=== PATIENT | male | born 1935 | race Caucasian/White ===

== ENCOUNTER → 2018-02-09 11:15 | Outpatient (CLI) | payer MEDICARE, OTHER, SELFPAY ==
[2017-10-21 10:03] VITALS: BMI 26.4
[2018-02-09 12:34] LABS: BUN Creatinine Ratio 26.2 (6-22); Blood Urea Nitrogen 34 mg/dL (9-20); Calcium 9.6 mg/dL (8.4-10.2); Carbon Dioxide 28 mmol/L (22-32); Chloride 91 mmol/L (98-107); Estimated Glomerular Filt Rate 53.1 mL/min (>60); Glucose 95 mg/dL (80-110); HEMOLYSIS < 15 (0-50); Potassium 5.3 mmol/L (3.4-5.1); Sodium 130 mmol/L (137-145)
== END ==
PROVIDERS: PCP Family Medicine; Visit Provider Family Medicine
DX: I10 Essential (primary) hypertension (principal)
CPT/HCPCS: 36415; 80048; 83735

== ENCOUNTER → 2018-03-24 09:07 | Outpatient (CLI) | payer MEDICARE, OTHER, SELFPAY ==
[2017-10-21 10:03] VITALS: BMI 26.4
[2018-03-24 10:51] LABS: BUN Creatinine Ratio 22.3 (6-22); Blood Urea Nitrogen 29 mg/dL (9-20); Calcium 9.3 mg/dL (8.4-10.2); Carbon Dioxide 27 mmol/L (22-32); Chloride 94 mmol/L (98-107); Estimated Glomerular Filt Rate 53.1 mL/min (>60); Glucose 112 mg/dL (80-110); HEMOLYSIS < 15 (0-50); Potassium 4.7 mmol/L (3.4-5.1); Sodium 134 mmol/L (137-145)
== END ==
PROVIDERS: Family Provider Family Medicine; PCP Family Medicine; Visit Provider Family Medicine
DX: N28.9 Disorder of kidney and ureter, unspecified (principal)
CPT/HCPCS: 36415; 80048

== ENCOUNTER → 2018-07-22 10:36 | Outpatient (CLI) | payer MEDICARE, OTHER, SELFPAY ==
[2017-10-21 10:03] VITALS: BMI 26.4
[2018-07-22 11:04] LABS: Add Manual Diff / Slide Review NO; Basophils Absolute Auto 100 /uL (0-100); Basophils Percent Auto 1.4 % (0-2); Eosinophils Absolute Auto 100 /uL (0-450); Eosinophils Percent Auto 1.7 % (2-4); Hematocrit 41.9 % (41-53); Hemoglobin 13.6 g/dL (13.5-17.5); Lymphocytes Absolute Auto 400 /uL (1100-4500); Lymphocytes Percent Auto 9.9 % (25-40); Mean Corpuscular HGB Conc 32.6 % (30-36); Mean Corpuscular Hemoglobin 31.8 PG (26-34); Mean Corpuscular Volume 97.6 fL (80-100); Monocytes Absolute Auto 900 /uL (0-900); Monocytes Percent Auto 21.4 % (3-14); Neutrophils Absolute Auto 2700 /uL (1500-7000); Neutrophils Percent Auto 65.6 % (50-75); Platelet Count 126 X10^3/uL (150-400); Red Blood Cell Count 4.29 X10^6/uL (4.5-5.9); Red Cell Distribution Width 15.3 % (11.6-14.8); White Blood Cell Count 4.2 X10^3/uL (4.5-11.0)
[2018-07-22 11:22] LABS: B Type Natriuretic Peptide 973 (<100)
[2018-07-22 11:43] LABS: Alanine Aminotransferase 35 IU/L (21-72); Albumin 4.8 g/dL (3.5-5.0); Albumin Globulin Ratio 1.4 (1.0-2.8); Alkaline Phosphatase 111 U/L (38-126); Aspartate Aminotransferase 54 IU/L (17-59); BUN Creatinine Ratio 22.7 (6-22); Bilirubin Total 0.6 mg/dL (0.2-1.3); Blood Urea Nitrogen 34 mg/dL (9-20); Calcium 9.6 mg/dL (8.4-10.2); Carbon Dioxide 23 mmol/L (22-32); Chloride 101 mmol/L (98-107); Globulin 3.5 g/dL (1.7-4.1); Glucose 83 mg/dL (80-110); HEMOLYSIS < 15 (0-50); Potassium 5.2 mmol/L (3.4-5.1); Sodium 136 mmol/L (137-145); Total Protein 8.3 g/dL (6.3-8.2)
== END ==
PROVIDERS: PCP Family Medicine; Visit Provider Family Medicine
DX: I50.9 Heart failure, unspecified (principal); Z51.81 Encounter for therapeutic drug level monitoring; Z79.01 Long term (current) use of anticoagulants
CPT/HCPCS: 36415; 80053; 83880; 85025

== ENCOUNTER → 2018-08-04 11:28 | Outpatient (CLI) | payer MEDICARE, OTHER, SELFPAY ==
[2017-10-21 10:03] VITALS: BMI 26.4
[2018-08-04 12:31] LABS: BUN Creatinine Ratio 22.3 (6-22); Blood Urea Nitrogen 29 mg/dL (9-20); Calcium 9.2 mg/dL (8.4-10.2); Carbon Dioxide 24 mmol/L (22-32); Chloride 96 mmol/L (98-107); Estimated Glomerular Filt Rate 53.1 mL/min (>60); Glucose 119 mg/dL (80-110); HEMOLYSIS < 15 (0-50); Potassium 4.6 mmol/L (3.4-5.1); Sodium 135 mmol/L (137-145)
[2018-08-04 12:53] LABS: B Type Natriuretic Peptide 1050 (<100)
== END ==
PROVIDERS: PCP Family Medicine; Visit Provider Family Medicine
DX: I50.32 Chronic diastolic (congestive) heart failure (principal)
CPT/HCPCS: 36415; 80048; 83880

== ENCOUNTER → 2018-12-11 09:06 | Outpatient (CLI) | payer MEDICARE, OTHER, SELFPAY ==
[2018-10-20 10:01] VITALS: BMI 27.1
[2018-12-11 09:38] LABS: Add Manual Diff / Slide Review NO; Basophils Absolute Auto 0 /uL (0-100); Eosinophils Absolute Auto 100 /uL (0-450); Eosinophils Percent Auto 2.3 % (2-4); Hematocrit 39.6 % (41-53); Hemoglobin 13.4 g/dL (13.5-17.5); Lymphocytes Absolute Auto 600 /uL (1100-4500); Mean Corpuscular HGB Conc 33.9 % (30-36); Mean Corpuscular Hemoglobin 32.9 PG (26-34); Mean Corpuscular Volume 96.9 fL (80-100); Monocytes Absolute Auto 600 /uL (0-900); Monocytes Percent Auto 11.7 % (3-14); Neutrophils Absolute Auto 3500 /uL (1500-7000); Platelet Count 111 X10^3/uL (150-400); Red Blood Cell Count 4.08 X10^6/uL (4.5-5.9); Red Cell Distribution Width 13.5 % (11.6-14.8); White Blood Cell Count 4.8 X10^3/uL (4.5-11.0)
[2018-12-11 09:42] LABS: Alanine Aminotransferase 23 IU/L (21-72); Albumin 4.5 g/dL (3.5-5.0); Albumin Globulin Ratio 1.5 (1.0-2.8); Alkaline Phosphatase 101 U/L (38-126); Aspartate Aminotransferase 34 IU/L (17-59); BUN Creatinine Ratio 22.3 (6-22); Blood Urea Nitrogen 29 mg/dL (9-20); Calcium 9.4 mg/dL (8.4-10.2); Carbon Dioxide 23 mmol/L (22-32); Chloride 96 mmol/L (98-107); Glucose 106 mg/dL (80-110); HEMOLYSIS < 15 (0-50); Magnesium 1.7 mg/dL (1.6-2.3); Potassium 5.1 mmol/L (3.4-5.1); Sodium 132 mmol/L (137-145); Total Protein 7.5 g/dL (6.3-8.2)
[2018-12-11 11:30] LABS: B Type Natriuretic Peptide 1170 (<100)
== END ==
PROVIDERS: PCP Family Medicine; Visit Provider Family Medicine
DX: I50.32 Chronic diastolic (congestive) heart failure (principal); K70.30 Alcoholic cirrhosis of liver without ascites; G62.0 Drug-induced polyneuropathy; R09.02 Hypoxemia; T45.1X5A Adverse effect of antineoplastic and immunosuppressive drugs, initial encounter
CPT/HCPCS: 36415; 80053; 83735; 83880; 85025

== ENCOUNTER → 2018-12-29 09:10 | Outpatient (CLI) | payer MEDICARE, OTHER, SELFPAY ==
[2018-10-20 10:01] VITALS: BMI 27.1
[2018-12-29 10:20] LABS: B Type Natriuretic Peptide 519 (<100)
[2018-12-29 10:30] LABS: Alanine Aminotransferase 33 IU/L (21-72); Albumin 4.5 g/dL (3.5-5.0); Albumin Globulin Ratio 1.4 (1.0-2.8); Alkaline Phosphatase 110 U/L (38-126); Aspartate Aminotransferase 47 IU/L (17-59); BUN Creatinine Ratio 28.6 (6-22); Blood Urea Nitrogen 40 mg/dL (9-20); Calcium 9.6 mg/dL (8.4-10.2); Carbon Dioxide 25 mmol/L (22-32); Chloride 93 mmol/L (98-107); Estimated Glomerular Filt Rate 48.6 mL/min (>60); Globulin 3.3 g/dL (1.7-4.1); Glucose 100 mg/dL (80-110); HEMOLYSIS < 15 (0-50); Potassium 5.2 mmol/L (3.4-5.1); Sodium 130 mmol/L (137-145); Total Protein 7.8 g/dL (6.3-8.2)
== END ==
PROVIDERS: PCP Family Medicine; Visit Provider Family Medicine
DX: K70.30 Alcoholic cirrhosis of liver without ascites (principal); I38 Endocarditis, valve unspecified; I50.9 Heart failure, unspecified
CPT/HCPCS: 36415; 80053; 83880

== ENCOUNTER → 2018-12-30 16:47 | Outpatient (CLI) | payer MEDICARE, OTHER, SELFPAY ==
[2018-10-20 10:01] VITALS: BMI 27.1
[2018-12-30 18:21] LABS: BUN Creatinine Ratio 28.8 (6-22); Blood Urea Nitrogen 46 mg/dL (9-20); Calcium 9.3 mg/dL (8.4-10.2); Carbon Dioxide 25 mmol/L (22-32); Chloride 93 mmol/L (98-107); Estimated Glomerular Filt Rate 41.7 mL/min (>60); Glucose 92 mg/dL (80-110); HEMOLYSIS < 15 (0-50); Potassium 5.3 mmol/L (3.4-5.1); Sodium 129 mmol/L (137-145)
== END ==
PROVIDERS: PCP Family Medicine; Visit Provider Family Medicine
DX: F10.10 Alcohol abuse, uncomplicated (principal); F10.21 Alcohol dependence, in remission; I50.32 Chronic diastolic (congestive) heart failure
CPT/HCPCS: 36415; 80048

== ENCOUNTER → 2019-02-19 11:18 | Outpatient (CLI) | payer MEDICARE, OTHER, SELFPAY ==
[2018-10-20 10:01] VITALS: BMI 27.1
[2019-02-19 12:21] LABS: Add Manual Diff / Slide Review NO; Basophils Absolute Auto 100 /uL (0-100); Basophils Percent Auto 1.4 % (0-2); Eosinophils Absolute Auto 100 /uL (0-450); Eosinophils Percent Auto 1.9 % (2-4); Hematocrit 37.2 % (41-53); Hemoglobin 12.3 g/dL (13.5-17.5); Lymphocytes Absolute Auto 600 /uL (1100-4500); Lymphocytes Percent Auto 11.7 % (25-40); Mean Corpuscular HGB Conc 33.1 % (30-36); Mean Corpuscular Hemoglobin 32.4 PG (26-34); Monocytes Absolute Auto 700 /uL (0-900); Monocytes Percent Auto 13.1 % (3-14); Neutrophils Absolute Auto 3700 /uL (1500-7000); Neutrophils Percent Auto 71.9 % (50-75); Platelet Count 133 X10^3/uL (150-400); Red Cell Distribution Width 15.7 % (11.6-14.8); White Blood Cell Count 5.2 X10^3/uL (4.5-11.0)
[2019-02-19 12:27] LABS: Alanine Aminotransferase 22 IU/L (21-72); Albumin 4.4 g/dL (3.5-5.0); Albumin Globulin Ratio 1.4 (1.0-2.8); Alkaline Phosphatase 100 U/L (38-126); Aspartate Aminotransferase 38 IU/L (17-59); BUN Creatinine Ratio 26.9 (6-22); Bilirubin Total 1.1 mg/dL (0.2-1.3); Blood Urea Nitrogen 35 mg/dL (9-20); Calcium 9.5 mg/dL (8.4-10.2); Carbon Dioxide 26 mmol/L (22-32); Chloride 104 mmol/L (98-107); Globulin 3.1 g/dL (1.7-4.1); Glucose 96 mg/dL (80-110); HEMOLYSIS < 15 (0-50); Magnesium 1.9 mg/dL (1.6-2.3); Potassium 4.3 mmol/L (3.4-5.1); Sodium 140 mmol/L (137-145); Total Protein 7.5 g/dL (6.3-8.2)
[2019-02-19 12:42] LABS: B Type Natriuretic Peptide 1200 (<100)
[2019-02-19 15:18] LABS: Creatinine Urine Random 43.2 mg/dL
[2019-02-19 15:23] LABS: Microalbumi Creatinin Ratio Ur 111.1 ug/mg CR (<30); Microalbumin Urine Random 4.8 mg/dL (0-1.6)
== END ==
PROVIDERS: PCP Family Medicine; Visit Provider Family Medicine
DX: G62.0 Drug-induced polyneuropathy (principal); I10 Essential (primary) hypertension; I48.91 Unspecified atrial fibrillation; K70.30 Alcoholic cirrhosis of liver without ascites; T45.1X5A Adverse effect of antineoplastic and immunosuppressive drugs, initial encounter
CPT/HCPCS: 36415; 80053; 82043; 82570; 83735; 83880; 85025

== ENCOUNTER → 2019-03-05 09:08 | Outpatient (CLI) | payer MEDICARE, OTHER, SELFPAY ==
[2018-10-20 10:01] VITALS: BMI 27.1
[2019-03-05 10:36] LABS: B Type Natriuretic Peptide 1130 (<100)
[2019-03-05 10:37] LABS: BUN Creatinine Ratio 27.1 (6-22); Blood Urea Nitrogen 38 mg/dL (9-20); Calcium 9.4 mg/dL (8.4-10.2); Carbon Dioxide 25 mmol/L (22-32); Chloride 102 mmol/L (98-107); Estimated Glomerular Filt Rate 48.6 mL/min (>60); Glucose 102 mg/dL (80-110); HEMOLYSIS < 15 (0-50); Magnesium 2.1 mg/dL (1.6-2.3); Potassium 4.5 mmol/L (3.4-5.1); Sodium 138 mmol/L (137-145)
== END ==
PROVIDERS: PCP Family Medicine; Visit Provider Family Medicine
DX: I50.9 Heart failure, unspecified (principal); G62.0 Drug-induced polyneuropathy; I10 Essential (primary) hypertension; I48.91 Unspecified atrial fibrillation; K70.30 Alcoholic cirrhosis of liver without ascites; T45.1X5A Adverse effect of antineoplastic and immunosuppressive drugs, initial encounter; F10.10 Alcohol abuse, uncomplicated; F10.21 Alcohol dependence, in remission; I50.32 Chronic diastolic (congestive) heart failure
CPT/HCPCS: 36415; 80048; 83735; 83880

== ENCOUNTER → 2019-05-20 08:03 | Outpatient (CLI) | payer MEDICARE, OTHER, SELFPAY ==
[2018-10-20 10:01] VITALS: BMI 27.1
[2019-05-20 09:43] LABS: INR 1.2 (0.9-1.3); Prothrombin Time 14.5 SECONDS (10.1-12.7)
== END ==
PROVIDERS: PCP Family Medicine; Visit Provider Internal Medicine Pulmonary Disease
DX: C34.90 Malignant neoplasm of unspecified part of unspecified bronchus or lung (principal)
CPT/HCPCS: 36415; 85610

== ENCOUNTER → 2019-05-31 09:07 | Outpatient (CLI) | payer MEDICARE, OTHER, SELFPAY ==
[2018-10-20 10:01] VITALS: BMI 27.1
== END ==
PROVIDERS: PCP Family Medicine; Visit Provider Internal Medicine Pulmonary Disease
DX: R91.1 Solitary pulmonary nodule (principal)
CPT/HCPCS: 86635

== ENCOUNTER → 2019-08-02 11:33 | Outpatient (CLI) | payer MEDICARE, OTHER, SELFPAY ==
[2018-10-20 10:01] VITALS: BMI 27.1
[2019-08-02 13:19] LABS: BUN Creatinine Ratio 24.9 (6-22); Blood Urea Nitrogen 46 mg/dL (9-20); Calcium 9.6 mg/dL (8.4-10.2); Carbon Dioxide 28 mmol/L (22-32); Chloride 103 mmol/L (98-107); Estimated Glomerular Filt Rate 35.3 mL/min (>60); Glucose 88 mg/dL (80-110); HEMOLYSIS < 15 (0-50); Magnesium 2.3 mg/dL (1.6-2.3); Potassium 4.9 mmol/L (3.4-5.1); Sodium 140 mmol/L (137-145)
== END ==
PROVIDERS: PCP Family Medicine; Referring Provider Family Medicine; Visit Provider Family Medicine
DX: I10 Essential (primary) hypertension (principal); I51.7 Cardiomegaly
CPT/HCPCS: 36415; 80048; 83735

== ENCOUNTER → 2019-08-20 09:21 | Outpatient (CLI) | payer MEDICARE, OTHER, SELFPAY ==
[2018-10-20 10:01] VITALS: BMI 27.1
[2019-08-20 10:14] LABS: Alanine Aminotransferase 14 IU/L (<50); Albumin 4.1 g/dL (3.5-5.0); Albumin Globulin Ratio 1.2 (1.0-2.8); Alkaline Phosphatase 149 U/L (38-126); Aspartate Aminotransferase 32 IU/L (17-59); BUN Creatinine Ratio 21.1 (6-22); Bilirubin Total 0.7 mg/dL (0.2-1.3); Blood Urea Nitrogen 34 mg/dL (9-20); Carbon Dioxide 24 mmol/L (22-32); Chloride 102 mmol/L (98-107); Estimated Glomerular Filt Rate 41.4 mL/min (>60); Globulin 3.4 g/dL (1.7-4.1); Glucose 94 mg/dL (80-110); HEMOLYSIS < 15 (0-50); Potassium 4.6 mmol/L (3.4-5.1); Sodium 135 mmol/L (137-145); Total Protein 7.5 g/dL (6.3-8.2)
== END ==
PROVIDERS: PCP Family Medicine
DX: K74.60 Unspecified cirrhosis of liver (principal)
CPT/HCPCS: 36415; 80053

== ENCOUNTER → 2019-09-08 08:04 | Outpatient (CLI) | payer MEDICARE, OTHER, SELFPAY ==
[2018-10-20 10:01] VITALS: BMI 27.1
[2019-09-08 12:23] LABS: Alanine Aminotransferase 15 IU/L (<50); Albumin 4.4 g/dL (3.5-5.0); Albumin Globulin Ratio 1.3 (1.0-2.8); Alkaline Phosphatase 142 U/L (38-126); Aspartate Aminotransferase 33 IU/L (17-59); BUN Creatinine Ratio 16.4 (6-22); Bilirubin Total 0.5 mg/dL (0.2-1.3); Blood Urea Nitrogen 39 mg/dL (9-20); Calcium 9.4 mg/dL (8.4-10.2); Carbon Dioxide 24 mmol/L (22-32); Chloride 100 mmol/L (98-107); Estimated Glomerular Filt Rate 26.4 mL/min (>60); Globulin 3.4 g/dL (1.7-4.1); Glucose 143 mg/dL (80-110); HEMOLYSIS < 15 (0-50); Sodium 138 mmol/L (137-145); Total Protein 7.8 g/dL (6.3-8.2)
[2019-09-08 12:29] LABS: Potassium 6.6 mmol/L (3.4-5.1)
== END ==
PROVIDERS: PCP Family Medicine; Referring Provider Family Medicine
DX: K74.60 Unspecified cirrhosis of liver (principal)
CPT/HCPCS: 36415; 80053

== ENCOUNTER → 2019-09-10 09:38 | Outpatient (CLI) | payer MEDICARE, OTHER, SELFPAY ==
[2018-10-20 10:01] VITALS: BMI 27.1
[2019-09-10 10:41] LABS: Alanine Aminotransferase 15 IU/L (<50); Albumin 4.5 g/dL (3.5-5.0); Albumin Globulin Ratio 1.2 (1.0-2.8); Alkaline Phosphatase 134 U/L (38-126); Aspartate Aminotransferase 34 IU/L (17-59); BUN Creatinine Ratio 18.1 (6-22); Bilirubin Total 0.8 mg/dL (0.2-1.3); Blood Urea Nitrogen 39 mg/dL (9-20); Calcium 9.4 mg/dL (8.4-10.2); Carbon Dioxide 25 mmol/L (22-32); Chloride 101 mmol/L (98-107); Estimated Glomerular Filt Rate 29.6 mL/min (>60); Globulin 3.7 g/dL (1.7-4.1); Glucose 102 mg/dL (80-110); HEMOLYSIS < 15 (0-50); Sodium 137 mmol/L (137-145); Total Protein 8.2 g/dL (6.3-8.2)
[2019-09-10 10:46] LABS: Potassium 5.4 mmol/L (3.4-5.1)
== END ==
PROVIDERS: PCP Family Medicine
DX: K74.60 Unspecified cirrhosis of liver (principal)
CPT/HCPCS: 36415; 80053

== ENCOUNTER → 2019-11-24 09:38 | Outpatient (CLI) | payer MEDICARE, OTHER, SELFPAY ==
[2018-10-20 10:01] VITALS: BMI 27.1
[2019-11-24 11:44] LABS: BUN Creatinine Ratio 17.5 (6-22); Blood Urea Nitrogen 28 mg/dL (9-20); Calcium 9.6 mg/dL (8.4-10.2); Carbon Dioxide 26 mmol/L (22-32); Chloride 101 mmol/L (98-107); Estimated Glomerular Filt Rate 41.6 mL/min (>60); Glucose 95 mg/dL (80-110); HEMOLYSIS < 15 (0-50); Sodium 138 mmol/L (137-145)
== END ==
PROVIDERS: PCP Family Medicine; Referring Provider Nuclear Medicine Nuclear Cardiology; Visit Provider Nuclear Medicine Nuclear Cardiology
DX: I50.9 Heart failure, unspecified (principal)
CPT/HCPCS: 36415; 80048

== ENCOUNTER → 2020-01-28 14:51 | Outpatient (CLI) | payer MEDICARE, OTHER, SELFPAY ==
[2018-10-20 10:01] VITALS: BMI 27.1
--- NOTE | 2020-01-28 14:58 | DI.RAD.S_ITS ---
PROCEDURE: XR SHOULDER LT MIN 2V INDICATIONS: Progressive neck and left shoulder pain TECHNIQUE: 2 views of the shoulder were acquired. COMPARISON: None. FINDINGS: Bones: No fractures or dislocations. No suspicious bony lesions. Visualized ribs appear intact. Moderate to severe acromioclavicular degenerative narrowing. Soft tissues: No suspicious soft tissue calcifications. Heart appears mildly enlarged. IMPRESSION: Moderate to severe acromioclavicular degenerative narrowing. Dictated by: Diana Narvaez M.D. on 01/28/2020 at 17:02 Approved by: Diana Narvaez M.D. on 01/28/2020 at 17:02
--- NOTE | 2020-01-28 14:58 | DI.RAD.S_ITS ---
PROCEDURE: XR CERVICAL SPINE 2V OR 3V INDICATIONS: Progressive neck and left shoulder pain TECHNIQUE: 3 view(s) of the cervical spine were acquired. COMPARISON: None. FINDINGS: Bones: No fractures or dislocations to the C7-T1 level. The lateral masses of C1 appear intact on the odontoid view. No suspicious bony lesions. There is reversal of cervical curvature. There is trace anterolisthesis of C5 on C6 trace retrolisthesis of C6 on C7. Moderate to severe disc space narrowing is present at C5-6, severe at C6-7. Anterior bridging osteophytes are most notable at C6-7. Multilevel uncovertebral arthropathy is present. Soft tissues: No prevertebral soft tissue swelling. IMPRESSION: Multilevel degenerative changes most prominent C6-7. Dictated by: Diana Narvaez M.D. on 01/28/2020 at 17:01 Approved by: Daina Narvaez M.D. on 01/28/2020 at 17:02
== END ==
PROVIDERS: PCP Family Medicine; Referring Provider Family Medicine; Visit Provider Family Medicine
DX: M54.2 Cervicalgia (principal); M25.512 Pain in left shoulder; M47.812 Spondylosis without myelopathy or radiculopathy, cervical region
CPT/HCPCS: 72040; 73030

== ENCOUNTER → 2020-03-06 11:20 | Outpatient (CLI) | payer MEDICARE, OTHER, SELFPAY ==
[2018-10-20 10:01] VITALS: BMI 27.1
[2020-03-07 13:29] LABS: COVID19 Sendout Not Detected (Not Detect)
== END ==
PROVIDERS: PCP Family Medicine; Visit Provider Physician Assistant
DX: Z01.812 Encounter for preprocedural laboratory examination (principal)
CPT/HCPCS: 87635

== ENCOUNTER 2020-05-15 20:43 | Emergency (ER) | payer MEDICARE, OTHER, SELFPAY ==
[2020-03-14 14:47] VITALS: BMI 27.1
[2020-05-15 20:47] VITALS: BP 136/63; PULSE 83; RESP 22; TEMP 36.3; O2SAT 90
[2020-05-15 21:12] LABS: Add Manual Diff / Slide Review NO; Basophils Absolute Auto 100 /uL (0-100); Basophils Percent Auto 0.9 % (0-2); Eosinophils Absolute Auto 300 /uL (0-450); Hematocrit 37.2 % (41-53); Lymphocytes Absolute Auto 1100 /uL (1100-4500); Lymphocytes Percent Auto 12.4 % (25-40); Mean Corpuscular HGB Conc 32.4 % (30-36); Mean Corpuscular Hemoglobin 30.5 PG (26-34); Mean Corpuscular Volume 94.3 fL (80-100); Monocytes Absolute Auto 700 /uL (0-900); Neutrophils Absolute Auto 6800 /uL (1500-7000); Neutrophils Percent Auto 75.7 % (50-75); Platelet Count 202 X10^3/uL (150-400); Red Blood Cell Count 3.95 X10^6/uL (4.5-5.9); Red Cell Distribution Width 15.1 % (11.6-14.8)
[2020-05-15 21:13] VITALS: BP 140/65; PULSE 73; RESP 15; O2SAT 100
[2020-05-15 21:24] LABS: Alanine Aminotransferase 20 IU/L (<50); Albumin 4.3 g/dL (3.5-5.0); Alkaline Phosphatase 157 U/L (38-126); Aspartate Aminotransferase 28 IU/L (17-59); Bilirubin Total 0.4 mg/dL (0.2-1.3); Blood Urea Nitrogen 53 mg/dL (9-20); Calcium 9.4 mg/dL (8.4-10.2); Carbon Dioxide 26 mmol/L (22-32); Chloride 104 mmol/L (98-107); Estimated Glomerular Filt Rate 20.5 mL/min (>60); Globulin 4.4 g/dL (1.7-4.1); Glucose 119 mg/dL (80-110); HEMOLYSIS < 15 (0-50); Potassium 5.2 mmol/L (3.4-5.1); Sodium 138 mmol/L (137-145); Total Protein 8.7 g/dL (6.3-8.2)
[2020-05-15 21:30] VITALS: BP 135/65; PULSE 76; RESP 19
[2020-05-15 22:01] VITALS: BP 130/63; PULSE 69; RESP 14; O2SAT 100
--- NOTE | 2020-05-15 22:19 | ED_ITS ---
HPI - Recheck/Abnormal Lab/Rx General Chief Complaint: Recheck/Abnormal Lab/Rx Stated Complaint: Elevated Potassium Time Seen by Provider: 05/15/20 20:57 Source: patient Mode of arrival: Ambulatory History of Present Illness HPI narrative: 84-year-old gentleman presents to the emergency room after being contacted by outpatient physician regarding abnormal lab work today. His potassium was elevated as was his creatinine. He is actually feeling quite well and would not considered coming to the emergency room last he had been directed to do so. Related Data Home Medications Medication Instructions Recorded Confirmed digoxin [Lanoxin] 0.125 mg PO QDAY #0 10/29/12 02/14/20 furosemide 20 mg tablet 40 mg PO QDAY tab 12/21/19 02/14/20 Previous Rx's Medication Instructions Recorded albuterol sulfate [Ventolin HFA] 1 puff INH Q4HP PRN #1 ea 09/03/17 metoprolol succinate 200 mg 200 mg PO QDAY #90 tab 02/09/18 tablet,extended release 24 hr spironolactone 25 mg tablet 25 mg PO DAILY #30 tab 12/16/18 losartan 100 mg tablet 50 mg PO QDAY #45 tab 08/05/19 Handicap Placard #1 ea 08/18/19 warfarin 5 mg tablet See Rx Instructions PO DAILY #90 12/22/19 tab lidocaine 5 % topical patch 1 patch TOP DAILY #30 each 02/14/20 gabapentin 300 mg capsule 300 mg PO BEDTIME #90 cap 03/08/20 Allergies Allergy/AdvReac Type Severity Reaction Status Date / Time Penicillins Allergy Mild RASH Verified 02/14/20 10:50 Review of Systems Review of Systems Narrative: Pertinent positive and negative findings as per HPI Remainder of review of systems is otherwise unremarkable for Constitutional: Fevers, chills, ENT: No sore throat, neck pain, ear pain CV: Chest pain, palpitations, Respiratory: Cough, wheeze, GI: Nausea, vomiting, diarrhea, Patient History Medical History (HFpEF) heart failure with preserved ejection fraction Atrial fibrillation Cataract Cirrhosis COPD (chronic obstructive pulmonary disease) (~2011) Foot pain (~2012) Hearing deficit Heart failure, systolic Hyperlipidemia Hyperparathyroidism Hypertension Lower extremity neuropathy Lung cancer (~2012) Neck pain Normal stress echocardiogram (~09/12/10) Shoulder pain Surgical History Status post parathyroidectomy (~1982) Surgical procedure planned (~06/08/12) Family History Sister Hypertension Social History Smoking Status: Former smoker Tobacco: How many years used: 30 Smoking Status: Former smoker Exam Narrative Exam Narrative: General: no acute distress. Able to give a complete and coher ent history. HEENT: Moist mucous membranes, normal sclera with reactive pupils, Neck: No JVD, supple Respiratory: Lungs are clear to auscultation, no wheezing no rales no rhonchi. Full and symmetrical air movement Cardiac: Irrgular rate and rhythm, no murmurs no bruits Abdomen: Soft, nontender good bowel tones, no flank pain Skin: Warm and dry, no rashes Neurologic: Grossly neurologically intact with no obvious asymmetries or abnormalities Extremities: No trauma, well perfused Psych: Cooperative, appropriate insight and affect Initial Vital Signs Initial Vital Signs: Vital Signs Temperature 97.3 F L 05/15/20 20:47 Pulse Rate 83 05/15/20 20:47 Respiratory Rate 22 05/15/20 20:47 Blood Pressure 136/63 05/15/20 20:47 Pulse Oximetry 90 L 05/15/20 20:47 Course Orders Ordered: ED Orders 05/15/20 20:57 EKG-12 Lead Stat 05/15/20 21:05 Complete Blood Count AUTO DIFF Stat Comprehensive Metabolic Panel Stat Digoxin Stat Prothrombin Time INR Stat Vital Signs Vital signs: Vital Signs - 8 hr 05/15/20 22:30 05/15/20 23:00 Pulse Rate 70 69 Respiratory Rate 12 11 L Blood Pressure 144/64 H 142/64 H Pulse Oximetry 100 100 MDM - Recheck/Abnormal Lab/Rx Medical Records Attestation: I reviewed the patient's medical records. Lab Data Attestation: I reviewed the patient's lab results. Result diagrams: 05/15/20 21:05 05/15/20 21:05 Labs: Lab Results 05/15/20 05/15/20 05/15/20 Range/Units 21:05 21:05 21:05 WBC 9.0 (4.5-11.0) X10^3/uL RBC 3.95 L (4.5-5.9) X10^6/uL Hgb 12.0 L (13.5-17.5) g/dL Hct 37.2 L (41-53) % MCV 94.3 (80-100) fL MCH 30.5 (26-34) PG MCHC 32.4 (30-36) % RDW 15.1 H (11.6-14.8) % Plt Count 202 (150-400) X10^3/uL Neut % (Auto) 75.7 H (50-75) % Lymph % (Auto) 12.4 L (25-40) % Caldwell % (Auto) 8.0 (3-14) % Eos % (Auto) 3.0 (2-4) % Baso % (Auto) 0.9 (0-2) % Neut # (Auto) 6800 (8778-3596) /uL Lymph # (Auto) 1100 (7803-8869) /uL Caldwell # (Auto) 700 (0-900) /uL Eos # (Auto) 300 (0-450) /uL Baso # (Auto) 100 (0-100) /uL PT 34.2 H (10.1-12.7) SECONDS INR 3.0 H (0.9-1.3) Sodium 138 (137-145) mmol/L Potassium 5.2 H (3.4-5.1) mmol/L Chloride 104 (98-107) mmol/L Carbon Dioxide 26 (22-32) mmol/L BUN 53 H (9-20) mg/dL Creatinine 2.95 H (0.66-1.25) mg/dL Estimated GFR 20.5 L (>60) mL/min BUN/Creatinine Ratio 18.0 (6-22) Glucose 119 H (80-110) mg/dL Calcium 9.4 (8.4-10.2) mg/dL Total Bilirubin 0.4 (0.2-1.3) mg/dL AST 28 (17-59) IU/L ALT 20 (<50) IU/L Alkaline Phosphatase 157 H (38-126) U/L Total Protein 8.7 H (6.3-8.2) g/dL Albumin 4.3 (3.5-5.0) g/dL Globulin 4.4 H (1.7-4.1) g/dL Albumin/Globulin Ratio 1.0 (1.0-2.8) Digoxin (0.8-2.0) ng/mL 05/15/20 Range/Units 21:05 WBC (4.5-11.0) X10^3/uL RBC (4.5-5.9) X10^6/uL Hgb (13.5-17.5) g/dL Hct (41-53) % MCV (80-100) fL MCH (26-34) PG MCHC (30-36) % RDW (11.6-14.8) % Plt Count (150-400) X10^3/uL Neut % (Auto) (50-75) % Lymph % (Auto) (25-40) % Caldwell % (Auto) (3-14) % Eos % (Auto) (2-4) % Baso % (Auto) (0-2) % Neut # (Auto) (9349-8472) /uL Lymph # (Auto) (8215-6833) /uL Caldwell # (Auto) (0-900) /uL Eos # (Auto) (0-450) /uL Baso # (Auto) (0-100) /uL PT (10.1-12.7) SECONDS INR (0.9-1.3) Sodium (137-145) mmol/L Potassium (3.4-5.1) mmol/L Chloride (98-107) mmol/L Carbon Dioxide (22-32) mmol/L BUN (9-20) mg/dL Creatinine (0.66-1.25) mg/dL Estimated GFR (>60) mL/min BUN/Creatinine Ratio (6-22) Glucose (80-110) mg/dL Calcium (8.4-10.2) mg/dL Total Bilirubin (0.2-1.3) mg/dL AST (17-59) IU/L ALT (<50) IU/L Alkaline Phosphatase (38-126) U/L Total Protein (6.3-8.2) g/dL Albumin (3.5-5.0) g/dL Globulin (1.7-4.1) g/dL Albumin/Globulin Ratio (1.0-2.8) Digoxin 0.9 (0.8-2.0) ng/mL ECG Data Attestation: I personally reviewed and interpreted this ECG as follows: Interpretation: Atrial fibrillation at a rate of 72 Leftward axis, incomplete right bundle branch block Nonspecific ST T wave abnormalities without evidence of acute ischemia or peaked T-waves, similar to August 2015 EKG MDM Narrative Medical decision making narrative: 84-year-old gentleman with complex medical history. Increasing neck pain with concern for infectious disease component. Scheduled to see infectious disease on 05/17 and had pre visit lab work done today that revealed new acute kidney injury and elevated potassium. Repeat labs today show potassium is back to a safe range with EKG not showing any acute changes consistent with hyperkalemia. Kidney function is somewhat improved. He does have a history of congestive heart failure and is currently on spironolactone and Lasix for this. Will ask him to discontinue the spironolactone for the time being and hold the Lasix for the next 3 days. Will ask him to follow-up with his primary care physician with lab work prior in 3-4 days. Clearly reviewed signs and symptoms of increasing heart failure and asked that he return to the emergency department with increasing orthopnea, dyspnea or lower extremity edema. He is safe for home discharge Discharge Plan Departure Patient Disposition: Home Clinical Impression: Acute hyperkalemia, Acute kidney injury Activity Restrictions/Additional Instructions: Thank you for coming in today You had blood work earlier this morning that showed your potassium level at 6.5 and your creatinine at 3.2. Your sent to the emergency room to have these values recheck it. Your potassium level on repeat testing was down to 5.2 and the creatinine is down to 2.9. When kidney function changes so significantly digoxin and warfarin levels can also change. Fortunately your digoxin was in the appropriate range (.9) and your INR was appropriate at 3 To make sure that your potassium level continues at a safe level and to protect her kidney is am going to ask you to stop the spironolactone and hold the furosemide until May 20. You will need close follow-up with all of these parameters. I would recommend a repeat blood draw the morning of May [address] Shepherd the afternoon of the If you notice palpitations, chest pain, increasing shortness of breath while laying flat or exercising, significantly increased lower extremity edema or othe r problems, please return to the emergency department immediately Prescriptions: No Action digoxin [Lanoxin] 250 MCG tablet 0.125 mg PO QDAY Qty: 0 RF: 0 albuterol sulfate [Ventolin HFA] 90 MCG/PUFF HFA aerosol inhaler 1 puff INH Q4HP PRNQty: 1 RF: 5 losartan 100 mg tablet 50 mg PO QDAY Qty: 45 RF: 3 (DME) Handicap Placard Qty: 1 RF: 0 furosemide [Lasix] 20 mg tablet 40 mg PO QDAY RF: 0 warfarin [Coumadin] 5 mg tablet See Rx Instructions PO DAILY Qty: 90 RF: 3 gabapentin 300 mg capsule 300 mg PO BEDTIME Qty: 90 RF: 1 metoprolol succinate [Toprol XL] 200 mg tablet extended release 24 hr 200 mg PO QDAY Qty: 90 RF: 3 spironolactone 25 mg tablet 25 mg PO DAILY Qty: 30 RF: 1 lidocaine 5 % adhesive patch,medicated 1 patch TOP DAILY Qty: 30 RF: 5 Referrals: Ashwin Shepherd, [Primary Care Provider] -
[2020-05-15 22:30] VITALS: BP 144/64; PULSE 70; RESP 12; O2SAT 100
[2020-05-15 22:31] LABS: Prothrombin Time 34.2 SECONDS (10.1-12.7)
[2020-05-15 22:50] LABS: Digoxin 0.9 ng/mL (0.8-2.0)
[2020-05-15 23:00] VITALS: BP 142/64; PULSE 69; RESP 11; O2SAT 100
== END 2020-05-15 23:36 | disposition home or self-care (01) ==
PROVIDERS: Emergency Provider Emergency Medicine; Family Provider Family Medicine; PCP Family Medicine
DX: E87.5 Hyperkalemia (principal); N17.9 Acute kidney failure, unspecified; I48.91 Unspecified atrial fibrillation; I11.0 Hypertensive heart disease with heart failure; I50.9 Heart failure, unspecified; E21.3 Hyperparathyroidism, unspecified; R07.9 Chest pain, unspecified
CPT/HCPCS: 36415; 80053; 80162; 85025; 85610; 93005; 99285

== ENCOUNTER → 2020-05-26 11:38 | Outpatient (CLI) | payer MEDICARE, OTHER, SELFPAY ==
[2020-05-22 10:54] VITALS: BMI 27.1
[2020-05-26 12:59] LABS: Add Manual Diff / Slide Review NO; Basophils Absolute Auto 100 /uL (0-100); Basophils Percent Auto 0.7 % (0-2); Eosinophils Absolute Auto 200 /uL (0-450); Eosinophils Percent Auto 2.9 % (2-4); Hematocrit 34.1 % (41-53); Hemoglobin 11.1 g/dL (13.5-17.5); Lymphocytes Absolute Auto 800 /uL (1100-4500); Lymphocytes Percent Auto 9.4 % (25-40); Mean Corpuscular HGB Conc 32.7 % (30-36); Mean Corpuscular Hemoglobin 30.8 PG (26-34); Mean Corpuscular Volume 94.1 fL (80-100); Monocytes Absolute Auto 700 /uL (0-900); Monocytes Percent Auto 9.4 % (3-14); Neutrophils Absolute Auto 6200 /uL (1500-7000); Neutrophils Percent Auto 77.6 % (50-75); Platelet Count 169 X10^3/uL (150-400); Red Blood Cell Count 3.62 X10^6/uL (4.5-5.9); Red Cell Distribution Width 14.9 % (11.6-14.8)
[2020-05-26 13:31] LABS: Alanine Aminotransferase 19 IU/L (<50); Albumin Globulin Ratio 1.2 (1.0-2.8); Alkaline Phosphatase 141 U/L (38-126); Aspartate Aminotransferase 30 IU/L (17-59); BUN Creatinine Ratio 18.5 (6-22); Bilirubin Total 0.3 mg/dL (0.2-1.3); Blood Urea Nitrogen 46 mg/dL (9-20); Calcium 9.5 mg/dL (8.4-10.2); Carbon Dioxide 26 mmol/L (22-32); Chloride 107 mmol/L (98-107); Globulin 3.4 g/dL (1.7-4.1); Glucose 89 mg/dL (80-110); HEMOLYSIS < 15 (0-50); Sodium 140 mmol/L (137-145); Total Protein 7.4 g/dL (6.3-8.2)
[2020-05-26 13:32] LABS: Potassium 6.1 mmol/L (3.4-5.1)
[2020-05-26 14:01] LABS: Thyroid Stimulating Hormone 7.04 uIU/mL (0.47-4.68)
== END ==
PROVIDERS: Family Provider Family Medicine; PCP Family Medicine; Referring Provider Internal Medicine Hematology & Oncology; Visit Provider Internal Medicine Hematology & Oncology
DX: C34.90 Malignant neoplasm of unspecified part of unspecified bronchus or lung (principal)
CPT/HCPCS: 36415; 80053; 84443; 85025

== ENCOUNTER → 2020-06-16 12:52 | Outpatient (CLI) | payer MEDICARE, OTHER, SELFPAY ==
[2020-05-22 10:54] VITALS: BMI 27.1
[2020-06-06 12:47] VITALS: O2SAT 87
[2020-06-16 14:05] LABS: Add Manual Diff / Slide Review NO; Basophils Absolute Auto 100 /uL (0-100); Basophils Percent Auto 0.8 % (0-2); Eosinophils Absolute Auto 200 /uL (0-450); Eosinophils Percent Auto 2.7 % (2-4); Hematocrit 35.4 % (41-53); Hemoglobin 11.2 g/dL (13.5-17.5); Lymphocytes Absolute Auto 600 /uL (1100-4500); Lymphocytes Percent Auto 8.9 % (25-40); Mean Corpuscular HGB Conc 31.6 % (30-36); Mean Corpuscular Hemoglobin 29.8 PG (26-34); Mean Corpuscular Volume 94.3 fL (80-100); Monocytes Absolute Auto 600 /uL (0-900); Monocytes Percent Auto 8.5 % (3-14); Neutrophils Absolute Auto 5600 /uL (1500-7000); Neutrophils Percent Auto 79.1 % (50-75); Platelet Count 158 X10^3/uL (150-400); Red Blood Cell Count 3.75 X10^6/uL (4.5-5.9); Red Cell Distribution Width 15.6 % (11.6-14.8); White Blood Cell Count 7.1 X10^3/uL (4.5-11.0)
[2020-06-16 14:20] LABS: Alanine Aminotransferase 16 IU/L (<50); Albumin 4.2 g/dL (3.5-5.0); Albumin Globulin Ratio 1.1 (1.0-2.8); Alkaline Phosphatase 147 U/L (38-126); Aspartate Aminotransferase 29 IU/L (17-59); BUN Creatinine Ratio 16.1 (6-22); Bilirubin Total 0.5 mg/dL (0.2-1.3); Blood Urea Nitrogen 32 mg/dL (9-20); Calcium 9.4 mg/dL (8.4-10.2); Carbon Dioxide 27 mmol/L (22-32); Chloride 108 mmol/L (98-107); Estimated Glomerular Filt Rate 32.3 mL/min (>60); Globulin 3.9 g/dL (1.7-4.1); Glucose 97 mg/dL (80-110); HEMOLYSIS < 15 (0-50); Potassium 5.1 mmol/L (3.4-5.1); Sodium 141 mmol/L (137-145); Total Protein 8.1 g/dL (6.3-8.2)
[2020-06-16 15:15] LABS: Thyroid Stimulating Hormone 5.72 uIU/mL (0.47-4.68)
== END ==
PROVIDERS: Family Provider Family Medicine; PCP Family Medicine; Referring Provider Internal Medicine Hematology & Oncology; Visit Provider Internal Medicine Hematology & Oncology
DX: C34.90 Malignant neoplasm of unspecified part of unspecified bronchus or lung (principal)
CPT/HCPCS: 36415; 80053; 84443; 85025

== ENCOUNTER → 2020-07-07 12:16 | Outpatient (CLI) | payer MEDICARE, OTHER, SELFPAY ==
[2020-05-22 10:54] VITALS: BMI 27.1
[2020-06-06 12:47] VITALS: O2SAT 87
[2020-07-07 14:31] LABS: Alanine Aminotransferase 16 IU/L (<50); Albumin 3.9 g/dL (3.5-5.0); Albumin Globulin Ratio 1.1 (1.0-2.8); Alkaline Phosphatase 146 U/L (38-126); Aspartate Aminotransferase 29 IU/L (17-59); BUN Creatinine Ratio 19.3 (6-22); Bilirubin Total 0.5 mg/dL (0.2-1.3); Blood Urea Nitrogen 34 mg/dL (9-20); Calcium 9.2 mg/dL (8.4-10.2); Carbon Dioxide 28 mmol/L (22-32); Chloride 103 mmol/L (98-107); Estimated Glomerular Filt Rate 37.3 mL/min (>60); Globulin 3.4 g/dL (1.7-4.1); Glucose 126 mg/dL (80-110); HEMOLYSIS < 15 (0-50); Potassium 5.3 mmol/L (3.4-5.1); Sodium 139 mmol/L (137-145); Total Protein 7.3 g/dL (6.3-8.2)
[2020-07-07 14:33] LABS: Add Manual Diff / Slide Review NO; Basophils Absolute Auto 100 /uL (0-100); Basophils Percent Auto 1.1 % (0-2); Eosinophils Absolute Auto 300 /uL (0-450); Eosinophils Percent Auto 4.9 % (2-4); Hematocrit 36.1 % (41-53); Hemoglobin 11.9 g/dL (13.5-17.5); Lymphocytes Absolute Auto 700 /uL (1100-4500); Lymphocytes Percent Auto 10.6 % (25-40); Mean Corpuscular HGB Conc 32.9 % (30-36); Mean Corpuscular Hemoglobin 30.1 PG (26-34); Mean Corpuscular Volume 91.4 fL (80-100); Monocytes Absolute Auto 500 /uL (0-900); Monocytes Percent Auto 7.8 % (3-14); Neutrophils Absolute Auto 5100 /uL (1500-7000); Neutrophils Percent Auto 75.6 % (50-75); Platelet Count 173 X10^3/uL (150-400); Red Blood Cell Count 3.95 X10^6/uL (4.5-5.9); Red Cell Distribution Width 14.4 % (11.6-14.8); White Blood Cell Count 6.8 X10^3/uL (4.5-11.0)
[2020-07-07 15:45] LABS: Thyroid Stimulating Hormone 5.43 uIU/mL (0.47-4.68)
== END ==
PROVIDERS: Family Provider Family Medicine; PCP Family Medicine; Referring Provider Internal Medicine Hematology & Oncology; Visit Provider Internal Medicine Hematology & Oncology
DX: C34.90 Malignant neoplasm of unspecified part of unspecified bronchus or lung; I10 Essential (primary) hypertension
CPT/HCPCS: 36415; 80053; 84443; 85025

== ENCOUNTER 2020-07-21 11:15 | Outpatient (RCR) | payer MEDICARE, OTHER, SELFPAY ==
[2020-03-14 14:47] VITALS: BMI 27.1
--- NOTE | 2020-05-16 17:30 | PT.OIE ---
Current Diagnoses Spondylolisthesis, cervical region (05/16/20) Spondylosis without myelopathy or radiculopathy, cervical region (05/16/20) Other specified dorsopathies, cervical region (05/16/20) Radiculopathy, cervical region (05/16/20) Past Medical History (Last Reviewed 05/16/20 @ 06:18 by Sherri Dee MD) (HFpEF) heart failure with preserved ejection fraction Atrial fibrillation Cataract Cirrhosis COPD (chronic obstructive pulmonary disease) (~2011) Foot pain (~2012) Hearing deficit Heart failure, systolic Hyperlipidemia Hyperparathyroidism Hypertension Lower extremity neuropathy Lung cancer (~2012) Neck pain Normal stress echocardiogram (~09/12/10) Shoulder pain Past Surgical History (Last Reviewed 05/16/20 @ 06:18 by Sherri Dee MD) Status post parathyroidectomy (~1982) Surgical procedure planned (~06/08/12) Visit Care Team Role Provider Type Ashwin Shepherd DO Family Provider Physician Primary Care Provider Specialty: Family Practice Address: [address] [place] [address], [facility] Email: [email or web address] Sathya Terry DO Attending Provider Non-Staff Referring Provider Specialty: Medical Address: [address] [place] [address], [id number] Email: Physical Therapy Initial Evaluation PT-OP-A Visit Information Start: 05/15/20 18:10 Freq: Status: Active Protocol: Document 05/16/20 11:25 LRN (Rec: 05/16/20 12:34 LRN [id number]) Out-Patient Physical Therapy Visit Information Visit Information Visit Type Initial Evaluation Visit Start Time 11:25 Visit Stop Time 12:10 Total Visit Minutes 45 Visit Number 1 Evaluation Information Evaluation Date 05/16/20 Precautions Precautions Lung CA that is malignant, COPD on 2L O2 via nasal cannula, A. Fib, HTN, history of heart failure ( systolic) with preserved ejection fraction, LE neuropathy, foot pain, bilateral shoulder pain, hearing deficit. PT-OP-B Current Condition Start: 05/15/20 18:10 Freq: Status: Active Protocol: Document 05/16/20 11:25 LRN (Rec: 05/16/20 12:34 LRN [id number]) Current Condition History of Current Condition Onset Date 3 months ago Current Complaints Can't turn head or up/down History of Current Condition Insidious onset. Not ever had before. Prior Treatments and Tests Xray & MRI @ [facility] ER last night due to high Potasium level and kidney function not good. Developmental History Developmental History None Treatment Goals Patient/Caregiver Goals Pt goal is to be able to turn the neck to see sideways to drive (last drove 9 months ago ). Sometimes wakes him up at night (2x/night). 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 Current Functional Impairments (Reported) Functional Limitations- ADL's Wakes him up 2x/night . Not able to drive because can' t turn head. 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 Personal Factors Other Personal Factors That May Effect Lung CA that is malignant, Therapy/Recovery Heart Failure, A fib, Cirrhosis, COPD on 2L O2 since 07/2019 via nasal canula, foot pain, HTN, LE neuropathy, shoulder pain, neck pain. PT-OP-C Subjective Start: 05/15/20 18:10 Freq: Status: Active Protocol: Document 05/16/20 11:25 LRN (Rec: 05/16/20 12:34 LRN [id number]) Patient Questionnaires Neck Disability Index NDI Score 22 Neck Disability Index Impairment 40 to 59% Impaired (Score 20- 29) Quick Dash- Upper Extremity Quick Dash UE Score 61.36 Quick Dash UE Impairment 60 to 79% Impaired (Score 60- 79) OP-PT Pain Assessment Pain Assessment Grid Paper Pain Assessment Grid Completed Yes Location Shoulders Pain Location Details Base of neck Intensity 2 Scale Used Numeric (0 - 10) Description- Other Shoulder pain at base of neck when looking up Frequency Intermittent Pain Duration Present with neck pain Neck Pain Location Details Posterior neck Intensity 2 Scale Used Numeric (0 - 10) Description Burning Description- Other Was sharp/stabbing initially Frequency Intermittent Pain Duration Present when lifting the head and rotating. No pain at rest Radiating Location bilateral shoulders Other Pain Aggravating Factors With neck extension (lifting head) Pain Alleviating Factors Position Other Pain Alleviating Factors Head forward alleviates pain. PT-OP-H Neuro Start: 05/15/20 18:10 Freq: Status: Active Protocol: Document 05/16/20 11:25 LRN (Rec: 05/16/20 12:34 LRN [id number]) Sensation Evaluation Gross Sensation Gross Sensation Right UE Impaired Sensation Description Tingling Comments Summary Comments R hand tingling. PT-OP-J Posture/Palpation/Skin Start: 05/15/20 18:10 Freq: Status: Active Protocol: Document 05/16/20 11:25 LRN (Rec: 05/16/20 12:34 LRN [id number]) Posture Evaluation Position Sitting Head/C-Spine Posture Forward Head T-Spine Posture Increased Kyphosis Shoulder Posture (L) Rounded,(R) Rounded,(L) Forward,(R) Forward Pelvis Posture Posterior Tilted Palpation Assessment Location Horace Upper trapezius Palpation Location Base of neck Palpation Findings Soft Tissue Tightness, Tenderness Neck Palpation Location Cervical paraspinals Palpation Findings Soft Tissue Tightness, Tenderness PT-OP-K Range of Motion Start: 05/15/20 18:10 Freq: Status: Active Protocol: Document 05/16/20 11:25 LRN (Rec: 05/16/20 12:34 LRN [id number]) Cervical Spine Range of Motion Cervical Spine Active Degrees Testing Position Sitting Flexion 53 Rotation Left 20 Rotation Right 10 ROM Limitations Pain Shoulder Goniometric Range of Motion Shoulder Right Active Testing Position Sitting Flexion 120 Abduction 175 Comments AB is within scapular plane Left Active Testing Position Sitting Flexion 120 Abduction 170 Comments AB is within scapular plane PT-OP-L Special Tests Start: 05/15/20 18:10 Freq: Status: Active Protocol: Document 05/16/20 11:25 LRN (Rec: 05/16/20 12:34 LRN [id number]) Special Tests Cervical Spine Special Tests Vertebral Artery Test Results negative in available range and positioning Traction Test Results negative in sitting Foraminal Compression Test Results negative in sitting PT-OP-M Strength Start: 05/15/20 18:10 Freq: Status: Active Protocol: Document 05/16/20 11:25 LRN (Rec: 05/16/20 12:34 LRN [id number]) Cervical Spine Strength Cervical Spine Manual Muscle Testing Testing Position Sitting Flexion (C1-2) 3 Fair Extension 3- Fair- Shoulder Strength Shoulder Manual Muscle Testing Right Flexion 5 Normal Abduction (C5) 5 Normal External Rotation 3 Fair Internal Rotation 5 Normal Left Flexion 5 Normal Abduction (C5) 5 Normal External Rotation 3 Fair Internal Rotation 5 Normal PT-OP-Q Treatments Start: 05/15/20 18:10 Freq: Status: Active Protocol: Document 05/16/20 11:25 LRN (Rec: 05/16/20 12:34 LRN [id number]) Self-Care/Home Management Treatment Education Patient Education Home Exercise Program Other Education Discussed results of evaluation and educated pt in proper posturing in sitting and at rest, with instructions for supporting head during day to prevent further forward head positioning. Activities Self-Care/Home Management Activities Issued and reviewed HEP: Sitting: Lumbar ext to improve posture & Cervical extension (chin tuck) f/b Rotation. PT-OP-T Assessment and Plan Start: 05/15/20 18:10 Freq: Status: Active Protocol: Document 05/16/20 11:25 LRN (Rec: 05/16/20 12:34 LRN [id number]) Physical Therapy Assessment Rehab Potential Rehabilitation Potential Fair Evaluation Complexity Number of Personal Factors/Comorbidities 3 or More Number of Body Systems Impaired 3 Clinical Presentation at Evaluation Evolving Impairments Impairments Activity Tolerance,Posture,ROM ,Soft Tissue Mobility,Strength Other Impairments Not able to hold head up due to neck & bilateral shoulder pain. Goals Four Impairment Poor sitting posture Short Term Goal (STG) Pt will be educated in improved head/shoulder posturing mechanics for sitting while at resting and when in bed at nighttime. STG Duration 06/02/20 Three Impairment Neck pain interrupts sleep ( wakes up 2x/night) and limits activity. Short Term Goal (STG) Decrease number of times pt wakes at night due to neck pain to no greater than 2x/ night. 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 LTG Duration 08/14/20 Two Impairment Decreased neck active ROM (rot 10 deg's right, 20 deg's left ) Short Term Goal (STG) Improve sitting posture and neck position to decrease resting forward flexion posturing of the head from 53 deg's flex to no greater than 30 deg's flexion and with pt able to hold head up to look forward without pain. STG Duration 06/30/20 Recruitment Consultant Goal (LTG) Pt will be able to improve painfree active cervical rotation not less than 45 deg' s bilaterally with pt goal to turn head enough to drive a car. LTG Duration 08/14/20 One Impairment Pt lacks an appropropriate self care HEP. Residential Goal (LTG) Pt will be educated in a self care HEP of ROM and strengthening exercises of the neck and shoulders for independent self care. LTG Duration 08/14/20 Assessment Summary Assessment Pt presents with a mechanical dysfunction of cervical spine and soft tissue dysfunction of the neck and shoulders from prolonged forward head posturing. The pt is not able to tolerate passive possitioning of his head on shoulders in neutral due to pain. He is able to rotate left > right and appears to be stuck in flexion on the left cervical facets (approximate level of C3-C5). Pt does not tolerate supine positioning; therefore assessment of his cervical spine is challenging. Further assessment of vertebral artery and assessment/treatment of facet joint motion mobility will be attempted in sidelie at the next visit. The pt will benefit from skilled physical therapy to improve soft tissue mobility, joint mechanics of the cervical spine and his sitting posture to reduce the stress at his neck from his forward head posturing. Physical Therapy Plan Frequency and Duration Frequency of Treatment 2x/Week Plan of Care Start Date 05/16/20 Plan of Care End Date 08/14/20 Therapeutic Interventions Therapeutic Interventions Home Exercise Program,Joint Mobilizations,Manual Therapy, Neuromuscular Re-education, Patient/Caregiver Education, Self-Care/Home Management,Soft Tissue Mobilization, Therapeutic Activities, Therapeutic Exercises Modalities Cold Pack/Ice Massage,Hot Packs Next Visit Focus/Plan Next Note Type Treatment Note Next Visit Plan Monitor closely for signs of cardiac distress during therapy. Review HEP issued; vertebral artery check; in sidelie: manual STM, joint mob of C/S via active ROM, manual cervical traction and assisted cervical ROM (ext, rotation). Ther ex to improve posture (including pec stretch and shoulder ER).
--- NOTE | 2020-05-16 17:30 | PT.OPPOC ---
Physical, Occupational & Speech Therapy At [facility] Current Diagnoses Spondylolisthesis, cervical region (05/16/20) Spondylosis without myelopathy or radiculopathy, cervical region (05/16/20) Other specified dorsopathies, cervical region (05/16/20) Radiculopathy, cervical region (05/16/20) Visit Care Team Role Provider Type Ashwin Shepherd DO Family Provider Physician Primary Care Provider Specialty: Family Practice Address: [address] [place] [address], [facility] Email: [email or web address] Sathya Terry DO Attending Provider Non-Staff Referring Provider Specialty: Medical Address: [address] [place] [address], [id number] Email: Plan Of Care PT-OP-T Assessment and Plan Start: 05/15/20 18:10 Freq: Status: Active Protocol: Document 05/16/20 11:25 LRN (Rec: 05/16/20 12:34 LRN [id number]) Physical Therapy Assessment Rehab Potential Rehabilitation Potential Fair Evaluation Complexity Number of Personal Factors/Comorbidities 3 or More Number of Body Systems Impaired 3 Clinical Presentation at Evaluation Evolving Impairments Impairments Activity Tolerance,Posture,ROM ,Soft Tissue Mobility,Strength Other Impairments Not able to hold head up due to neck & bilateral shoulder pain. Goals Four Impairment Poor sitting posture Short Term Goal (STG) Pt will be educated in improved head/shoulder posturing mechanics for sitting while at resting and when in bed at nighttime. STG Duration 06/02/20 Three Impairment Neck pain interrupts sleep ( wakes up 2x/night) and limits activity. Short Term Goal (STG) Decrease number of times pt wakes at night due to neck pain to no greater than 2x/ night. STG Duration 06/30/20 Half-Way Goal (LTG) Pt will be able to tolerate making of bread. LTG Duration 08/14/20 Two Impairment Decreased neck active ROM (rot 10 deg's right, 20 deg's left ) Short Term Goal (STG) Improve sitting posture and neck position to decrease resting forward flexion posturing of the head from 53 deg's flex to no greater than 30 deg's flexion and with pt able to hold head up to look forward without pain. STG Duration 06/30/20 Half-Way Goal (LTG) Pt will be able to improve painfree active cervical rotation not less than 45 deg' s bilaterally with pt goal to turn head enough to drive a car. LTG Duration 08/14/20 One Impairment Pt lacks an appropropriate self care HEP. Half-Way Goal (LTG) Pt will be educated in a self care HEP of ROM and strengthening exercises of the neck and shoulders for independent self care. LTG Duration 08/14/20 Assessment Summary Assessment Pt presents with a mechanical dysfunction of cervical spine and soft tissue dysfunction of the neck and shoulders from prolonged forward head posturing. The pt is not able to tolerate passive possitioning of his head on shoulders in neutral due to pain. He is able to rotate left > right and appears to be stuck in flexion on the left cervical facets (approximate level of C3-C5). Pt does not tolerate supine positioning; therefore assessment of his cervical spine is challenging. Further assessment of vertebral artery and assessment/treatment of facet joint motion mobility will be attempted in sidelie at the next visit. The pt will benefit from skilled physical therapy to improve soft tissue mobility, joint mechanics of the cervical spine and his sitting posture to reduce the stress at his neck from his forward head posturing. Physical Therapy Plan Frequency and Duration Frequency of Treatment 2x/Week Plan of Care Start Date 05/16/20 Plan of Care End Date 08/14/20 Therapeutic Interventions Therapeutic Interventions Home Exercise Program,Joint Mobilizations,Manual Therapy, Neuromuscular Re-education, Patient/Caregiver Education, Self-Care/Home Management,Soft Tissue Mobilization, Therapeutic Activities, Therapeutic Exercises Modalities Cold Pack/Ice Massage,Hot Packs Next Visit Focus/Plan Next Note Type Treatment Note Next Visit Plan Monitor closely for signs of cardiac distress during therapy. Review HEP issued; vertebral artery check; in sidelie: manual STM, joint mob of C/S via active ROM, manual cervical traction and assisted cervical ROM (ext, rotation). Ther ex to improve posture (including pec stretch and shoulder ER). Plan of Care Dates Plan of Care Start Date 05/16/20 Plan of Care End Date 08/14/20 Electronically Signed by: Tierney Bowling, PT 05/18/20 [id number] Please Sign and Return: I have reviewed this Plan of Care and certify that the skilled therapy services above are required to meet the patient?s needs. Physician Signature Date Printed Name and Credentials Clinical Instructor Signature Printed Name and Credentials
--- NOTE | 2020-05-26 17:03 | PT.OTN ---
Current Diagnoses Spondylolisthesis, cervical region (05/26/20) Spondylosis without myelopathy or radiculopathy, cervical region (05/26/20) Other specified dorsopathies, cervical region (05/26/20) Radiculopathy, cervical region (05/26/20) Physical Therapy Treatment Note PT-OP-A Visit Information Start: 05/15/20 18:10 Freq: Status: Active Protocol: Document 05/26/20 10:40 LRN (Rec: 05/26/20 11:21 LRN [id number]) Out-Patient Physical Therapy Visit Information Visit Information Visit Type Treatment Note Visit Start Time 10:40 Visit Stop Time 11:21 Total Visit Minutes 41 Visit Number 2 Evaluation Information Evaluation Date 05/16/20 Precautions Precautions Lung CA that is malignant, COPD on 2L O2 via nasal cannula, A. Fib, HTN, history of heart failure ( systolic) with preserved ejection fraction, LE neuropathy, foot pain, bilateral shoulder pain, hearing deficit. PT-OP-B Current Condition Start: 05/15/20 18:10 Freq: Status: Active Protocol: Document 05/16/20 11:25 LRN (Rec: 05/16/20 12:34 LRN [id number]) Current Condition History of Current Condition Onset Date 3 months ago Current Complaints Can't turn head or up/down History of Current Condition Insidious onset. Not ever had before. Prior Treatments and Tests Xray & MRI @ [facility] ER last night due to high Potasium level and kidney function not good. Developmental History Developmental History None Treatment Goals Patient/Caregiver Goals Pt goal is to be able to turn the neck to see sideways to drive (last drove 9 months ago ). Sometimes wakes him up at night (2x/night). 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 Current Functional Impairments (Reported) Functional Limitations- ADL's Wakes him up 2x/night . Not able to drive because can' t turn head. 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 Personal Factors Other Personal Factors That May Effect Lung CA that is malignant, Therapy/Recovery Heart Failure, A fib, Cirrhosis, COPD on 2L O2 since 07/2019 via nasal canula, foot pain, HTN, LE neuropathy, shoulder pain, neck pain. PT-OP-C Subjective Start: 05/15/20 18:10 Freq: Status: Active Protocol: Document 05/26/20 10:40 LRN (Rec: 05/26/20 11:21 LRN [id number]) OP-PT Subjective Patient Comments Patient Comments States to hold his head up it is uncomfortable in the upper back, not pain. No change PT-OP-H Neuro Start: 05/15/20 18:10 Freq: Status: Active Protocol: Document 05/16/20 11:25 LRN (Rec: 05/16/20 12:34 LRN [id number]) Sensation Evaluation Gross Sensation Gross Sensation Right UE Impaired Sensation Description Tingling Comments Summary Comments R hand tingling. PT-OP-J Posture/Palpation/Skin Start: 05/15/20 18:10 Freq: Status: Active Protocol: Document 05/16/20 11:25 LRN (Rec: 05/16/20 12:34 LRN [id number]) Posture Evaluation Position Sitting Head/C-Spine Posture Forward Head T-Spine Posture Increased Kyphosis Shoulder Posture (L) Rounded,(R) Rounded,(L) Forward,(R) Forward Pelvis Posture Posterior Tilted Palpation Assessment Location Horace Upper trapezius Palpation Location Base of neck Palpation Findings Soft Tissue Tightness, Tenderness Neck Palpation Location Cervical paraspinals Palpation Findings Soft Tissue Tightness, Tenderness PT-OP-K Range of Motion Start: 05/15/20 18:10 Freq: Status: Active Protocol: Document 05/16/20 11:25 LRN (Rec: 05/16/20 12:34 LRN [id number]) Cervical Spine Range of Motion Cervical Spine Active Degrees Testing Position Sitting Flexion 53 Rotation Left 20 Rotation Right 10 ROM Limitations Pain Shoulder Goniometric Range of Motion Shoulder Right Active Testing Position Sitting Flexion 120 Abduction 175 Comments AB is within scapular plane Left Active Testing Position Sitting Flexion 120 Abduction 170 Comments AB is within scapular plane PT-OP-L Special Tests Start: 05/15/20 18:10 Freq: Status: Active Protocol: Document 05/26/20 10:40 LRN (Rec: 05/26/20 11:21 LRN [id number]) Special Tests Cervical Spine Special Tests Vertebral Artery Test Results negative when checked in sitting. PT-OP-M Strength Start: 05/15/20 18:10 Freq: Status: Active Protocol: Document 05/16/20 11:25 LRN (Rec: 05/16/20 12:34 LRN [id number]) Cervical Spine Strength Cervical Spine Manual Muscle Testing Testing Position Sitting Flexion (C1-2) 3 Fair Extension 3- Fair- Shoulder Strength Shoulder Manual Muscle Testing Right Flexion 5 Normal Abduction (C5) 5 Normal External Rotation 3 Fair Internal Rotation 5 Normal Left Flexion 5 Normal Abduction (C5) 5 Normal External Rotation 3 Fair Internal Rotation 5 Normal PT-OP-Q Treatments Start: 05/15/20 18:10 Freq: Status: Active Protocol: Document 05/26/20 10:40 LRN (Rec: 05/26/20 11:21 LRN [id number]) Therapeutic Exercises Sidelying Exercises Scapular pinches Sidelying Exercise Name Scapular pinches Side bilateral Reps/Minutes 15' Comments Extra time for training Neck Ext Sidelying Exercise Name Neck Ext assist into start position f/b Geovanni ext into grtr head retraction Comments Starting head position: 20 deg 's flex; ending 15 deg's flex Sitting Exercises Active C. rot Sitting Exercise Name Chin Tuck, Lumbar ext, Active S. rotation stretch Side bilateral Reps/Minutes 10 hold x 6 Comments Extra time for review Manual Therapy Treatment Joint Mobilizations Thoracic Spine Joint Upper thoracic spine Direction PA Grade II Body Position Sidelying Reps/Duration 8' Self-Care/Home Management Treatment Education Patient Education Home Exercise Program Other Education Educated pt in improved head/ shoulder positioning in sitting & sidelie. Activities Self-Care/Home Management Activities Issued & reviewed HEP: Head Retraction and Scapular Pinches. PT-OP-T Assessment and Plan Start: 05/15/20 18:10 Freq: Status: Active Protocol: Document 05/26/20 10:40 LRN (Rec: 05/26/20 11:21 LRN [id number]) Physical Therapy Assessment Goals Four Impairment Poor sitting posture Short Term Goal (STG) Pt will be educated in improved head/shoulder posturing mechanics for sitting while at resting and when in bed at nighttime. (05/26/20: Discussed) STG Duration 06/02/20 (05/26/20: Discussed) Three Impairment Neck pain interrupts sleep ( wakes up 2x/night) and limits activity. Short Term Goal (STG) Decrease number of times pt wakes at night due to neck pain to no greater than 2x/ night. 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 LTG Duration 08/14/20 Two Impairment Decreased neck active ROM (rot 10 deg's right, 20 deg's left ) Short Term Goal (STG) Improve sitting posture and neck position to decrease resting forward flexion posturing of the head from 53 deg's flex to no greater than 30 deg's flexion and with pt able to hold head up to look forward without pain. STG Duration 06/30/20 Fdc Goal (LTG) Pt will be able to improve painfree active cervical rotation not less than 45 deg' s bilaterally with pt goal to turn head enough to drive a car. LTG Duration 08/14/20 One Impairment Pt lacks an appropropriate self care HEP. Visual Education Director Goal (LTG) Pt will be educated in a self care HEP of ROM and strengthening exercises of the neck and shoulders for independent self care. LTG Duration 08/14/20 Progress Towards Goals Progress Comments Progressed pt education in proper head/neck posturing. Posture improved in sidelie from 20 deg's neck flex to 15 deg's flex after ex. Assessment Summary Assessment Pt is very weak in his neck extensors but was able to improve his head/neck positioning with isometric neck ext ex in sidelie. Pt needs much encouragement. Physical Therapy Plan Frequency and Duration Frequency of Treatment 2x/Week Plan of Care Start Date 05/16/20 Plan of Care End Date 08/14/20 Next Visit Focus/Plan Next Note Type Treatment Note Next Visit Plan Monitor closely for signs of cardiac distress during therapy. Sidelie: manual STM, joint mob of C/S via active ROM, ? manual cervical traction and assisted cervical ROM (ext, rotation). Ther ex to improve posture (including pec stretch and shoulder ER). Progress towards sitting ex when neck and upper thoracic extensors are stronger.
--- NOTE | 2020-05-29 13:48 | PT.OTN ---
Current Diagnoses Spondylolisthesis, cervical region (05/29/20) Spondylosis without myelopathy or radiculopathy, cervical region (05/29/20) Other specified dorsopathies, cervical region (05/29/20) Radiculopathy, cervical region (05/29/20) Physical Therapy Treatment Note PT-OP-A Visit Information Start: 05/15/20 18:10 Freq: Status: Active Protocol: Document 05/29/20 13:04 SP (Rec: 05/29/20 14:09 SP [id number]) Out-Patient Physical Therapy Visit Information Visit Information Visit Type Treatment Note Visit Note vitals taken pre tx: BP 132/58 MANAGER REVENUE, 128/76 SPTA Liss HR 77, 91% on 2 L- Left 5th digit (difficulty SaO2 reading due to cold hands) Visit Start Time 13:04 Visit Stop Time 13:48 Total Visit Minutes 44 Visit Number 3 Number of MANAGER REVENUE Visits 1 PT-OP-B Current Condition Start: 05/15/20 18:10 Freq: Status: Active Protocol: Document 05/16/20 11:25 LRN (Rec: 05/16/20 12:34 LRN [id number]) Current Condition History of Current Condition Onset Date 3 months ago Current Complaints Can't turn head or up/down History of Current Condition Insidious onset. Not ever had before. Prior Treatments and Tests Xray & MRI @ [facility] ER last night due to high Potasium level and kidney function not good. Developmental History Developmental History None Treatment Goals Patient/Caregiver Goals Pt goal is to be able to turn the neck to see sideways to drive (last drove 9 months ago ). Sometimes wakes him up at night (2x/night). 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 Current Functional Impairments (Reported) Functional Limitations- ADL's Wakes him up 2x/night . Not able to drive because can' t turn head. 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 Personal Factors Other Personal Factors That May Effect Lung CA that is malignant, Therapy/Recovery Heart Failure, A fib, Cirrhosis, COPD on 2L O2 since 07/2019 via nasal canula, foot pain, HTN, LE neuropathy, shoulder pain, neck pain. PT-OP-C Subjective Start: 05/15/20 18:10 Freq: Status: Active Protocol: Document 05/29/20 13:04 SP (Rec: 05/29/20 14:09 SP [id number]) OP-PT Subjective Patient Comments Patient Comments Noted R 1-5 digits light purplish in color, cold. Pt reported is having neck and LBP, compliant with his exercises given last tx but wondering if extension was to much this am? Want to reveiw. Patient Reported Progress Same PT-OP-H Neuro Start: 05/15/20 18:10 Freq: Status: Active Protocol: Document 05/16/20 11:25 LRN (Rec: 05/16/20 12:34 LRN [id number]) Sensation Evaluation Gross Sensation Gross Sensation Right UE Impaired Sensation Description Tingling Comments Summary Comments R hand tingling. PT-OP-J Posture/Palpation/Skin Start: 05/15/20 18:10 Freq: Status: Active Protocol: Document 05/16/20 11:25 LRN (Rec: 05/16/20 12:34 LRN [id number]) Posture Evaluation Position Sitting Head/C-Spine Posture Forward Head T-Spine Posture Increased Kyphosis Shoulder Posture (L) Rounded,(R) Rounded,(L) Forward,(R) Forward Pelvis Posture Posterior Tilted Palpation Assessment Location Horace Upper trapezius Palpation Location Base of neck Palpation Findings Soft Tissue Tightness, Tenderness Neck Palpation Location Cervical paraspinals Palpation Findings Soft Tissue Tightness, Tenderness PT-OP-K Range of Motion Start: 05/15/20 18:10 Freq: Status: Active Protocol: Document 05/16/20 11:25 LRN (Rec: 05/16/20 12:34 LRN [id number]) Cervical Spine Range of Motion Cervical Spine Active Degrees Testing Position Sitting Flexion 53 Rotation Left 20 Rotation Right 10 ROM Limitations Pain Shoulder Goniometric Range of Motion Shoulder Right Active Testing Position Sitting Flexion 120 Abduction 175 Comments AB is within scapular plane Left Active Testing Position Sitting Flexion 120 Abduction 170 Comments AB is within scapular plane PT-OP-L Special Tests Start: 05/15/20 18:10 Freq: Status: Active Protocol: Document 05/26/20 10:40 LRN (Rec: 05/26/20 11:21 LRN [id number]) Special Tests Cervical Spine Special Tests Vertebral Artery Test Results negative when checked in sitting. PT-OP-M Strength Start: 05/15/20 18:10 Freq: Status: Active Protocol: Document 05/16/20 11:25 LRN (Rec: 05/16/20 12:34 LRN [id number]) Cervical Spine Strength Cervical Spine Manual Muscle Testing Testing Position Sitting Flexion (C1-2) 3 Fair Extension 3- Fair- Shoulder Strength Shoulder Manual Muscle Testing Right Flexion 5 Normal Abduction (C5) 5 Normal External Rotation 3 Fair Internal Rotation 5 Normal Left Flexion 5 Normal Abduction (C5) 5 Normal External Rotation 3 Fair Internal Rotation 5 Normal PT-OP-Q Treatments Start: 05/15/20 18:10 Freq: Status: Active Protocol: Document 05/29/20 13:04 SP (Rec: 05/29/20 14:09 SP [id number]) Therapeutic Exercises Sitting Exercises cervical rotation Side bilateral Resistance AROM Reps/Minutes 5 sec hold x5 Comments cued TA awareness to decrease LS discomfort ext CS ext chin tuck Equipment Used towel roll LS Reps/Minutes 5 sec x5 Comments cued TA facilitation seated posture Sitting Exercise Name HEP review Equipment Used towel roll LS Reps/Minutes 5 sec x5 Comments cued chest lift w/ TA facilitation Active C. rot Sitting Exercise Name Chin Tuck, Lumbar ext, Active S. rotation stretch Side bilateral Reps/Minutes 10 hold x 6 Comments Extra time for review Other Exercises ES, Middle trap racq ball roll wall Side bilateral Equipment Used racquetball in sock for self application on back over shld Reps/Minutes 1 min Comments cued time to tolerance Manual Therapy Treatment Soft Tissue Mobilization LS ES, paraspinals Body Location B Mobilization Type Rolling,Strumming Intensity/Depth Moderate Body Position Sitting Comments leaning on arms, facing table. UT, lev scap, suboccipitals Body Location B Mobilization Type Rolling,Strumming Intensity/Depth Moderate Body Position Sitting Comments Support at forhead for relaxation (therapist stance behind) PT-OP-T Assessment and Plan Start: 05/15/20 18:10 Freq: Status: Active Protocol: Document 05/29/20 13:04 SP (Rec: 05/29/20 14:09 SP [id number]) Physical Therapy Assessment Goals Four Impairment Poor sitting posture Short Term Goal (STG) Pt will be educated in improved head/shoulder posturing mechanics for sitting while at resting and when in bed at nighttime. (05/26/20: Discussed) STG Duration 06/02/20 (05/26/20: Discussed) Three Impairment Neck pain interrupts sleep ( wakes up 2x/night) and limits activity. Short Term Goal (STG) Decrease number of times pt wakes at night due to neck pain to no greater than 2x/ night. STG Duration 06/30/20 Java Developer Goal (LTG) Pt will be able to tolerate making of bread. LTG Duration 08/14/20 Two Impairment Decreased neck active ROM (rot 10 deg's right, 20 deg's left ) Short Term Goal (STG) Improve sitting posture and neck position to decrease resting forward flexion posturing of the head from 53 deg's flex to no greater than 30 deg's flexion and with pt able to hold head up to look forward without pain. STG Duration 06/30/20 Java Developer Goal (LTG) Pt will be able to improve painfree active cervical rotation not less than 45 deg' s bilaterally with pt goal to turn head enough to drive a car. LTG Duration 08/14/20 One Impairment Pt lacks an appropropriate self care HEP. Nursing Home Goal (LTG) Pt will be educated in a self care HEP of ROM and strengthening exercises of the neck and shoulders for independent self care. LTG Duration 08/14/20 Assessment Summary Assessment Pt tolerated tx well. HEP review seated with cuing for towel roll at LS to allow for natural arch and feedback for TA facilitation during scap retract/CS ext and CS rotation with improved decreased LS irritation. Initated manual CS / LS mm with education on self ball at wall with decreased LS mm tightness responded at end of tx. See vitals taken pre tx, noted audible breathing during tx, no concerns. Physical Therapy Plan Frequency and Duration Frequency of Treatment 2x/Week Plan of Care Start Date 05/16/20 Plan of Care End Date 08/14/20 Therapeutic Interventions Therapeutic Interventions Home Exercise Program,Joint Mobilizations,Manual Therapy, Neuromuscular Re-education, Patient/Caregiver Education, Self-Care/Home Management,Soft Tissue Mobilization, Therapeutic Activities, Therapeutic Exercises Modalities Cold Pack/Ice Massage,Hot Packs Next Visit Focus/Plan Next Note Type Treatment Note Next Visit Plan Assess response to manual and added ball wall self STMs, HEP review in sitting only last tx. Continue per PT POC: Monitor closely for signs of cardiac distress during therapy. Sidelie: manual STM, joint mob of C/S via active ROM, ? manual cervical traction and assisted cervical ROM (ext, rotation). Ther ex to improve posture (including pec stretch and shoulder ER). Progress towards sitting ex when neck and upper thoracic extensors are stronger.
--- NOTE | 2020-06-01 16:42 | PT.OTN ---
Current Diagnoses Spondylolisthesis, cervical region (06/01/20) Spondylosis without myelopathy or radiculopathy, cervical region (06/01/20) Other specified dorsopathies, cervical region (06/01/20) Radiculopathy, cervical region (06/01/20) Physical Therapy Treatment Note PT-OP-A Visit Information Start: 05/15/20 18:10 Freq: Status: Active Protocol: Document 06/01/20 13:31 LRN (Rec: 06/01/20 14:20 LRN [id number]) Out-Patient Physical Therapy Visit Information Visit Information Visit Type Treatment Note Visit Start Time 13:31 Visit Stop Time 14:14 Total Visit Minutes 43 Visit Number 4 Evaluation Information Evaluation Date 05/16/20 Precautions Precautions Lung CA that is malignant, COPD on 2L O2 via nasal cannula, A. Fib, HTN, history of heart failure ( systolic) with preserved ejection fraction, LE neuropathy, foot pain, bilateral shoulder pain, hearing deficit. PT-OP-B Current Condition Start: 05/15/20 18:10 Freq: Status: Active Protocol: Document 05/16/20 11:25 LRN (Rec: 05/16/20 12:34 LRN [id number]) Current Condition History of Current Condition Onset Date 3 months ago Current Complaints Can't turn head or up/down History of Current Condition Insidious onset. Not ever had before. Prior Treatments and Tests Xray & MRI @ [facility] ER last night due to high Potasium level and kidney function not good. Developmental History Developmental History None Treatment Goals Patient/Caregiver Goals Pt goal is to be able to turn the neck to see sideways to drive (last drove 9 months ago ). Sometimes wakes him up at night (2x/night). 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 Current Functional Impairments (Reported) Functional Limitations- ADL's Wakes him up 2x/night . Not able to drive because can' t turn head. 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 Personal Factors Other Personal Factors That May Effect Lung CA that is malignant, Therapy/Recovery Heart Failure, A fib, Cirrhosis, COPD on 2L O2 since 07/2019 via nasal canula, foot pain, HTN, LE neuropathy, shoulder pain, neck pain. PT-OP-C Subjective Start: 05/15/20 18:10 Freq: Status: Active Protocol: Document 06/01/20 13:31 LRN (Rec: 06/01/20 14:20 LRN [id number]) OP-PT Subjective Patient Comments Patient Comments Doing neck ext 10x, 3x/day. States he doesn't have pain when looking straight ahead. States he is having less pain. Pain primarily rotating. OP-PT Pain Assessment Pain Assessment Grid Paper Pain Assessment Grid Completed No Location Shoulders Pain Location Details Shoulders Intensity 1 PT-OP-H Neuro Start: 05/15/20 18:10 Freq: Status: Active Protocol: Document 05/16/20 11:25 LRN (Rec: 05/16/20 12:34 LRN [id number]) Sensation Evaluation Gross Sensation Gross Sensation Right UE Impaired Sensation Description Tingling Comments Summary Comments R hand tingling. PT-OP-J Posture/Palpation/Skin Start: 05/15/20 18:10 Freq: Status: Active Protocol: Document 05/16/20 11:25 LRN (Rec: 05/16/20 12:34 LRN [id number]) Posture Evaluation Position Sitting Head/C-Spine Posture Forward Head T-Spine Posture Increased Kyphosis Shoulder Posture (L) Rounded,(R) Rounded,(L) Forward,(R) Forward Pelvis Posture Posterior Tilted Palpation Assessment Location Horace Upper trapezius Palpation Location Base of neck Palpation Findings Soft Tissue Tightness, Tenderness Neck Palpation Location Cervical paraspinals Palpation Findings Soft Tissue Tightness, Tenderness PT-OP-K Range of Motion Start: 05/15/20 18:10 Freq: Status: Active Protocol: Document 06/01/20 13:31 LRN (Rec: 06/01/20 14:20 LRN [id number]) Cervical Spine Range of Motion Cervical Spine Active Degrees Testing Position Sitting Extension 0 Rotation Left 24 Rotation Right 18 Comments Starting head position is 18 degs flexion. PT-OP-L Special Tests Start: 05/15/20 18:10 Freq: Status: Active Protocol: Document 05/26/20 10:40 LRN (Rec: 05/26/20 11:21 LRN [id number]) Special Tests Cervical Spine Special Tests Vertebral Artery Test Results negative when checked in sitting. PT-OP-M Strength Start: 05/15/20 18:10 Freq: Status: Active Protocol: Document 05/16/20 11:25 LRN (Rec: 05/16/20 12:34 LRN [id number]) Cervical Spine Strength Cervical Spine Manual Muscle Testing Testing Position Sitting Flexion (C1-2) 3 Fair Extension 3- Fair- Shoulder Strength Shoulder Manual Muscle Testing Right Flexion 5 Normal Abduction (C5) 5 Normal External Rotation 3 Fair Internal Rotation 5 Normal Left Flexion 5 Normal Abduction (C5) 5 Normal External Rotation 3 Fair Internal Rotation 5 Normal PT-OP-Q Treatments Start: 05/15/20 18:10 Freq: Status: Active Protocol: Document 06/01/20 13:31 LRN (Rec: 06/01/20 14:20 LRN [id number]) Therapeutic Exercises Sitting Exercises Scapular Pinches Sitting Exercise Name Scapular Pinches Side bilateral Equipment Used 1/2 roll down spine & 1/2 roll supporting low back Reps/Minutes 10 hold x 8 Comments Discussed proper posturing Lumbar ext Sitting Exercise Name Lumbar ext/QL activiation: Hands lifting up on plinth Equipment Used 1/2 roll behind lumbar region to assist with ext Reps/Minutes 10 hold x 8 Comments Extra time for training, discussed proper posturing cervical rotation Side bilateral Resistance AROM Equipment Used rolled towel around neck, 1/2 roll behind L/S Reps/Minutes 10 sec hold x5 Comments v. cuing to push farther with L rotation, discussed proper posturing CS ext chin tuck Equipment Used rolled towel around neck, 1/2 roll behind L/S Comments Educated pt in proper posturing in sitting Active C. rot Sitting Exercise Name Neck ext, Active rotation stretch Side bilateral Equipment Used rolled towel around neck, 1/2 roll behind L/S Reps/Minutes 10 hold x 6 Comments V cuing for proper posturing Manual Therapy Treatment Joint Mobilizations PA Cervical Spine Joint C7-T1, T1-T2 Direction PA Oscillations Grade II Body Position Sitting Comments 7' Cervical Spine Joint L C3-C4 facet Direction Lift & rot Body Position Sitting Reps/Duration 4' PT-OP-T Assessment and Plan Start: 05/15/20 18:10 Freq: Status: Active Protocol: Document 06/01/20 13:31 LRN (Rec: 06/01/20 14:20 LRN [id number]) Physical Therapy Assessment Goals Four Impairment Poor sitting posture Short Term Goal (STG) Pt will be educated in improved head/shoulder posturing mechanics for sitting while at resting and when in bed at nighttime. STG Duration 06/02/20 (06/01/20: MET GOAL) Three Impairment Neck pain interrupts sleep ( wakes up 2x/night) and limits activity. Short Term Goal (STG) Decrease number of times pt wakes at night due to neck pain to no greater than 2x/ night. 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 LTG Duration 08/14/20 Two Impairment Decreased neck active ROM (rot 10 deg's right, 20 deg's left ) Short Term Goal (STG) Improve sitting posture and neck position to decrease resting forward flexion posturing of the head from 53 deg's flex to no greater than 30 deg's flexion and with pt able to hold head up to look forward without pain. STG Duration 06/30/20 (06/01/20: MET GOAL) [employer] Goal (LTG) Pt will be able to improve painfree active cervical rotation not less than 45 deg' s bilaterally with pt goal to turn head enough to drive a car. LTG Duration 08/14/20 One Impairment Pt lacks an appropropriate self care HEP. [facility] Goal (LTG) Pt will be educated in a self care HEP of ROM and strengthening exercises of the neck and shoulders for independent self care. LTG Duration 08/14/20 Progress Towards Goals Progress Comments STG #2 & #4: MET Pt able to hold head for eyes level forward without neck pain. Active cervical ext improved to 0 deg's (starting at 18 deg's flex) from initially unable to tolerate ext with starting position of 53 degs flexion. Rotaion is 24 degs left (was 20 degs), and 18 degs right ( was 10 degs) Assessment Summary Assessment Positive response to therapy. Pt shows improved posture and C. AROM today with less of a head droop to start. Good understanding of HEP. He is able to look straight ahead without neck pain (notable forward head posturing still present). Head rotation R much less than L. Pt has good tolerance with exercise and no problems with ball ex from last session. Physical Therapy Plan Frequency and Duration Frequency of Treatment 2x/Week Plan of Care Start Date 05/16/20 Plan of Care End Date 08/14/20 Next Visit Focus/Plan Next Note Type Treatment Note Next Visit Plan Cont to monitor closely for signs of cardiac distress during therapy. Manual STM, joint mob of C/S via active ROM, ?manual cervical traction and with assisted cervical ROM (ext, rotation). Ther ex to improve posture (including pec stretch and shoulder ER). Progress sitting ex neck, might try using Towel for Isometric neck ext progressing to T-Band if appropriate. Strengthen upper thoracic extensors.
[2020-06-06 12:47] VITALS: O2SAT 70; O2SAT 87
--- NOTE | 2020-06-06 16:57 | PT.OTN ---
Current Diagnoses Spondylolisthesis, cervical region (06/06/20) Spondylosis without myelopathy or radiculopathy, cervical region (06/06/20) Other specified dorsopathies, cervical region (06/06/20) Radiculopathy, cervical region (06/06/20) Physical Therapy Treatment Note PT-OP-A Visit Information Start: 05/15/20 18:10 Freq: Status: Active Protocol: Document 06/06/20 12:47 LRN (Rec: 06/06/20 13:35 LRN [id number]) Out-Patient Physical Therapy Visit Information Visit Information Visit Type Treatment Note Visit Start Time 12:47 Visit Stop Time 13:35 Total Visit Minutes 48 Visit Number 5 Evaluation Information Evaluation Date 05/16/20 Precautions Precautions Lung CA that is malignant, COPD on 2L O2 via nasal cannula, A. Fib, HTN, history of heart failure ( systolic) with preserved ejection fraction, LE neuropathy, foot pain, bilateral shoulder pain, hearing deficit. PT-OP-B Current Condition Start: 05/15/20 18:10 Freq: Status: Active Protocol: Document 05/16/20 11:25 LRN (Rec: 05/16/20 12:34 LRN [id number]) Current Condition History of Current Condition Onset Date 3 months ago Current Complaints Can't turn head or up/down History of Current Condition Insidious onset. Not ever had before. Prior Treatments and Tests Xray & MRI @ [facility] ER last night due to high Potasium level and kidney function not good. Developmental History Developmental History None Treatment Goals Patient/Caregiver Goals Pt goal is to be able to turn the neck to see sideways to drive (last drove 9 months ago ). Sometimes wakes him up at night (2x/night). 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 Current Functional Impairments (Reported) Functional Limitations- ADL's Wakes him up 2x/night . Not able to drive because can' t turn head. 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 Personal Factors Other Personal Factors That May Effect Lung CA that is malignant, Therapy/Recovery Heart Failure, A fib, Cirrhosis, COPD on 2L O2 since 07/2019 via nasal canula, foot pain, HTN, LE neuropathy, shoulder pain, neck pain. PT-OP-C Subjective Start: 05/15/20 18:10 Freq: Status: Active Protocol: Document 06/06/20 12:47 LRN (Rec: 06/06/20 13:35 LRN [id number]) OP-PT Subjective Patient Comments Patient Comments States he is 75% better. PT-OP-H Neuro Start: 05/15/20 18:10 Freq: Status: Active Protocol: Document 06/06/20 12:47 LRN (Rec: 06/06/20 13:35 LRN [id number]) Vital Signs Oxygen Pulse Oximetry at Rest (%) (95-100 %) 87 L Pulse Oximetry with Activity (%) (95-100 70 L %) Oxygen Delivery Method Nasal Cannula Oxygen Flow Rate (LPM) (L/min) 4 Comments Vital Signs Comments SpO2 was 90% at end of therapy . Pt noted no lightheadedness or dizziness. PT-OP-J Posture/Palpation/Skin Start: 05/15/20 18:10 Freq: Status: Active Protocol: Document 05/16/20 11:25 LRN (Rec: 05/16/20 12:34 LRN [id number]) Posture Evaluation Position Sitting Head/C-Spine Posture Forward Head T-Spine Posture Increased Kyphosis Shoulder Posture (L) Rounded,(R) Rounded,(L) Forward,(R) Forward Pelvis Posture Posterior Tilted Palpation Assessment Location Horace Upper trapezius Palpation Location Base of neck Palpation Findings Soft Tissue Tightness, Tenderness Neck Palpation Location Cervical paraspinals Palpation Findings Soft Tissue Tightness, Tenderness PT-OP-K Range of Motion Start: 05/15/20 18:10 Freq: Status: Active Protocol: Document 06/06/20 12:47 LRN (Rec: 06/06/20 13:35 LRN [id number]) Cervical Spine Range of Motion Cervical Spine Active Degrees Testing Position Sitting Extension 5 Rotation Left 33 Rotation Right 25 Comments Starting position is 15 deg's flexion. Pt is able to lift head to start at neutral head positioning. R rot improved from 19 to 25 deg's after MWM. PT-OP-L Special Tests Start: 05/15/20 18:10 Freq: Status: Active Protocol: Document 05/26/20 10:40 LRN (Rec: 05/26/20 11:21 LRN [id number]) Special Tests Cervical Spine Special Tests Vertebral Artery Test Results negative when checked in sitting. PT-OP-M Strength Start: 05/15/20 18:10 Freq: Status: Active Protocol: Document 05/16/20 11:25 LRN (Rec: 05/16/20 12:34 LRN [id number]) Cervical Spine Strength Cervical Spine Manual Muscle Testing Testing Position Sitting Flexion (C1-2) 3 Fair Extension 3- Fair- Shoulder Strength Shoulder Manual Muscle Testing Right Flexion 5 Normal Abduction (C5) 5 Normal External Rotation 3 Fair Internal Rotation 5 Normal Left Flexion 5 Normal Abduction (C5) 5 Normal External Rotation 3 Fair Internal Rotation 5 Normal PT-OP-Q Treatments Start: 05/15/20 18:10 Freq: Status: Active Protocol: Document 06/06/20 12:47 LRN (Rec: 06/06/20 13:35 LRN [id number]) Therapeutic Exercises Sitting Exercises Cervical Ext Sitting Exercise Name Active C. Ext Reps/Minutes 10x Comments Pt moves slowly and cautiously Scapular Pinches Sitting Exercise Name Scapular Pinches Side bilateral Equipment Used 1/2 roll down spine & ball behind head for neck ext Reps/Minutes 10 hold x 10 Comments Discussed proper posturing, extra time for set up Lumbar ext Sitting Exercise Name Lumbar ext/QL activation Equipment Used 1/2 roll behind lumbar region to assist with ext Reps/Minutes 10 hold x 10 Comments Extra time for proper posturing CS ext chin tuck Sitting Exercise Name Chin tuck without and with TBand Resistance Lev 1 TB Equipment Used rolled towel around neck, 1/2 roll behind L/S Reps/Minutes 9x Comments Extra time to determine proper resistance level of light resistance. Active C. rot Sitting Exercise Name Active rotation stretch Side bilateral Equipment Used rolled towel around neck, 1/2 roll behind L/S Reps/Minutes 10 hold x 6 Comments Physical & V. cuing for proper posturing Self-Care/Home Management Treatment Education Patient Education Home Exercise Program Activities Self-Care/Home Management Activities Issued & reviewed HEP: Chin Tuck without & with TBand ( issued Lev 1 TBand), and neck ext, lumbar ext and sitting with back against a wall for postural retraining. PT-OP-T Assessment and Plan Start: 05/15/20 18:10 Freq: Status: Active Protocol: Document 06/06/20 12:47 LRN (Rec: 06/06/20 13:35 LRN [id number]) Physical Therapy Assessment Goals Four Impairment Poor sitting posture Short Term Goal (STG) Pt will be educated in improved head/shoulder posturing mechanics for sitting while at resting and when in bed at nighttime. STG Duration 06/02/20 (06/01/20: MET GOAL) Three Impairment Neck pain interrupts sleep ( wakes up 2x/night) and limits activity. Short Term Goal (STG) Decrease number of times pt wakes at night due to neck pain to no greater than 2x/ night. 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 LTG Duration 08/14/20 Two Impairment Decreased neck active ROM (rot 10 deg's right, 20 deg's left ) Short Term Goal (STG) Improve sitting posture and neck position to decrease resting forward flexion posturing of the head from 53 deg's flex to no greater than 30 deg's flexion and with pt able to hold head up to look forward without pain. STG Duration 06/30/20 (06/01/20: MET GOAL) Detention Goal (LTG) Pt will be able to improve painfree active cervical rotation not less than 45 deg' s bilaterally with pt goal to turn head enough to drive a car. LTG Duration 08/14/20 One Impairment Pt lacks an appropropriate self care HEP. [employer] Goal (LTG) Pt will be educated in a self care HEP of ROM and strengthening exercises of the neck and shoulders for independent self care. LTG Duration 08/14/20 (06/06/20: Progressing) Progress Towards Goals Progress Comments Active Cervical R rot improved from 19 to 25 deg's after MWM . Pt feels 75% improved in neck pain. Assessment Summary Assessment Pt was low SpO2 to start and needed extra time with exercises due to poor oxygen saturation. Pt was able to regain to 90% by end of therapy. Pt sitting posture improved, he slumps mildly and is able to hold his head with eyes at eye level without neck pain. Use of towel roll under chin at rest has been helpful to keep pt head from slumping foward. Pt might be able to tolerate low level ex to improve neck/shoulder strength for better head posturing at rest. Physical Therapy Plan Frequency and Duration Frequency of Treatment 2x/Week Plan of Care Start Date 05/16/20 Plan of Care End Date 08/14/20 Next Visit Focus/Plan Next Note Type Treatment Note Next Visit Plan Cont to monitor closely for signs of cardiac distress during therapy (SpO2). Add low level scapular, lumbar /cervical paraspinal ext exercises (ex to improve posture including pec stretch and shoulder ER). Manual STM, joint mob of C/S via active ROM, ?manual cervical traction and with assisted cervical ROM (ext, rotation). Strengthen upper thoracic extensors.
--- NOTE | 2020-06-09 12:27 | PT.OTN ---
Current Diagnoses Spondylolisthesis, cervical region (06/09/20) Spondylosis without myelopathy or radiculopathy, cervical region (06/09/20) Other specified dorsopathies, cervical region (06/09/20) Radiculopathy, cervical region (06/09/20) Physical Therapy Treatment Note PT-OP-A Visit Information Start: 05/15/20 18:10 Freq: Status: Active Protocol: Document 06/09/20 11:24 LRN (Rec: 06/09/20 12:26 LRN [id number]) Out-Patient Physical Therapy Visit Information Visit Information Visit Type Treatment Note Visit Start Time 11:24 Visit Stop Time 12:04 Total Visit Minutes 40 Visit Number 6 Evaluation Information Evaluation Date 05/16/20 Precautions Precautions Lung CA that is malignant, COPD on 2L O2 via nasal cannula, A. Fib, HTN, history of heart failure ( systolic) with preserved ejection fraction, LE neuropathy, foot pain, bilateral shoulder pain, hearing deficit. PT-OP-B Current Condition Start: 05/15/20 18:10 Freq: Status: Active Protocol: Document 05/16/20 11:25 LRN (Rec: 05/16/20 12:34 LRN [id number]) Current Condition History of Current Condition Onset Date 3 months ago Current Complaints Can't turn head or up/down History of Current Condition Insidious onset. Not ever had before. Prior Treatments and Tests Xray & MRI @ [facility] ER last night due to high Potasium level and kidney function not good. Developmental History Developmental History None Treatment Goals Patient/Caregiver Goals Pt goal is to be able to turn the neck to see sideways to drive (last drove 9 months ago ). Sometimes wakes him up at night (2x/night). 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 Current Functional Impairments (Reported) Functional Limitations- ADL's Wakes him up 2x/night . Not able to drive because can' t turn head. 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 Personal Factors Other Personal Factors That May Effect Lung CA that is malignant, Therapy/Recovery Heart Failure, A fib, Cirrhosis, COPD on 2L O2 since 07/2019 via nasal canula, foot pain, HTN, LE neuropathy, shoulder pain, neck pain. PT-OP-C Subjective Start: 05/15/20 18:10 Freq: Status: Active Protocol: Document 06/09/20 11:24 LRN (Rec: 06/09/20 12:26 LRN [id number]) OP-PT Subjective Patient Comments Patient Comments States he can sleep through the night without neck pain. PT-OP-H Neuro Start: 05/15/20 18:10 Freq: Status: Active Protocol: Document 06/06/20 12:47 LRN (Rec: 06/06/20 13:35 LRN [id number]) Vital Signs Oxygen Pulse Oximetry at Rest (%) (95-100 %) 87 L Pulse Oximetry with Activity (%) (95-100 70 L %) Oxygen Delivery Method Nasal Cannula Oxygen Flow Rate (LPM) (L/min) 4 Comments Vital Signs Comments SpO2 was 90% at end of therapy . Pt noted no lightheadedness or dizziness. PT-OP-J Posture/Palpation/Skin Start: 05/15/20 18:10 Freq: Status: Active Protocol: Document 05/16/20 11:25 LRN (Rec: 05/16/20 12:34 LRN [id number]) Posture Evaluation Position Sitting Head/C-Spine Posture Forward Head T-Spine Posture Increased Kyphosis Shoulder Posture (L) Rounded,(R) Rounded,(L) Forward,(R) Forward Pelvis Posture Posterior Tilted Palpation Assessment Location Horace Upper trapezius Palpation Location Base of neck Palpation Findings Soft Tissue Tightness, Tenderness Neck Palpation Location Cervical paraspinals Palpation Findings Soft Tissue Tightness, Tenderness PT-OP-K Range of Motion Start: 05/15/20 18:10 Freq: Status: Active Protocol: Document 06/06/20 12:47 LRN (Rec: 06/06/20 13:35 LRN [id number]) Cervical Spine Range of Motion Cervical Spine Active Degrees Testing Position Sitting Extension 5 Rotation Left 33 Rotation Right 25 Comments Starting position is 15 deg's flexion. Pt is able to lift head to start at neutral head positioning. R rot improved from 19 to 25 deg's after MWM. PT-OP-L Special Tests Start: 05/15/20 18:10 Freq: Status: Active Protocol: Document 01/08/21 10:40 LRN (Rec: 05/26/20 11:21 LRN [id number]) Special Tests Cervical Spine Special Tests Vertebral Artery Test Results negative when checked in sitting. PT-OP-M Strength Start: 05/15/20 18:10 Freq: Status: Active Protocol: Document 05/16/20 11:25 LRN (Rec: 05/16/20 12:34 LRN [id number]) Cervical Spine Strength Cervical Spine Manual Muscle Testing Testing Position Sitting Flexion (C1-2) 3 Fair Extension 3- Fair- Shoulder Strength Shoulder Manual Muscle Testing Right Flexion 5 Normal Abduction (C5) 5 Normal External Rotation 3 Fair Internal Rotation 5 Normal Left Flexion 5 Normal Abduction (C5) 5 Normal External Rotation 3 Fair Internal Rotation 5 Normal PT-OP-Q Treatments Start: 05/15/20 18:10 Freq: Status: Active Protocol: Document 06/09/20 11:24 LRN (Rec: 06/09/20 12:26 LRN [id number]) Therapeutic Exercises Sitting Exercises Cervical Ext Sitting Exercise Name Resisted C. Ext Equipment Used Manual resist & Lev 1 TBand resist Reps/Minutes 10' Comments Rest btn man & TBand ex. Extra time for training of self ex. Scapular Pinches Sitting Exercise Name Row Side bilateral Resistance Lev 1 TBand Equipment Used 1/2 roll down spine & ball behind head for neck ext Reps/Minutes 10 hold Comments Extra time for cuing for proper posturing Active C. rot Sitting Exercise Name Active rotation stretch Side bilateral Reps/Minutes 3' Comments Physical & V. cuing for proper posturing Manual Therapy Treatment Joint Mobilizations PA Cervical Spine Joint C7-T1, T1-T2 Direction PA Oscillations Grade II Body Position Sitting Comments 7' Cervical Spine Joint MWM: R C3-C4 facet Direction Lift & rot L & R Body Position Sitting Reps/Duration 10' Self-Care/Home Management Treatment Education Patient Education Home Exercise Program Activities Self-Care/Home Management Activities Reviewed Chin tuck with isometric C. Ext using Lev 1 TBand. PT-OP-T Assessment and Plan Start: 05/15/20 18:10 Freq: Status: Active Protocol: Document 06/09/20 11:24 LRN (Rec: 06/09/20 12:26 LRN [id number]) Physical Therapy Assessment Goals Three Impairment Neck pain interrupts sleep ( wakes up 2x/night) and limits activity. Short Term Goal (STG) Decrease number of times pt wakes at night due to neck pain to no greater than 2x/ night. 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 LTG Duration 08/14/20 Two Impairment Decreased neck active ROM (rot 10 deg's right, 20 deg's left ) Short Term Goal (STG) Improve sitting posture and neck position to decrease resting forward flexion posturing of the head from 53 deg's flex to no greater than 30 deg's flexion and with pt able to hold head up to look forward without pain. STG Duration 06/30/20 (06/01/20: MET GOAL) Custodial Goal (LTG) Pt will be able to improve painfree active cervical rotation not less than 45 deg' s bilaterally with pt goal to turn head enough to drive a car. LTG Duration 08/14/20 One Impairment Pt lacks an appropropriate self care HEP. Claim Manager Goal (LTG) Pt will be educated in a self care HEP of ROM and strengthening exercises of the neck and shoulders for independent self care. LTG Duration 08/14/20 (06/06/20: Progressing) Progress Towards Goals Progress Comments Active C. R rot improved from 20 to 30 deg's & L rot improved 25 to 30 deg's after MWM. Goal 3: STG: MET. Assessment Summary Assessment + response to MWM to improve C . AROM. Pt posture when cued much improved. Physical Therapy Plan Frequency and Duration Frequency of Treatment 2x/Week Plan of Care Start Date 05/16/20 Plan of Care End Date 08/14/20 Next Visit Focus/Plan Next Note Type Treatment Note Next Visit Plan Cont to monitor closely for signs of cardiac distress during therapy (SpO2). Add scapular strengthening and issue white strap for HEP; add hip flexor stretch; progress cervical paraspinal ext exercises (ex to improve posture including pec stretch and shoulder ER). MWM C/S; manual cervical traction with Cervical rot/?ext. Strengthen upper thoracic extensors.
--- NOTE | 2020-06-12 11:52 | PT.OTN ---
Current Diagnoses Spondylolisthesis, cervical region (06/12/20) Spondylosis without myelopathy or radiculopathy, cervical region (06/12/20) Other specified dorsopathies, cervical region (06/12/20) Radiculopathy, cervical region (06/12/20) Physical Therapy Treatment Note PT-OP-A Visit Information Start: 05/15/20 18:10 Freq: Status: Active Protocol: Document 06/12/20 10:39 LRN (Rec: 06/12/20 11:21 LRN [id number]) Out-Patient Physical Therapy Visit Information Visit Information Visit Type Treatment Note Visit Start Time 10:39 Visit Stop Time 11:19 Total Visit Minutes 40 Visit Number 7 Evaluation Information Evaluation Date 05/16/20 Precautions Precautions Lung CA that is malignant, COPD on 2L O2 via nasal cannula, A. Fib, HTN, history of heart failure ( systolic) with preserved ejection fraction, LE neuropathy, foot pain, bilateral shoulder pain, hearing deficit. PT-OP-B Current Condition Start: 05/15/20 18:10 Freq: Status: Active Protocol: Document 05/16/20 11:25 LRN (Rec: 05/16/20 12:34 LRN [id number]) Current Condition History of Current Condition Onset Date 3 months ago Current Complaints Can't turn head or up/down History of Current Condition Insidious onset. Not ever had before. Prior Treatments and Tests Xray & MRI @ [facility] ER last night due to high Potasium level and kidney function not good. Developmental History Developmental History None Treatment Goals Patient/Caregiver Goals Pt goal is to be able to turn the neck to see sideways to drive (last drove 9 months ago ). Sometimes wakes him up at night (2x/night). 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 Current Functional Impairments (Reported) Functional Limitations- ADL's Wakes him up 2x/night . Not able to drive because can' t turn head. 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 Personal Factors Other Personal Factors That May Effect Lung CA that is malignant, Therapy/Recovery Heart Failure, A fib, Cirrhosis, COPD on 2L O2 since 07/2019 via nasal canula, foot pain, HTN, LE neuropathy, shoulder pain, neck pain. PT-OP-C Subjective Start: 05/15/20 18:10 Freq: Status: Active Protocol: Document 06/12/20 10:39 LRN (Rec: 06/12/20 11:21 LRN [id number]) OP-PT Subjective Patient Comments Patient Comments States his R side of neck was stiff after last session. PT-OP-H Neuro Start: 05/15/20 18:10 Freq: Status: Active Protocol: Document 06/06/20 12:47 LRN (Rec: 06/06/20 13:35 LRN [id number]) Vital Signs Oxygen Pulse Oximetry at Rest (%) (95-100 %) 87 L Pulse Oximetry with Activity (%) (95-100 70 L %) Oxygen Delivery Method Nasal Cannula Oxygen Flow Rate (LPM) (L/min) 4 Comments Vital Signs Comments SpO2 was 90% at end of therapy . Pt noted no lightheadedness or dizziness. PT-OP-J Posture/Palpation/Skin Start: 05/15/20 18:10 Freq: Status: Active Protocol: Document 05/16/20 11:25 LRN (Rec: 05/16/20 12:34 LRN [id number]) Posture Evaluation Position Sitting Head/C-Spine Posture Forward Head T-Spine Posture Increased Kyphosis Shoulder Posture (L) Rounded,(R) Rounded,(L) Forward,(R) Forward Pelvis Posture Posterior Tilted Palpation Assessment Location Horace Upper trapezius Palpation Location Base of neck Palpation Findings Soft Tissue Tightness, Tenderness Neck Palpation Location Cervical paraspinals Palpation Findings Soft Tissue Tightness, Tenderness PT-OP-K Range of Motion Start: 05/15/20 18:10 Freq: Status: Active Protocol: Document 06/12/20 10:39 LRN (Rec: 06/12/20 11:21 LRN [id number]) Cervical Spine Range of Motion Cervical Spine Active Degrees Testing Position Sitting Extension 13 Rotation Left 50 Rotation Right 30 PT-OP-L Special Tests Start: 05/15/20 18:10 Freq: Status: Active Protocol: Document 05/26/20 10:40 LRN (Rec: 05/26/20 11:21 LRN [id number]) Special Tests Cervical Spine Special Tests Vertebral Artery Test Results negative when checked in sitting. PT-OP-M Strength Start: 05/15/20 18:10 Freq: Status: Active Protocol: Document 05/16/20 11:25 LRN (Rec: 05/16/20 12:34 LRN [id number]) Cervical Spine Strength Cervical Spine Manual Muscle Testing Testing Position Sitting Flexion (C1-2) 3 Fair Extension 3- Fair- Shoulder Strength Shoulder Manual Muscle Testing Right Flexion 5 Normal Abduction (C5) 5 Normal External Rotation 3 Fair Internal Rotation 5 Normal Left Flexion 5 Normal Abduction (C5) 5 Normal External Rotation 3 Fair Internal Rotation 5 Normal PT-OP-Q Treatments Start: 05/15/20 18:10 Freq: Status: Active Protocol: Document 06/12/20 10:39 LRN (Rec: 06/12/20 11:21 LRN [id number]) Therapeutic Exercises Sitting Exercises Row Sitting Exercise Name Row Side bilateral Resistance Lev 2 & L1 TBand Reps/Minutes 5x Comments Long rest btn to get SpO2 up to 90%, dec to Lev 1 due to SpO2 Cervical Ext Sitting Exercise Name Resisted C. Ext Equipment Used Manual resist & Lev 1 TBand resist Reps/Minutes 10' Comments Rest btn man & TBand ex. Extra time for training of self ex. Scapular Pinches Sitting Exercise Name Scapular pinches Side bilateral Equipment Used 1/2 roll down spine & ball behind head for neck ext Reps/Minutes 10 hold x 10 Comments Discussed proper posturing, extra time for set up cervical rotation Sitting Exercise Name Cervical Active assisted rotation Side right Reps/Minutes 4' Comments Extra time spent with R rotation CS ext chin tuck Sitting Exercise Name Chin tuck without and with TBand Resistance Lev 1 TB Equipment Used rolled towel around neck, 1/2 roll behind L/S Reps/Minutes 9x Comments Extra time to determine proper resistance level of light resistance. Active C. rot Sitting Exercise Name Active rotation stretch Side bilateral Reps/Minutes 8' Comments Physical & V. cuing for proper posturing Manual Therapy Treatment Joint Mobilizations Cervical Spine Joint C2 -C4 for Cervical ext Direction PA Grade II Body Position Sitting Reps/Duration 4' Manual Techniques MWM Type MWM of R C3-C4 facet for head rotation Body Location C3-C4 facet Body Position Sitting Reps/Duration 10' Self-Care/Home Management Treatment Education Patient Education Home Exercise Program Other Education Educated pt in proper and safe progression of HEP with monitoring of SpO2 & discussion of maintaining SpO2 @ 93% between bouts, and limit to 5 reps at a time. Educated pt in use of TBand as to how to increase/decrease resistance for tolerance of exercise. Activities Self-Care/Home Management Activities HEP issued & reviewed: Thoracic ext & resisted shoulder retraction. Issued white strap for HEP. PT-OP-T Assessment and Plan Start: 05/15/20 18:10 Freq: Status: Active Protocol: Document 06/12/20 10:39 LRN (Rec: 06/12/20 11:21 LRN [id number]) Physical Therapy Assessment Goals Three Impairment Neck pain interrupts sleep ( wakes up 2x/night) and limits activity. Short Term Goal (STG) Decrease number of times pt wakes at night due to neck pain to no greater than 2x/ night. 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 LTG Duration 08/14/20 Two Impairment Decreased neck active ROM (rot 10 deg's right, 20 deg's left ) Short Term Goal (STG) Improve sitting posture and neck position to decrease resting forward flexion posturing of the head from 53 deg's flex to no greater than 30 deg's flexion and with pt able to hold head up to look forward without pain. STG Duration 06/30/20 (06/01/20: MET GOAL) Pick And Shovel Worker Goal (LTG) Pt will be able to improve painfree active cervical rotation not less than 45 deg' s bilaterally with pt goal to turn head enough to drive a car. LTG Duration 08/14/20 (06/12/20: Met for L rotation) One Impairment Pt lacks an appropropriate self care HEP. Longterm Goal (LTG) Pt will be educated in a self care HEP of ROM and strengthening exercises of the neck and shoulders for independent self care. LTG Duration 08/14/20 (06/06/20: Progressing) Progress Towards Goals Progress Comments Active C. AROM improved: Ext from 5 to 15 deg's; Rotation L: from 33 to 50 deg's and R: from 25 to 35 deg's. Assessment Summary Assessment Cervical ROM improving. Pt did not need cuing for upright posturing in sitting. Occasional need for cuing throughout therapy. Physical Therapy Plan Frequency and Duration Frequency of Treatment 2x/Week Plan of Care Start Date 05/16/20 Plan of Care End Date 08/14/20 Next Visit Focus/Plan Next Note Type Treatment Note Next Visit Plan Cont to monitor closely for signs of cardiac distress during therapy (SpO2). Progress postural correction exercises (scapular strengthening) as tolerated; add hip flexor stretch; progress cervical paraspinal ext exercises, Standing pec stretch and strengthen upper thoracic extensors. Add sitting active shoulder ER and assess ex tolerance reponse. As needed: ROSEMARY C/S.
--- NOTE | 2020-06-16 12:31 | PT.OTN ---
Current Diagnoses Spondylolisthesis, cervical region (06/16/20) Spondylosis without myelopathy or radiculopathy, cervical region (06/16/20) Other specified dorsopathies, cervical region (06/16/20) Radiculopathy, cervical region (06/16/20) Physical Therapy Treatment Note PT-OP-A Visit Information Start: 05/15/20 18:10 Freq: Status: Active Protocol: Document 06/16/20 11:29 LRN (Rec: 06/16/20 12:10 LRN [id number]) Out-Patient Physical Therapy Visit Information Visit Information Visit Type Treatment Note Visit Start Time 11:29 Visit Stop Time 12:10 Total Visit Minutes 41 Visit Number 8 Evaluation Information Evaluation Date 05/16/20 Precautions Precautions Lung CA that is malignant, COPD on 2L O2 via nasal cannula, A. Fib, HTN, history of heart failure ( systolic) with preserved ejection fraction, LE neuropathy, foot pain, bilateral shoulder pain, hearing deficit. PT-OP-B Current Condition Start: 05/15/20 18:10 Freq: Status: Active Protocol: Document 05/16/20 11:25 LRN (Rec: 05/16/20 12:34 LRN [id number]) Current Condition History of Current Condition Onset Date 3 months ago Current Complaints Can't turn head or up/down History of Current Condition Insidious onset. Not ever had before. Prior Treatments and Tests Xray & MRI @ [facility] ER last night due to high Potasium level and kidney function not good. Developmental History Developmental History None Treatment Goals Patient/Caregiver Goals Pt goal is to be able to turn the neck to see sideways to drive (last drove 9 months ago ). Sometimes wakes him up at night (2x/night). 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 Current Functional Impairments (Reported) Functional Limitations- ADL's Wakes him up 2x/night . Not able to drive because can' t turn head. 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 Personal Factors Other Personal Factors That May Effect Lung CA that is malignant, Therapy/Recovery Heart Failure, A fib, Cirrhosis, COPD on 2L O2 since 07/2019 via nasal canula, foot pain, HTN, LE neuropathy, shoulder pain, neck pain. PT-OP-C Subjective Start: 05/15/20 18:10 Freq: Status: Active Protocol: Document 06/16/20 11:29 LRN (Rec: 06/16/20 12:10 LRN [id number]) OP-PT Subjective Patient Comments Patient Comments Neck is doing better, easier to hold head up. Yesterday the muscles were sore. PT-OP-H Neuro Start: 05/15/20 18:10 Freq: Status: Active Protocol: Document 06/06/20 12:47 LRN (Rec: 06/06/20 13:35 LRN [id number]) Vital Signs Oxygen Pulse Oximetry at Rest (%) (95-100 %) 87 L Pulse Oximetry with Activity (%) (95-100 70 L %) Oxygen Delivery Method Nasal Cannula Oxygen Flow Rate (LPM) (L/min) 4 Comments Vital Signs Comments SpO2 was 90% at end of therapy . Pt noted no lightheadedness or dizziness. PT-OP-J Posture/Palpation/Skin Start: 05/15/20 18:10 Freq: Status: Active Protocol: Document 05/16/20 11:25 LRN (Rec: 05/16/20 12:34 LRN [id number]) Posture Evaluation Position Sitting Head/C-Spine Posture Forward Head T-Spine Posture Increased Kyphosis Shoulder Posture (L) Rounded,(R) Rounded,(L) Forward,(R) Forward Pelvis Posture Posterior Tilted Palpation Assessment Location Horace Upper trapezius Palpation Location Base of neck Palpation Findings Soft Tissue Tightness, Tenderness Neck Palpation Location Cervical paraspinals Palpation Findings Soft Tissue Tightness, Tenderness PT-OP-K Range of Motion Start: 05/15/20 18:10 Freq: Status: Active Protocol: Document 06/16/20 11:29 LRN (Rec: 06/16/20 12:10 LRN [id number]) Cervical Spine Range of Motion Cervical Spine Active Degrees Testing Position Sitting Extension 20 Rotation Left 30 Rotation Right 30 PT-OP-L Special Tests Start: 05/15/20 18:10 Freq: Status: Active Protocol: Document 05/26/20 10:40 LRN (Rec: 05/26/20 11:21 LRN [id number]) Special Tests Cervical Spine Special Tests Vertebral Artery Test Results negative when checked in sitting. PT-OP-M Strength Start: 05/15/20 18:10 Freq: Status: Active Protocol: Document 05/16/20 11:25 LRN (Rec: 05/16/20 12:34 LRN [id number]) Cervical Spine Strength Cervical Spine Manual Muscle Testing Testing Position Sitting Flexion (C1-2) 3 Fair Extension 3- Fair- Shoulder Strength Shoulder Manual Muscle Testing Right Flexion 5 Normal Abduction (C5) 5 Normal External Rotation 3 Fair Internal Rotation 5 Normal Left Flexion 5 Normal Abduction (C5) 5 Normal External Rotation 3 Fair Internal Rotation 5 Normal PT-OP-Q Treatments Start: 05/15/20 18:10 Freq: Status: Active Protocol: Document 06/16/20 11:29 LRN (Rec: 06/16/20 12:10 LRN [id number]) Therapeutic Exercises Sitting Exercises Isometric Max shoulder flex Sitting Exercise Name Geovanni Max shoulder flex Side bilateral Resistance Manual Reps/Minutes 2' Horace Shoulder ER Sitting Exercise Name Horace Shoulder ER Side bilateral Equipment Used Lev 1 TB Reps/Minutes 10x Comments Rest needed after. Pt I/S to do as HEP Row Sitting Exercise Name Row Side bilateral Resistance Lev 2 & L1 TBand Reps/Minutes 10x Comments Long rest after Cervical Ext Sitting Exercise Name Resisted C. Ext Equipment Used Lev 1 TBand resist Reps/Minutes 10' Comments Rest btn man & TBand ex. Extra time for training of self ex. Scapular Pinches Sitting Exercise Name Scapular pinches Side bilateral Equipment Used 1/2 roll down spine & ball behind head for neck ext Reps/Minutes 10 hold x 10 Comments Discussed proper posturing, extra time for set up cervical rotation Sitting Exercise Name Cervical Active assisted rotation Side right Reps/Minutes 4' Comments Extra time spent with R rotation CS ext chin tuck Sitting Exercise Name Chin tuck with Cervical extension Reps/Minutes 10x Comments ROM to start 7 deg's, to end 20 deg's. Active C. rot Sitting Exercise Name Active rotation stretch Side bilateral Reps/Minutes 6' Comments AROM is 30 deg's bilaterally, Standing Exercises Iliopsoas stretch Standing Exercise Name Runners stretch Side bilateral Reps/Minutes 3' Comments Extra time needed for finding max tolerance of stretch and standing. PT-OP-T Assessment and Plan Start: 05/15/20 18:10 Freq: Status: Active Protocol: Document 06/16/20 11:29 LRN (Rec: 06/16/20 12:10 LRN [id number]) Physical Therapy Assessment Goals Three Impairment Neck pain interrupts sleep ( wakes up 2x/night) and limits activity. Short Term Goal (STG) Decrease number of times pt wakes at night due to neck pain to no greater than 2x/ night. 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 LTG Duration 08/14/20 Two Impairment Decreased neck active ROM (rot 10 deg's right, 20 deg's left ) Short Term Goal (STG) Improve sitting posture and neck position to decrease resting forward flexion posturing of the head from 53 deg's flex to no greater than 30 deg's flexion and with pt able to hold head up to look forward without pain. STG Duration 06/30/20 (06/01/20: MET GOAL) [facility] Goal (LTG) Pt will be able to improve painfree active cervical rotation not less than 45 deg' s bilaterally with pt goal to turn head enough to drive a car. LTG Duration 08/14/20 (06/12/20: Met for L rotation) One Impairment Pt lacks an appropropriate self care HEP. [employer] Goal (LTG) Pt will be educated in a self care HEP of ROM and strengthening exercises of the neck and shoulders for independent self care. LTG Duration 08/14/20 (06/06/20: Progressing) Progress Towards Goals Progress Comments Improved C. rotation mobility with symmetry noted. Assessment Summary Assessment Pt is able to hold his head up for longer periods when at rest from exercises and presents to start with his eyes at neutral position. C/ S rotation is symmetrical but limited to 30 deg's. Physical Therapy Plan Frequency and Duration Frequency of Treatment 2x/Week Plan of Care Start Date 05/16/20 Plan of Care End Date 08/14/20 Next Visit Focus/Plan Next Note Type Treatment Note Next Visit Plan Cont to monitor closely for signs of cardiac distress during therapy (SpO2). Progress shoulder strengthening (for thoracic ext). Review sitting active shoulder ER and assess ex tolerance reponse. Add isometric end-range shoulder flex ex. to HEP. MWM to improve C/S rot. Progress postural correction exercises (scapular strengthening) as tolerated; add hip flexor stretch; progress cervical paraspinal ext exercises, Standing pec stretch and strengthen upper thoracic extensors.
--- NOTE | 2020-06-19 09:44 | PT-OP ANOTE ---
Called to request pt call back to discuss further therapy or to call back to schedule 2x/week for 2 more weeks.
--- NOTE | 2020-06-26 13:08 | PT.OTN ---
Current Diagnoses Spondylolisthesis, cervical region (06/26/20) Spondylosis without myelopathy or radiculopathy, cervical region (06/26/20) Other specified dorsopathies, cervical region (06/26/20) Radiculopathy, cervical region (06/26/20) Physical Therapy Treatment Note PT-OP-A Visit Information Start: 05/15/20 18:10 Freq: Status: Active Protocol: Document 06/26/20 10:36 LRN (Rec: 06/26/20 11:17 LRN [id number]) Out-Patient Physical Therapy Visit Information Visit Information Visit Type Treatment Note Visit Start Time 10:36 Visit Stop Time 11:17 Total Visit Minutes 41 Visit Number 9 Evaluation Information Evaluation Date 05/16/20 Precautions Precautions Lung CA that is malignant, COPD on 2L O2 via nasal cannula, A. Fib, HTN, history of heart failure ( systolic) with preserved ejection fraction, LE neuropathy, foot pain, bilateral shoulder pain, hearing deficit. PT-OP-B Current Condition Start: 05/15/20 18:10 Freq: Status: Active Protocol: Document 05/16/20 11:25 LRN (Rec: 05/16/20 12:34 LRN [id number]) Current Condition History of Current Condition Onset Date 3 months ago Current Complaints Can't turn head or up/down History of Current Condition Insidious onset. Not ever had before. Prior Treatments and Tests Xray & MRI @ [facility] ER last night due to high Potasium level and kidney function not good. Developmental History Developmental History None Treatment Goals Patient/Caregiver Goals Pt goal is to be able to turn the neck to see sideways to drive (last drove 9 months ago ). Sometimes wakes him up at night (2x/night). 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 Current Functional Impairments (Reported) Functional Limitations- ADL's Wakes him up 2x/night . Not able to drive because can' t turn head. 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 Personal Factors Other Personal Factors That May Effect Lung CA that is malignant, Therapy/Recovery Heart Failure, A fib, Cirrhosis, COPD on 2L O2 since 07/2019 via nasal canula, foot pain, HTN, LE neuropathy, shoulder pain, neck pain. PT-OP-C Subjective Start: 05/15/20 18:10 Freq: Status: Active Protocol: Document 06/26/20 10:36 LRN (Rec: 06/26/20 11:17 LRN [id number]) OP-PT Subjective Patient Comments Patient Comments 90% better. Sore in the back of the neck. Has appt Friday and would like a more detailed understanding of the best 4 ex's to maintain current condition. States oxygen levels are okay. PT-OP-H Neuro Start: 05/15/20 18:10 Freq: Status: Active Protocol: Document 06/06/20 12:47 LRN (Rec: 06/06/20 13:35 LRN [id number]) Vital Signs Oxygen Pulse Oximetry at Rest (%) (95-100 %) 87 L Pulse Oximetry with Activity (%) (95-100 70 L %) Oxygen Delivery Method Nasal Cannula Oxygen Flow Rate (LPM) (L/min) 4 Comments Vital Signs Comments SpO2 was 90% at end of therapy . Pt noted no lightheadedness or dizziness. PT-OP-J Posture/Palpation/Skin Start: 05/15/20 18:10 Freq: Status: Active Protocol: Document 05/16/20 11:25 LRN (Rec: 05/16/20 12:34 LRN [id number]) Posture Evaluation Position Sitting Head/C-Spine Posture Forward Head T-Spine Posture Increased Kyphosis Shoulder Posture (L) Rounded,(R) Rounded,(L) Forward,(R) Forward Pelvis Posture Posterior Tilted Palpation Assessment Location Horace Upper trapezius Palpation Location Base of neck Palpation Findings Soft Tissue Tightness, Tenderness Neck Palpation Location Cervical paraspinals Palpation Findings Soft Tissue Tightness, Tenderness PT-OP-K Range of Motion Start: 05/15/20 18:10 Freq: Status: Active Protocol: Document 06/26/20 10:36 LRN (Rec: 06/26/20 11:17 LRN [id number]) Cervical Spine Range of Motion Cervical Spine Active Degrees Testing Position Sitting Rotation Left 49 Rotation Right 39 PT-OP-L Special Tests Start: 05/15/20 18:10 Freq: Status: Active Protocol: Document 05/26/20 10:40 LRN (Rec: 05/26/20 11:21 LRN [id number]) Special Tests Cervical Spine Special Tests Vertebral Artery Test Results negative when checked in sitting. PT-OP-M Strength Start: 05/15/20 18:10 Freq: Status: Active Protocol: Document 05/16/20 11:25 LRN (Rec: 05/16/20 12:34 LRN [id number]) Cervical Spine Strength Cervical Spine Manual Muscle Testing Testing Position Sitting Flexion (C1-2) 3 Fair Extension 3- Fair- Shoulder Strength Shoulder Manual Muscle Testing Right Flexion 5 Normal Abduction (C5) 5 Normal External Rotation 3 Fair Internal Rotation 5 Normal Left Flexion 5 Normal Abduction (C5) 5 Normal External Rotation 3 Fair Internal Rotation 5 Normal PT-OP-Q Treatments Start: 05/15/20 18:10 Freq: Status: Active Protocol: Document 06/26/20 10:36 LRN (Rec: 06/26/20 11:17 LRN [id number]) Therapeutic Exercises Sitting Exercises Row Sitting Exercise Name Row Side bilateral Resistance Lev 2 & L1 TBand Reps/Minutes 10x Comments Long rest after Cervical Ext Sitting Exercise Name Resisted C. Ext Equipment Used Lev 1 TBand resist Reps/Minutes 10' Comments Rest btn man & TBand ex. Extra time for training of self ex. Scapular Pinches Sitting Exercise Name Scapular pinches Side bilateral Equipment Used 1/2 roll down spine & ball behind head for neck ext Reps/Minutes 10 hold x 10 Comments Discussed proper posturing, extra time for set up cervical rotation Sitting Exercise Name Cervical Active assisted rotation Side bilateral Reps/Minutes 4' Comments Extra time spent with R rotation CS ext chin tuck Sitting Exercise Name Chin tuck with Cervical extension Reps/Minutes 5' Comments ROM to start 7 deg's, to end 20 deg's. Active C. rot Sitting Exercise Name Active rotation stretch ( extra set R rot) Side bilateral Reps/Minutes 10' Comments At end R rot 39 deg's, L rot 49 deg's Self-Care/Home Management Treatment Education Patient Education Home Exercise Program Activities Self-Care/Home Management Activities Reviewed handouts for pt to concentrate on C. retraction f /b ext, Strengthening C ext with TB, active C. rotation, Scapular pinches. PT-OP-T Assessment and Plan Start: 05/15/20 18:10 Freq: Status: Active Protocol: Document 06/26/20 10:36 LRN (Rec: 06/26/20 11:17 LRN [id number]) Physical Therapy Assessment Goals Three Impairment Neck pain interrupts sleep ( wakes up 2x/night) and limits activity. Short Term Goal (STG) Decrease number of times pt wakes at night due to neck pain to no greater than 2x/ night. 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 LTG Duration 08/14/20 Two Impairment Decreased neck active ROM (rot 10 deg's right, 20 deg's left ) Short Term Goal (STG) Improve sitting posture and neck position to decrease resting forward flexion posturing of the head from 53 deg's flex to no greater than 30 deg's flexion and with pt able to hold head up to look forward without pain. STG Duration 06/30/20 (06/01/20: MET GOAL) [employer] Goal (LTG) Pt will be able to improve painfree active cervical rotation not less than 45 deg' s bilaterally with pt goal to turn head enough to drive a car. 06/26/20: C rotation: Actively in sitting improved R rot from 30 to 39 deg's and L rot from 30 to 49 deg's. LTG Duration 08/14/20 (06/12/20: Met for L rotation) One Impairment Pt lacks an appropropriate self care HEP. [employer] Goal (LTG) Pt will be educated in a self care HEP of ROM and strengthening exercises of the neck and shoulders for independent self care. LTG Duration 08/14/20 (06/26/20: Progressing ) Progress Towards Goals Progress Comments Improved C rotation: Actively in sitting improved R rot from 30 to 39 deg's and L rot from 30 to 49 deg's. Assessment Summary Assessment Pt shows good understanding of dillon neck ext with Lev1 TB. Pt presenting self with his head held up, but fatigues after therapy, requiring reminders to keep eyes up/ level view. Pt showed no signs of fatigue with sitting exercises. Pt close to independent self care on HEP. Physical Therapy Plan Frequency and Duration Frequency of Treatment 2x/Week Plan of Care Start Date 05/16/20 Plan of Care End Date 08/14/20 Next Visit Focus/Plan Next Note Type Discharge Summary Next Visit Plan Cont to monitor closely for signs of cardiac distress during therapy (SpO2). Issue 4 ex's for pt to focus on to prevent reoccurance of pain and DC to HEP. Issue HEP: standing hip flexor stretch. MWM to improve C/ S rot. and remeasure. Try isometric end-range shoulder flex ex, and standing pec stretch and strengthen upper thoracic extensors.
--- NOTE | 2020-06-30 09:39 | PT-OP ANOTE ---
Pt canceled due to O2 line came undone during the night. left at pt home requesting call back to determine if he is wanting to discharge from therapy today.
--- NOTE | 2020-07-06 16:33 | PT-OP ANOTE ---
Msg left for pt to call regarding status of PT. Notified pt if not hearing from pt by tomorrow he will be discharged from therapy and that if further therapy is needed that he seek a new referral from his physician.
--- NOTE | 2020-07-21 12:24 | PT.OTN ---
Current Diagnoses Spondylolisthesis, cervical region (07/21/20) Spondylosis without myelopathy or radiculopathy, cervical region (07/21/20) Other specified dorsopathies, cervical region (07/21/20) Radiculopathy, cervical region (07/21/20) Physical Therapy Treatment Note PT-OP-A Visit Information Start: 05/15/20 18:10 Freq: Status: Active Protocol: Document 07/21/20 11:24 LRN (Rec: 07/21/20 12:23 LRN [id number]) Out-Patient Physical Therapy Visit Information Visit Information Visit Type Discharge Summary Visit Start Time 11:24 Visit Stop Time 12:04 Total Visit Minutes 40 Visit Number 10 Evaluation Information Evaluation Date 05/16/20 Precautions Precautions Lung CA that is malignant, COPD on 2L O2 via nasal cannula, A. Fib, HTN, history of heart failure ( systolic) with preserved ejection fraction, LE neuropathy, foot pain, bilateral shoulder pain, hearing deficit. PT-OP-B Current Condition Start: 05/15/20 18:10 Freq: Status: Active Protocol: Document 05/16/20 11:25 LRN (Rec: 05/16/20 12:34 LRN [id number]) Current Condition History of Current Condition Onset Date 3 months ago Current Complaints Can't turn head or up/down History of Current Condition Insidious onset. Not ever had before. Prior Treatments and Tests Xray & MRI @ [facility] ER last night due to high Potasium level and kidney function not good. Developmental History Developmental History None Treatment Goals Patient/Caregiver Goals Pt goal is to be able to turn the neck to see sideways to drive (last drove 9 months ago ). Sometimes wakes him up at night (2x/night). 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 Current Functional Impairments (Reported) Functional Limitations- ADL's Wakes him up 2x/night . Not able to drive because can' t turn head. 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 Personal Factors Other Personal Factors That May Effect Lung CA that is malignant, Therapy/Recovery Heart Failure, A fib, Cirrhosis, COPD on 2L O2 since 07/2019 via nasal canula, foot pain, HTN, LE neuropathy, shoulder pain, neck pain. PT-OP-C Subjective Start: 05/15/20 18:10 Freq: Status: Active Protocol: Document 07/21/20 11:24 LRN (Rec: 07/21/20 12:23 LRN [id number]) OP-PT Subjective Patient Comments Patient Comments Much imiproved. Upper back pain due to arthritis. Patient Questionnaires Neck Disability Index NDI Score 13 Neck Disability Index Impairment 20 to 39% Impaired (Score 10- 19) Quick Dash- Upper Extremity Quick Dash UE Score 25 Quick Dash UE Impairment 20 to 39% Impaired (Score 20- 39) OP-PT Pain Assessment Pain Assessment Grid Paper Pain Assessment Grid Completed Yes Location Shoulders Intensity 0 Neck Pain Location Details Occasional neck/upper back pain Intensity 0 PT-OP-H Neuro Start: 05/15/20 18:10 Freq: Status: Active Protocol: Document 06/06/20 12:47 LRN (Rec: 06/06/20 13:35 LRN [id number]) Vital Signs Oxygen Pulse Oximetry at Rest (%) (95-100 %) 87 L Pulse Oximetry with Activity (%) (95-100 70 L %) Oxygen Delivery Method Nasal Cannula Oxygen Flow Rate (LPM) (L/min) 4 Comments Vital Signs Comments SpO2 was 90% at end of therapy . Pt noted no lightheadedness or dizziness. PT-OP-J Posture/Palpation/Skin Start: 05/15/20 18:10 Freq: Status: Active Protocol: Document 05/16/20 11:25 LRN (Rec: 05/16/20 12:34 LRN [id number]) Posture Evaluation Position Sitting Head/C-Spine Posture Forward Head T-Spine Posture Increased Kyphosis Shoulder Posture (L) Rounded,(R) Rounded,(L) Forward,(R) Forward Pelvis Posture Posterior Tilted Palpation Assessment Location Horace Upper trapezius Palpation Location Base of neck Palpation Findings Soft Tissue Tightness, Tenderness Neck Palpation Location Cervical paraspinals Palpation Findings Soft Tissue Tightness, Tenderness PT-OP-K Range of Motion Start: 05/15/20 18:10 Freq: Status: Active Protocol: Document 07/21/20 11:24 LRN (Rec: 07/21/20 12:23 LRN [id number]) Cervical Spine Range of Motion Cervical Spine Active Degrees Testing Position Sitting Rotation Left 49 Rotation Right 39 PT-OP-L Special Tests Start: 05/15/20 18:10 Freq: Status: Active Protocol: Document 05/26/20 10:40 LRN (Rec: 05/26/20 11:21 LRN [id number]) Special Tests Cervical Spine Special Tests Vertebral Artery Test Results negative when checked in sitting. PT-OP-M Strength Start: 05/15/20 18:10 Freq: Status: Active Protocol: Document 05/16/20 11:25 LRN (Rec: 05/16/20 12:34 LRN [id number]) Cervical Spine Strength Cervical Spine Manual Muscle Testing Testing Position Sitting Flexion (C1-2) 3 Fair Extension 3- Fair- Shoulder Strength Shoulder Manual Muscle Testing Right Flexion 5 Normal Abduction (C5) 5 Normal External Rotation 3 Fair Internal Rotation 5 Normal Left Flexion 5 Normal Abduction (C5) 5 Normal External Rotation 3 Fair Internal Rotation 5 Normal PT-OP-Q Treatments Start: 05/15/20 18:10 Freq: Status: Active Protocol: Document 07/21/20 11:24 LRN (Rec: 07/21/20 12:23 LRN [id number]) Therapeutic Exercises Sitting Exercises Row Sitting Exercise Name Row Side bilateral Resistance Lev 2 & L1 TBand Reps/Minutes 15x Cervical Ext Sitting Exercise Name Resisted C. Ext Equipment Used Lev 1 TBand resist Reps/Minutes 8' Comments Rest btn man & TBand ex. Extra time for training of self ex. Scapular Pinches Sitting Exercise Name Scapular pinches Side bilateral Equipment Used 1/2 roll down spine & ball behind head for neck ext Reps/Minutes 10 hold x 10 Comments Discussed proper posturing, extra time for set up cervical rotation Sitting Exercise Name Cervical Active assisted rotation Side bilateral Reps/Minutes 4' Comments Extra time spent with R rotation CS ext chin tuck Sitting Exercise Name Chin tuck with Cervical extension Reps/Minutes 5' Comments ROM to start 7 deg's, to end 20 deg's. Active C. rot Sitting Exercise Name Active rotation stretch ( extra set R rot) Side bilateral Reps/Minutes 6' Comments At end R rot 39 deg's, L rot 49 deg's Standing Exercises Iliopsoas stretch Standing Exercise Name Runners stretch - CGA, pt to hold solid object at home Side bilateral Reps/Minutes 4' Comments Extra time needed for finding max tolerance of stretch and standing. Self-Care/Home Management Treatment Activities Self-Care/Home Management Activities Issued & reviewed HEP, added and issued/reviewed new HEP ( previously performed in therapy): *Standing Hip flexor stretch. PT-OP-T Assessment and Plan Start: 05/15/20 18:10 Freq: Status: Active Protocol: Document 07/21/20 11:24 LRN (Rec: 07/21/20 12:23 LRN [id number]) Physical Therapy Assessment Goals Four Impairment Poor sitting posture Short Term Goal (STG) Pt will be educated in improved head/shoulder posturing mechanics for sitting while at resting and when in bed at nighttime. STG Duration 06/02/20 (06/01/20: MET GOAL) Three Impairment Neck pain interrupts sleep ( wakes up 2x/night) and limits activity. Short Term Goal (STG) Decrease number of times pt wakes at night due to neck pain to no greater than 2x/ night. STG Duration 06/30/20 (06/09/20: MET GOAL) Long-Term Goal (LTG) Pt will be able to tolerate making of bread. 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 LTG Duration 08/14/20 (07/21/20: MET GOAL) Two Impairment Decreased neck active ROM (rot 10 deg's right, 20 deg's left ) Short Term Goal (STG) Improve sitting posture and neck position to decrease resting forward flexion posturing of the head from 53 deg's flex to no greater than 30 deg's flexion and with pt able to hold head up to look forward without pain. STG Duration 06/30/20 (07/21/20: MET GOAL) Long-Term Goal (LTG) Pt will be able to improve painfree active cervical rotation not less than 45 deg' s bilaterally with pt goal to turn head enough to drive a car. (07/21/20: C rotation: Actively in sitting improved R rot 40 deg's and L rot 45 deg 's.) LTG Duration 08/14/20 (07/21/20: MET GOAL) One Impairment Pt lacks an appropropriate self care HEP. Long-Term Goal (LTG) Pt will be educated in a self care HEP of ROM and strengthening exercises of the neck and shoulders for independent self care. LTG Duration 08/14/20 (07/21/20: MET GOAL) Progress Towards Goals Progress Comments Improved C rotation: Actively in sitting improved R rot from 39 to 40 deg's and L rot is 45 deg's. Improved Extension to 22 deg' s (initially starting position was 15 deg's flexion on active ext). Assessment Summary Assessment Pt met all goals. His Cervical R rot was stiff, but significantly improved with stretching. He has good understanding of his HEP and has done very well with self exercises, increasing his active cervical ext to 22 deg' s. Pt has habit of holding his head down, but can position his head in neutral. He reports occasional discomfort in the neck and upper back rated 1/10. Physical Therapy Plan Discharge Physical Therapy Discharge Reasons Goals Met Discharge Comments Pt has done very well with therapy and is on a HEP. Thank you for your referral.
== END 2020-07-21 14:12 | disposition home or self-care (01) ==
LOC: PHYS 11:15
PROVIDERS: Family Provider Family Medicine; PCP Family Medicine; Referring Provider Anesthesiology; Visit Provider Anesthesiology
DX: M47.812 Spondylosis without myelopathy or radiculopathy, cervical region (principal); M54.12 Radiculopathy, cervical region; M43.12 Spondylolisthesis, cervical region; M53.82 Other specified dorsopathies, cervical region
CPT/HCPCS: 97110; 97140; 97162; 97535

== ENCOUNTER → 2020-07-28 11:16 | Outpatient (CLI) | payer MEDICARE, OTHER, SELFPAY ==
[2020-05-22 10:54] VITALS: BMI 27.1
[2020-06-06 12:47] VITALS: O2SAT 87
[2020-07-28 12:15] LABS: Add Manual Diff / Slide Review NO; Basophils Absolute Auto 100 /uL (0-100); Basophils Percent Auto 1.2 % (0-2); Eosinophils Absolute Auto 400 /uL (0-450); Eosinophils Percent Auto 5.1 % (2-4); Hematocrit 35.2 % (41-53); Hemoglobin 11.6 g/dL (13.5-17.5); Lymphocytes Absolute Auto 700 /uL (1100-4500); Lymphocytes Percent Auto 10.1 % (25-40); Mean Corpuscular HGB Conc 32.9 % (30-36); Mean Corpuscular Hemoglobin 29.6 PG (26-34); Mean Corpuscular Volume 89.9 fL (80-100); Monocytes Absolute Auto 600 /uL (0-900); Monocytes Percent Auto 8.8 % (3-14); Neutrophils Absolute Auto 5400 /uL (1500-7000); Neutrophils Percent Auto 74.8 % (50-75); Platelet Count 167 X10^3/uL (150-400); Red Blood Cell Count 3.91 X10^6/uL (4.5-5.9); Red Cell Distribution Width 14.8 % (11.6-14.8); White Blood Cell Count 7.2 X10^3/uL (4.5-11.0)
[2020-07-28 12:41] LABS: Alanine Aminotransferase 17 IU/L (<50); Albumin 4.1 g/dL (3.5-5.0); Albumin Globulin Ratio 1.2 (1.0-2.8); Alkaline Phosphatase 141 U/L (38-126); Aspartate Aminotransferase 27 IU/L (17-59); BUN Creatinine Ratio 19.6 (6-22); Bilirubin Total 0.6 mg/dL (0.2-1.3); Blood Urea Nitrogen 41 mg/dL (9-20); Calcium 9.5 mg/dL (8.4-10.2); Carbon Dioxide 28 mmol/L (22-32); Chloride 106 mmol/L (98-107); Estimated Glomerular Filt Rate 30.6 mL/min (>60); Globulin 3.4 g/dL (1.7-4.1); Glucose 111 mg/dL (80-110); HEMOLYSIS < 15 (0-50); Potassium 5.3 mmol/L (3.4-5.1); Sodium 140 mmol/L (137-145); Total Protein 7.5 g/dL (6.3-8.2)
[2020-07-28 17:34] LABS: Thyroid Stimulating Hormone 7.75 uIU/mL (0.47-4.68)
== END ==
PROVIDERS: Family Provider Family Medicine; PCP Family Medicine; Referring Provider Internal Medicine Hematology & Oncology; Visit Provider Internal Medicine Hematology & Oncology
DX: C34.90 Malignant neoplasm of unspecified part of unspecified bronchus or lung (principal)
CPT/HCPCS: 36415; 80053; 84443; 85025

== ENCOUNTER → 2020-08-19 11:16 | Outpatient (CLI) | payer MEDICARE, OTHER, SELFPAY ==
[2020-05-22 10:54] VITALS: BMI 27.1
[2020-06-06 12:47] VITALS: O2SAT 87
[2020-08-19 11:56] LABS: Add Manual Diff / Slide Review NO; Basophils Absolute Auto 100 /uL (0-100); Basophils Percent Auto 1.3 % (0-2); Eosinophils Absolute Auto 100 /uL (0-450); Hematocrit 37.1 % (41-53); Hemoglobin 11.9 g/dL (13.5-17.5); Lymphocytes Absolute Auto 600 /uL (1100-4500); Lymphocytes Percent Auto 9.9 % (25-40); Mean Corpuscular Hemoglobin 28.6 PG (26-34); Mean Corpuscular Volume 89.3 fL (80-100); Monocytes Absolute Auto 600 /uL (0-900); Monocytes Percent Auto 10.7 % (3-14); Neutrophils Absolute Auto 4600 /uL (1500-7000); Neutrophils Percent Auto 76.1 % (50-75); Platelet Count 138 X10^3/uL (150-400); Red Blood Cell Count 4.16 X10^6/uL (4.5-5.9); Red Cell Distribution Width 15.5 % (11.6-14.8)
[2020-08-19 12:25] LABS: Alanine Aminotransferase 18 IU/L (<50); Albumin 4.2 g/dL (3.5-5.0); Albumin Globulin Ratio 1.1 (1.0-2.8); Alkaline Phosphatase 143 U/L (38-126); Aspartate Aminotransferase 30 IU/L (17-59); BUN Creatinine Ratio 19.4 (6-22); Bilirubin Total 0.7 mg/dL (0.2-1.3); Blood Urea Nitrogen 38 mg/dL (9-20); Calcium 9.7 mg/dL (8.4-10.2); Carbon Dioxide 24 mmol/L (22-32); Chloride 102 mmol/L (98-107); Estimated Glomerular Filt Rate 32.9 mL/min (>60); Glucose 121 mg/dL (80-110); HEMOLYSIS < 15 (0-50); Potassium 5.3 mmol/L (3.4-5.1); Sodium 137 mmol/L (137-145); Total Protein 8.2 g/dL (6.3-8.2)
[2020-08-19 12:54] LABS: Thyroid Stimulating Hormone 3.01 uIU/mL (0.47-4.68)
== END ==
PROVIDERS: Family Provider Family Medicine; PCP Family Medicine; Referring Provider Internal Medicine Hematology & Oncology; Visit Provider Internal Medicine Hematology & Oncology
DX: C34.90 Malignant neoplasm of unspecified part of unspecified bronchus or lung (principal); I10 Essential (primary) hypertension
CPT/HCPCS: 36415; 80053; 84443; 85025

== ENCOUNTER → 2020-09-08 10:18 | Outpatient (CLI) | payer MEDICARE, OTHER, SELFPAY ==
[2020-05-22 10:54] VITALS: BMI 27.1
[2020-06-06 12:47] VITALS: O2SAT 87
[2020-09-08 11:39] LABS: Hematocrit 34.5 % (41-53); Hemoglobin 11.3 g/dL (13.5-17.5); Mean Corpuscular HGB Conc 32.7 % (30-36); Mean Corpuscular Hemoglobin 28.6 PG (26-34); Mean Corpuscular Volume 87.7 fL (80-100); Platelet Count 167 X10^3/uL (150-400); Red Blood Cell Count 3.93 X10^6/uL (4.5-5.9); Red Cell Distribution Width 15.2 % (11.6-14.8); White Blood Cell Count 6.9 X10^3/uL (4.5-11.0)
[2020-09-08 11:56] LABS: Alanine Aminotransferase 15 IU/L (<50); Albumin 3.8 g/dL (3.5-5.0); Albumin Globulin Ratio 1.1 (1.0-2.8); Alkaline Phosphatase 168 U/L (38-126); Aspartate Aminotransferase 29 IU/L (17-59); BUN Creatinine Ratio 18.7 (6-22); Bilirubin Total 0.6 mg/dL (0.2-1.3); Blood Urea Nitrogen 34 mg/dL (9-20); Calcium 9.5 mg/dL (8.4-10.2); Carbon Dioxide 26 mmol/L (22-32); Chloride 104 mmol/L (98-107); Estimated Glomerular Filt Rate 35.8 mL/min (>60); Globulin 3.6 g/dL (1.7-4.1); Glucose 105 mg/dL (80-110); HEMOLYSIS < 15 (0-50); Sodium 138 mmol/L (137-145); Total Protein 7.4 g/dL (6.3-8.2)
[2020-09-08 11:57] LABS: Potassium 5.6 mmol/L (3.4-5.1)
[2020-09-08 14:24] LABS: Neutrophils Absolute Manual 5382 /uL (3000-5900); Total Cells Counted 100
[2020-09-08 14:25] LABS: RBC Morphology Normal Morphology
== END ==
PROVIDERS: Family Provider Family Medicine; PCP Family Medicine; Referring Provider Internal Medicine Hematology & Oncology; Visit Provider Internal Medicine Hematology & Oncology
DX: C34.90 Malignant neoplasm of unspecified part of unspecified bronchus or lung (principal)
CPT/HCPCS: 36415; 80053; 85025

== ENCOUNTER → 2020-10-20 11:18 | Outpatient (CLI) | payer MEDICARE, OTHER, SELFPAY ==
[2020-05-22 10:54] VITALS: BMI 27.1
[2020-06-06 12:47] VITALS: O2SAT 87
[2020-10-20 12:13] LABS: Add Manual Diff / Slide Review NO; Basophils Absolute Auto 100 /uL (0-100); Basophils Percent Auto 1.1 % (0-2); Eosinophils Absolute Auto 300 /uL (0-450); Eosinophils Percent Auto 4.2 % (2-4); Hematocrit 37.2 % (41-53); Hemoglobin 11.8 g/dL (13.5-17.5); Lymphocytes Absolute Auto 700 /uL (1100-4500); Lymphocytes Percent Auto 11.4 % (25-40); Mean Corpuscular HGB Conc 31.8 % (30-36); Mean Corpuscular Volume 88.3 fL (80-100); Monocytes Absolute Auto 500 /uL (0-900); Monocytes Percent Auto 8.5 % (3-14); Neutrophils Absolute Auto 4500 /uL (1500-7000); Neutrophils Percent Auto 74.8 % (50-75); Platelet Count 164 X10^3/uL (150-400); Red Blood Cell Count 4.21 X10^6/uL (4.5-5.9); Red Cell Distribution Width 16.8 % (11.6-14.8); White Blood Cell Count 6.1 X10^3/uL (4.5-11.0)
[2020-10-20 12:32] LABS: Alanine Aminotransferase 17 IU/L (<50); Albumin 3.6 g/dL (3.5-5.0); Alkaline Phosphatase 143 U/L (38-126); Aspartate Aminotransferase 30 IU/L (17-59); BUN Creatinine Ratio 17.9 (6-22); Bilirubin Total 0.6 mg/dL (0.2-1.3); Blood Urea Nitrogen 33 mg/dL (9-20); Calcium 9.3 mg/dL (8.4-10.2); Carbon Dioxide 27 mmol/L (22-32); Estimated Glomerular Filt Rate 35.4 mL/min (>60); Globulin 3.7 g/dL (1.7-4.1); Glucose 103 mg/dL (80-110); HEMOLYSIS < 15 (0-50); Sodium 138 mmol/L (137-145); Total Protein 7.3 g/dL (6.3-8.2)
[2020-10-20 12:36] LABS: Potassium 5.4 mmol/L (3.4-5.1)
[2020-10-20 12:40] LABS: Chloride 104 mmol/L (98-107)
== END ==
PROVIDERS: Family Provider Family Medicine; PCP Family Medicine; Referring Provider Internal Medicine Hematology & Oncology; Visit Provider Internal Medicine Hematology & Oncology
DX: C34.90 Malignant neoplasm of unspecified part of unspecified bronchus or lung (principal)
CPT/HCPCS: 36415; 80053; 85025

== ENCOUNTER → 2020-12-01 11:54 | Outpatient (CLI) | payer MEDICARE, OTHER, SELFPAY ==
[2020-05-22 10:54] VITALS: BMI 27.1
[2020-12-01 12:59] LABS: Add Manual Diff / Slide Review NO; Basophils Absolute Auto 100 /uL (0-100); Basophils Percent Auto 1.4 % (0-2); Eosinophils Absolute Auto 400 /uL (0-450); Eosinophils Percent Auto 5.3 % (2-4); Hematocrit 35.3 % (41-53); Hemoglobin 11.3 g/dL (13.5-17.5); Lymphocytes Absolute Auto 600 /uL (1100-4500); Lymphocytes Percent Auto 7.8 % (25-40); Mean Corpuscular HGB Conc 32.1 % (30-36); Mean Corpuscular Hemoglobin 28.5 PG (26-34); Mean Corpuscular Volume 88.6 fL (80-100); Monocytes Absolute Auto 500 /uL (0-900); Monocytes Percent Auto 6.8 % (3-14); Neutrophils Absolute Auto 6300 /uL (1500-7000); Neutrophils Percent Auto 78.7 % (50-75); Platelet Count 200 X10^3/uL (150-400); Red Blood Cell Count 3.98 X10^6/uL (4.5-5.9); Red Cell Distribution Width 16.5 % (11.6-14.8)
[2020-12-01 13:13] LABS: Alanine Aminotransferase 16 IU/L (<50); Albumin 3.5 g/dL (3.5-5.0); Albumin Globulin Ratio 0.9 (1.0-2.8); Alkaline Phosphatase 152 U/L (38-126); Aspartate Aminotransferase 29 IU/L (17-59); BUN Creatinine Ratio 19.2 (6-22); Bilirubin Total 0.6 mg/dL (0.2-1.3); Blood Urea Nitrogen 29 mg/dL (9-20); Carbon Dioxide 29 mmol/L (22-32); Chloride 105 mmol/L (98-107); Estimated Glomerular Filt Rate 44.4 mL/min (>60); Globulin 3.9 g/dL (1.7-4.1); Glucose 128 mg/dL (80-110); HEMOLYSIS < 15 (0-50); Sodium 141 mmol/L (137-145); Total Protein 7.4 g/dL (6.3-8.2)
== END ==
PROVIDERS: Family Provider Family Medicine; PCP Family Medicine; Referring Provider Internal Medicine Hematology & Oncology; Visit Provider Internal Medicine Hematology & Oncology
DX: C34.90 Malignant neoplasm of unspecified part of unspecified bronchus or lung (principal); Z79.899 Other long term (current) drug therapy
CPT/HCPCS: 36415; 80053; 84443; 85025

== ENCOUNTER 2021-01-21 11:31 | Emergency (ER) | payer MEDICARE, OTHER, SELFPAY ==
[2020-05-22 10:54] VITALS: BMI 27.1
[2021-01-21 11:50] VITALS: BP 121/67; PULSE 60; RESP 18; TEMP 36.4; O2SAT 94
--- NOTE | 2021-01-21 13:00 | PC.NURSE ---
Home dressings taken down by this RN. Multiple skin tears to bilat arms. Dressings were secured with coban and had become quite tight, with skin indentations and fluid collections around borders. Explained to this tightening tendency and taught for future dressings. Nonadherents lightly applied prior to MD assessment
--- NOTE | 2021-01-21 14:05 | PC.NURSE ---
MD at bedside applying medicated wound dressings. Teaching performed, communicates understanding.
--- NOTE | 2021-01-21 14:09 | ED.FALL ---
HPI - Fall General Chief Complaint: Fall Stated Complaint: fell hurt arm Time Seen by Provider: 01/21/21 13:16 Source: patient Mode of arrival: Wheelchair History of Present Illness HPI Narrative: Patient is an 85-year-old male with history of lung cancer, COPD on chronic oxygen and atrial fibrillation on Coumadin, presenting today with skin tears. He apparently fell 5-6 days ago and caught himself on furniture. He has skin tears on both arms. The has been being deemed being them as best she can. Skin tear on left arm is becoming a bit more erythematous. No fever. He did not hit his head. He has been doing well since then. Related Data Home Medications Medication Instructions Recorded Confirmed digoxin 250 mcg (0.25 mg) tablet 0.125 mg PO QDAY #0 10/29/12 05/23/20 (Lanoxin) furosemide 20 mg tablet (Lasix) 20 mg PO QDAY tab 05/23/20 05/23/20 Previous Rx's Medication Instructions Recorded albuterol sulfate 90 mcg/actuation 1 puff INH Q4HP PRN #1 ea 09/03/17 aerosol inhaler (Ventolin HFA) metoprolol succinate 200 mg 200 mg PO QDAY #90 tab 02/09/18 tablet,extended release 24 hr (Toprol XL) lidocaine 5 % topical patch 1 patch TOP DAILY #30 each 02/14/20 gabapentin 300 mg capsule 300 mg PO BEDTIME #90 cap 09/11/20 ciclopirox 8 % topical solution 1 applic TOPICAL BEDTIME 28 Days 10/09/20 #6.6 ml warfarin 5 mg tablet See Rx Instructions PO DAILY #90 11/13/20 tab Handicap Placard #1 ea 11/15/20 losartan 50 mg tablet See Rx Instructions .ROUTE 01/10/21 .COMPLEX #90 tab cephalexin 500 mg capsule 500 mg PO BID 7 Days #14 cap 01/21/21 Allergies Allergy/AdvReac Type Severity Reaction Status Date / Time Penicillins Allergy Mild RASH Verified 05/23/20 16:32 Review of Systems Review of Systems Narrative: GENERAL: Denies chills,fever HEENT: Denies throat pain RESPIRATORY: Denies dyspnea, cough, wheezing CARDIOVASCULAR: Denies chest pain, palpitations GASTROINTESTINAL: Denies nausea, vomiting MUSCULOSKELETAL: Denies extremity pain, injury SKIN: See HPI NEUROLOGIC: Denies weakness, dizziness, headache, numbness 8 point review of systems is negative except for those stated above and HPI Patient History Medical History (Updated 01/21/21 @ 14:17 by Jane Boyd DO) (HFpEF) heart failure with preserved ejection fraction Atrial fibrillation Cataract Cirrhosis COPD (chronic obstructive pulmonary disease) (~2011) Foot pain (~2012) Hearing deficit Heart failure, systolic Hyperlipidemia Hyperparathyroidism Hypertension Ingrown toenail Lower extremity neuropathy Lung cancer (~2012) Neck pain Normal stress echocardiogram (~09/12/10) Shoulder pain Skin infection Surgical History Status post parathyroidectomy (~1982) Surgical procedure planned (~06/08/12) Family History Sister Hypertension Social History Smoking Status: Former smoker Tobacco: How many years used: 30 Smoking Status: Former smoker Substance Use Type: does not use Exam Initial Vital Signs Initial Vital Signs: Vital Signs Temperature 97.5 F L 01/21/21 11:50 Pulse Rate 60 01/21/21 11:50 Respiratory Rate 18 01/21/21 11:50 Blood Pressure 121/67 01/21/21 11:50 Pulse Oximetry 94 01/21/21 11:50 GENERAL: Alert pleasant chronically ill 85-year-old male CARDIOVASCULAR: peripheral pulses in tact, cap refill <2 sec RESPIRATORY: No respiratory distress, speaks in full sentences without difficulty EXTREMITIES: Normal range of motion, no clubbing or edema. Neurovascularly intact NEUROLOGICAL: Cranial nerves II through XII grossly intact. Normal gait and speech. SKIN: Skin tear noted on right upper triceps area actually appears to be doing well no surrounding erythema or drainage. A left arm there are 2 areas of skin tear is becoming more erythematous slightly swollen non tender no drainage Course Vital Signs Vital signs: Vital Signs - 8 hr 01/21/21 11:50 Temperature 97.5 F L Pulse Rate 60 Respiratory Rate 18 Blood Pressure 121/67 Pulse Oximetry 94 MDM - Fall MDM Narrative Medical decision making narrative: Patient left arm does appear to have some mild cellulitis. He is afebrile, he overall appears well. I have placed Ruth dressings on the wounds. And given instructions. I have instructed her to check his INR at home couple times this week because of antibiotics and Coumadin. She said it was checked yesterday and in the appropriate range Discharge Plan Departure Patient Disposition: Home Clinical Impression: Cellulitis Qualifiers: Site of cellulitis: extremity Site of cellulitis of extremity: upper extremity Laterality: right Qualified Code(s): L03.113 - Cellulitis of right upper limb Instructions: Cellulitis Activity Restrictions/Additional Instructions: *You have been diagnosed with cellulitis *What to do: He may keep the nice pink bandage is on for 5-7 days even in the shower Please check INR at least 2 times while taking antibiotics. The antibiotics can increase or decrease the INR which can be very dangerous *Continue to take medications as directed Keflex 500 mg twice a day for 7 *Follow up with your primary care provider in 2-3 days *Return to ER if you should have increasing redness, fever weakness any new, worsening or concerning symptoms Prescriptions: New cephalexin 500 mg capsule 500 mg PO BID 7 Days Qty: 14 RF: 0 No Action digoxin [Lanoxin] 250 MCG tablet 0.125 mg PO QDAY Qty: 0 RF: 0 albuterol sulfate [Ventolin HFA] 90 MCG/PUFF HFA aerosol inhaler 1 puff INH Q4HP PRNQty: 1 RF: 5 gabapentin 300 mg capsule 300 mg PO BEDTIME Qty: 90 RF: 3 warfarin 5 mg tablet See Rx Instructions PO DAILY Qty: 90 RF: 3 (DME) Handicap Placard Qty: 1 RF: 0 losartan 50 mg tablet See Rx Instructions .ROUTE .COMPLEX Qty: 90 RF: 0 metoprolol succinate [Toprol XL] 200 mg tablet extended release 24 hr 200 mg PO QDAY Qty: 90 RF: 3 furosemide [Lasix] 20 mg tablet 20 mg PO QDAY RF: 0 ciclopirox 8 % solution 1 applic topical BEDTIME 28 Days Qty: 6.6 RF: 2 lidocaine 5 % adhesive patch,medicated 1 patch TOP DAILY Qty: 30 RF: 5 Referrals: Ashwin Shepherd DO [Primary Care Provider] -
[2021-01-21 14:27] VITALS: BP 134/79; PULSE 54; RESP 22; O2SAT 97
== END 2021-01-21 14:27 | disposition home or self-care (01) ==
PROVIDERS: Emergency Provider Emergency Medicine; Family Provider Family Medicine; PCP Family Medicine
DX: L03.113 Cellulitis of right upper limb (principal); S41.112A Laceration without foreign body of left upper arm, initial encounter; S41.111A Laceration without foreign body of right upper arm, initial encounter; W19.XXXA Unspecified fall, initial encounter; Z79.01 Long term (current) use of anticoagulants
CPT/HCPCS: 99284; 99285

== ENCOUNTER 2021-02-23 13:40 | Inpatient (IN) | payer MEDICARE, OTHER, SELFPAY ==
[2020-05-22 10:54] VITALS: BMI 27.1
[2021-02-23] VITALS (17 sets, daily range): BP systolic 116–152; BP diastolic 56–71; PULSE 44–81; RESP 16–33; TEMP 35.4–36.4; O2SAT 70–98; BMI 25.4; BMI 25.8
--- NOTE | 2021-02-23 14:30 | DI.RAD.S_ITS ---
PROCEDURE: XR CHEST 1V INDICATIONS: SOB TECHNIQUE: One view of the chest was acquired. COMPARISON: None. FINDINGS: Surgical changes and devices: None. Lungs and pleura: Increased interstitial markings in both lungs. Small right pleural effusion with overlying airspace disease. No pleural effusions or pneumothorax. Mediastinum: Mediastinal contours appear normal. Cardiomegaly. Bones and chest wall: No suspicious bony lesions. Overlying soft tissues appear unremarkable. IMPRESSION: Cardiomegaly with increased interstitial markings and small right pleural effusion with overlying airspace disease. Findings likely due to pulmonary edema. Dictated by: Merrick Buenrostro M.D. on 02/23/2021 at 15:10 Approved by: Merrick Buenrostro M.D. on 02/23/2021 at 15:13
[2021-02-23 14:52] LABS: Add Manual Diff / Slide Review NO; Basophils Absolute Auto 100 /uL (0-100); Basophils Percent Auto 1.2 % (0-2); Eosinophils Absolute Auto 200 /uL (0-450); Eosinophils Percent Auto 3.2 % (2-4); Hematocrit 33.5 % (41-53); Hemoglobin 10.4 g/dL (13.5-17.5); Lymphocytes Absolute Auto 400 /uL (1100-4500); Lymphocytes Percent Auto 5.5 % (25-40); Mean Corpuscular HGB Conc 31.1 % (30-36); Mean Corpuscular Hemoglobin 28.6 PG (26-34); Mean Corpuscular Volume 91.9 fL (80-100); Monocytes Absolute Auto 600 /uL (0-900); Monocytes Percent Auto 8.6 % (3-14); Neutrophils Absolute Auto 6000 /uL (1500-7000); Neutrophils Percent Auto 81.5 % (50-75); Platelet Count 162 X10^3/uL (150-400); Red Blood Cell Count 3.65 X10^6/uL (4.5-5.9); Red Cell Distribution Width 17.3 % (11.6-14.8); White Blood Cell Count 7.4 X10^3/uL (4.5-11.0)
[2021-02-23 14:55] LABS: INR 3.7 (0.9-1.3); Prothrombin Time 42.4 SECONDS (10.1-12.7)
[2021-02-23 15:00] LABS: Alanine Aminotransferase 17 IU/L (<50); Albumin 3.5 g/dL (3.5-5.0); Alkaline Phosphatase 149 U/L (38-126); Aspartate Aminotransferase 26 IU/L (17-59); BUN Creatinine Ratio 18.4 (6-22); Bilirubin Total 0.6 mg/dL (0.2-1.3); Blood Urea Nitrogen 41 mg/dL (9-20); Calcium 8.7 mg/dL (8.4-10.2); Carbon Dioxide 28 mmol/L (22-32); Chloride 109 mmol/L (98-107); Estimated Glomerular Filt Rate 28.3 mL/min (>60); Globulin 3.6 g/dL (1.7-4.1); Glucose 117 mg/dL (80-110); HEMOLYSIS < 15 (0-50); Lactate (Lactic Acid) 2.1 mmol/L (0.7-2.1); Magnesium 2.1 mg/dL (1.6-2.3); Sodium 141 mmol/L (137-145); Total Protein 7.1 g/dL (6.3-8.2)
[2021-02-23 15:06] LABS: COVID19 -Nasal RAPID Negative (Negative)
[2021-02-23 15:09] LABS: Creatine Kinase 57 U/L (55-170)
--- NOTE | 2021-02-23 15:14 | DI.RAD.S_ITS ---
PROCEDURE: XR ANKLE RT 2V INDICATIONS: wound medial malleoli, cellulitis TECHNIQUE: 2 views of the ankle were acquired. COMPARISON: None. FINDINGS: Bones: No fractures or dislocations. No cortical destruction is appreciated. Ankle mortise is normally aligned. No suspicious bony lesions. Soft tissues: No tibiotalar joint effusion. IMPRESSION: No acute abnormality. Dictated by: Ildefonso Sorensen M.D. on 02/23/2021 at 15:25 Approved by: Ildefonso Sorensen M.D. on 02/23/2021 at 15:27
[2021-02-23 15:16] LABS: Procalcitonin 0.11 ng/mL (<0.5)
--- NOTE | 2021-02-23 15:17 | ED_ITS ---
HPI - SOB/Dyspnea General Chief Complaint: Shortness of Breath/Dyspnea Stated Complaint: Wound On Rt Leg, Infected Time Seen by Provider: 02/23/21 14:13 Source: patient, family and old records reviewed Mode of arrival: Wheelchair Limitations: physical limitation History of Present Illness HPI Narrative: This is an 85-year-old male comes to the emergency department for a wound on his right leg which they are concerned is infected. Patient has been at home and been sleeping a lot his states he has been nodding off of the chair and sometimes difficult to awaken. He is normally on 5 L nasal cannula secondary to known lung cancer and patient is requiring a non-rebreather at 100% to maintain his O2 sats here in the department. Patient also has known cardiovascular disease, and is on digoxin as well as losartan metoprolol and warfarin. He has atrial fibrillation but has not had any prior cardiac stents or coronary artery surgery. Patient received chemotherapy around 2012 and is now receiving immunotherapy for his lung cancer and is not a candidate for chemotherapy any more. He has not had any fevers or chills. He to his chest pain. He has shortness of breath with exertion but denies any when resting. No nausea or vomiting. No new GI or urinary symptoms. He has had chronic swelling of his lower extremities which has been moving up into his abdomen. He is unaware of any cirrhosis or liver issues. He has noted that the wound opened up and started draining the right ankle in the last several days. There is some redness surrounding it. Patient's does have a CT of his chest from a couple months ago which showed some inflammatory changes as well as cancer and a small pleural effusion at that time. Related Data Home Medications Medication Instructions Recorded Confirmed digoxin 250 mcg (0.25 mg) tablet 0.125 mg PO QDAY #0 10/29/12 02/05/21 (Lanoxin) furosemide 20 mg tablet (Lasix) 20 mg PO QDAY tab 05/23/20 02/05/21 Previous Rx's Medication Instructions Recorded albuterol sulfate 90 mcg/actuation 1 puff INH Q4HP PRN #1 ea 09/03/17 aerosol inhaler (Ventolin HFA) metoprolol succinate 200 mg 200 mg PO QDAY #90 tab 02/09/18 tablet,extended release 24 hr (Toprol XL) lidocaine 5 % topical patch 1 patch TOP DAILY #30 each 02/14/20 gabapentin 300 mg capsule 300 mg PO BEDTIME #90 cap 09/11/20 ciclopirox 8 % topical solution 1 applic TOPICAL BEDTIME 28 Days 10/09/20 #6.6 ml Handicap Placard #1 ea 11/15/20 losartan 50 mg tablet See Rx Instructions .ROUTE 01/10/21 .COMPLEX #90 tab warfarin 5 mg tablet See Rx Instructions PO DAILY #90 02/08/21 tab Allergies Allergy/AdvReac Type Severity Reaction Status Date / Time Penicillins Allergy Mild RASH Verified 02/05/21 14:53 Review of Systems Review of Systems ROS Unobtainable: All systems reviewed & are unremarkable except as noted in HPI and below Patient History Medical History (HFpEF) heart failure with preserved ejection fraction Atrial fibrillation Cataract Cirrhosis COPD (chronic obstructive pulmonary disease) (~2011) Foot pain (~2012) Hearing deficit Heart failure, systolic Hyperlipidemia Hyperparathyroidism Hypertension Ingrown toenail Lower extremity neuropathy Lung cancer (~2012) Neck pain Normal stress echocardiogram (~09/12/10) Shoulder pain Skin infection Surgical History Status post parathyroidectomy (~1982) Surgical procedure planned (~06/08/12) Family History Sister Hypertension Social History Smoking Status: Former smoker Tobacco: How many years used: 30 Smoking Status: Former smoker Substance Use Type: does not use Exam Narrative Exam Narrative: GEN: Will e-mail, alert and oriented x 3, patient appears to be in moderate distress. Patient appears chronically ill. HEENT: Atraumatic, pupils are equal round reactive to light, extraocular movements are intact, nares are clear, there is no conjunctival pallor. HEART: Bradycardic rate with a 3/6 systolic ejection murmur, no clicks, rubs. No carotid bruits, positive for JVD. Patient has bilateral 2+ lower extremity swelling. LUNGS:Lungs decreased bilaterally, no wheezes, rales, crackles bilateral bases chest moves symmetrically, no tachypnea. No accessory muscle use. ABD:bowel sounds normal, soft, non-tender, no guarding, rebound, rigidity, no masses noted, no hepatosplenomegaly :No CVA tenderness MSCL: Non-tender, no muscle atrophy. Patient's right medial malleoli has a cm wound that has a surrounding area approximately 8-9 cm of erythema. There appears to be some small amount of subcutaneous tissue exposed. There is serosanguineous drainage but appears to be some purulent drainage at the wound itself. NEURO:CN 2-12 intact, sensation intact to touch bilaterally. Initial Vital Signs Initial Vital Signs: Vital Signs Pulse Rate 58 L 02/23/21 14:02 Pulse Oximetry 93 02/23/21 14:02 Course Orders Ordered: ED Orders 02/23/21 14:24 COVID19 -Nasal swab/Pre-Proc Stat Respiratory Panel (Film Array) Stat 02/23/21 14:30 XR chest 1V Stat 02/23/21 14:32 NT-proBNP (BNP-Adult 18+) Stat Troponin & CK Cardiac Panel Stat 02/23/21 14:40 Complete Blood Count AUTO DIFF Stat Comprehensive Metabolic Panel Stat Lactate (Lactic Acid) Stat Magnesium Stat Procalcitonin Stat Prothrombin Time INR Stat 02/23/21 14:45 EKG-12 Lead Stat 02/23/21 14:55 Blood Culture Stat 02/23/21 15:08 Wound Culture and Gram Stain Stat 02/23/21 15:11 Arterial Blood Gas Stat 02/23/21 15:14 XR ankle RT 2V Stat 02/23/21 15:27 C-Reactive Protein Quant Stat Erythrocyte Sedimentation Rate Stat Acetaminophen (Acetaminophen 325 Mg Tablet) 650 mg PO Q6HR PRN PRN Reason: Fever/Mild Pain (1-3) Albuterol/Ipratropium (Albuterol/Ipratropium 3 Ml Ampul) 3 ml INH RTQ4HR PRN PRN Reason: Shortness Of Breath Cefazolin Sodium (Cefazolin 1 Gm Vial) 1 gm IV Q8H KENYATTA Last Admin: 02/23/21 17:49 Dose: 1 gm Documented by: FRANCISCO Furosemide (Furosemide 100 Mg/10 Ml Vial) 80 mg IV Q12H KENYATTA Naloxone HCl (Naloxone 0.4 Mg/Ml Vial) 0.2 mg IV Q2MIN PRN PRN Reason: Opiate Reversal Ondansetron HCl (Ondansetron 4 Mg/2 Ml Inj) 4 mg IV Q8HR PRN PRN Reason: Nausea And Vomiting Discontinued Medications Furosemide (Furosemide 100 Mg/10 Ml Vial) 80 mg IV NOW ONE Stop: 02/23/21 16:45 Last Admin: 02/23/21 16:50 Dose: 80 mg Documented by: MIKAYLA Heparin Sodium (Porcine) (Heparin 5,000 Unit/Ml Vial) 5,000 unit SUBCUT BID KENYATTA Clindamycin Phosphate (Cleocin) 900 mg in 50 mls @ 50 mls/hr IV NOW ONE Stop: 02/23/21 17:02 Last Infusion: 02/23/21 17:23 Dose: 0 mls/hr Documented by: Admin: 02/23/21 16:06 Dose: 50 mls/hr Documented by: MIKAYLA Vital Signs Vital signs: Vital Signs - 8 hr 02/23/21 14:02 02/23/21 14:03 02/23/21 14:20 Temperature 97.5 F L Pulse Rate 58 L 57 L 77 Respiratory Rate 17 26 H Blood Pressure 152/70 H 119/60 Pulse Oximetry 93 98 77 L 02/23/21 14:30 02/23/21 15:00 02/23/21 15:17 Temperature Pulse Rate 68 81 61 Respiratory Rate 25 H 25 H 32 H Blood Pressure 116/56 L 121/59 L Pulse Oximetry 88 L 96 97 02/23/21 15:21 02/23/21 15:30 02/23/21 16:00 Temperature Pulse Rate 71 56 L 54 L Respiratory Rate 30 H 32 H 32 H Blood Pressure 137/60 135/60 131/63 Pulse Oximetry 94 90 L 95 02/23/21 16:30 Temperature Pulse Rate 54 L Respiratory Rate 31 H Blood Pressure 121/60 Pulse Oximetry 88 L MDM - SOB/Dyspnea Lab Data Result diagrams: 02/23/21 14:40 02/23/21 14:40 Labs: Lab Results 02/23/21 02/23/21 02/23/21 Range/Units 14:24 14:24 14:32 WBC (4.5-11.0) X10^3/uL RBC (4.5-5.9) X10^6/uL Hgb (13.5-17.5) g/dL Hct (41-53) % MCV (80-100) fL MCH (26-34) PG MCHC (30-36) % RDW (11.6-14.8) % Plt Count (150-400) X10^3/uL Neut % (Auto) (50-75) % Lymph % (Auto) (25-40) % [place] % (Auto) (3-14) % Eos % (Auto) (2-4) % Baso % (Auto) (0-2) % Neut # (Auto) (1102-9713) /uL Lymph # (Auto) (2420-8686) /uL [place] # (Auto) (0-900) /uL Eos # (Auto) (0-450) /uL Baso # (Auto) (0-100) /uL ESR (0-15) MM/HR PT (10.1-12.7) SECONDS INR (0.9-1.3) ABG pH (7.35-7.45) ABG pCO2 (35-45) mmHg ABG pO2 (80-100) mmHg ABG HCO3 (22-26) mmol/L ABG Total CO2 (21-31) mmol/L ABG O2 Saturation (95-100) % ABG Base Excess (-2-2) mmol/L FiO2 Sodium (137-145) mmol/L Potassium (3.4-5.1) mmol/L Chloride (98-107) mmol/L Carbon Dioxide (22-32) mmol/L BUN (9-20) mg/dL Creatinine (0.66-1.25) mg/dL Estimated GFR (>60) mL/min BUN/Creatinine Ratio (6-22) Glucose (80-110) mg/dL Lactate (0.7-2.1) mmol/L Calcium (8.4-10.2) mg/dL Magnesium (1.6-2.3) mg/dL Total Bilirubin (0.2-1.3) mg/dL AST (17-59) IU/L ALT (<50) IU/L Alkaline Phosphatase (38-126) U/L Total Creatine Kinase 57 (55-170) U/L CK-MB (CK-2) TNP CK-MB (CK-2) Rel Index TNP Troponin I 0.036 H (0.01-0.034) ng/mL C-Reactive Protein (<1.0) mg/dL NT-Pro-B Natriuret Pep 59556 H (<450) pg/mL Total Protein (6.3-8.2) g/dL Albumin (3.5-5.0) g/dL Globulin (1.7-4.1) g/dL Albumin/Globulin Ratio (1.0-2.8) Procalcitonin (<0.5) ng/mL Chlamy pneumoniae PCR Not detected (Not Detect) Adenovirus (PCR) Not detected (Not Detect) B. pertussis DNA (PCR) Not detected (Not Detecte) B.parapertussis DNA PCR Not detected (Not Detecte) Coronavirus OC43 (PCR) Not detected (Not Detect) Coronavirus HKU1 (PCR) Not detected (Not Detect) Coronavirus 229E (PCR) Not detected (Not Detect) SARS-CoV-2 (PCR) Negative Not detected (Negative) Coronavirus NL63 (PCR) Not detected (Not Detect) Human Metapneumovir PCR Not detected (Not Detect) Influenza Type A (PCR) Not detected (Not Detect) Influenza Type B (PCR) Not detected (Not Detect) M. pneumoniae (PCR) Not detected (Not Detect) Parainfluenza 1 (PCR) Not detected (Not Detect) Parainfluenza 2 (PCR) Not detected (Not Detect) Parainfluenza 3 (PCR) Not detected (Not Detect) Parainfluenza 4 (PCR) Not detected (Not Detect) RSV (PCR) Not detected (Not Detect) Entero/Rhino (PCR) Not detected (Not Detect) 02/23/21 02/23/21 02/23/21 Range/Units 14:40 14:40 14:40 WBC 7.4 (4.5-11.0) X10^3/uL RBC 3.65 L (4.5-5.9) X10^6/uL Hgb 10.4 L (13.5-17.5) g/dL Hct 33.5 L (41-53) % MCV 91.9 (80-100) fL MCH 28.6 (26-34) PG MCHC 31.1 (30-36) % RDW 17.3 H (11.6-14.8) % Plt Count 162 (150-400) X10^3/uL Neut % (Auto) 81.5 H (50-75) % Lymph % (Auto) 5.5 L (25-40) % [place] % (Auto) 8.6 (3-14) % Eos % (Auto) 3.2 (2-4) % Baso % (Auto) 1.2 (0-2) % Neut # (Auto) 6000 (2124-8525) /uL Lymph # (Auto) 400 L (1760-9758) /uL [place] # (Auto) 600 (0-900) /uL Eos # (Auto) 200 (0-450) /uL Baso # (Auto) 100 (0-100) /uL ESR (0-15) MM/HR PT (10.1-12.7) SECONDS INR (0.9-1.3) ABG pH (7.35-7.45) ABG pCO2 (35-45) mmHg ABG pO2 (80-100) mmHg ABG HCO3 (22-26) mmol/L ABG Total CO2 (21-31) mmol/L ABG O2 Saturation (95-100) % ABG Base Excess (-2-2) mmol/L FiO2 Sodium 141 (137-145) mmol/L Potassium 5.0 (3.4-5.1) mmol/L Chloride 109 H (98-107) mmol/L Carbon Dioxide 28 (22-32) mmol/L BUN 41 H (9-20) mg/dL Creatinine 2.23 H (0.66-1.25) mg/dL Estimated GFR 28.3 L (>60) mL/min BUN/Creatinine Ratio 18.4 (6-22) Glucose 117 H (80-110) mg/dL Lactate 2.1 (0.7-2.1) mmol/L Calcium 8.7 (8.4-10.2) mg/dL Magnesium (1.6-2.3) mg/dL Total Bilirubin 0.6 (0.2-1.3) mg/dL AST 26 (17-59) IU/L ALT 17 (<50) IU/L Alkaline Phosphatase 149 H (38-126) U/L Total Creatine Kinase (55-170) U/L CK-MB (CK-2) CK-MB (CK-2) Rel Index Troponin I (0.01-0.034) ng/mL C-Reactive Protein (<1.0) mg/dL NT-Pro-B Natriuret Pep (<450) pg/mL Total Protein 7.1 (6.3-8.2) g/dL Albumin 3.5 (3.5-5.0) g/dL Globulin 3.6 (1.7-4.1) g/dL Albumin/Globulin Ratio 1.0 (1.0-2.8) Procalcitonin 0.11 (<0.5) ng/mL Chlamy pneumoniae PCR (Not Detect) Adenovirus (PCR) (Not Detect) B. pertussis DNA (PCR) (Not Detecte) B.parapertussis DNA PCR (Not Detecte) Coronavirus OC43 (PCR) (Not Detect) Coronavirus HKU1 (PCR) (Not Detect) Coronavirus 229E (PCR) (Not Detect) SARS-CoV-2 (PCR) (Negative) Coronavirus NL63 (PCR) (Not Detect) Human Metapneumovir PCR (Not Detect) Influenza Type A (PCR) (Not Detect) Influenza Type B (PCR) (Not Detect) M. pneumoniae (PCR) (Not Detect) Parainfluenza 1 (PCR) (Not Detect) Parainfluenza 2 (PCR) (Not Detect) Parainfluenza 3 (PCR) (Not Detect) Parainfluenza 4 (PCR) (Not Detect) RSV (PCR) (Not Detect) Entero/Rhino (PCR) (Not Detect) 02/23/21 02/23/21 02/23/21 Range/Units 14:40 14:40 15:11 WBC (4.5-11.0) X10^3/uL RBC (4.5-5.9) X10^6/uL Hgb (13.5-17.5) g/dL Hct (41-53) % MCV (80-100) fL MCH (26-34) PG MCHC (30-36) % RDW (11.6-14.8) % Plt Count (150-400) X10^3/uL Neut % (Auto) (50-75) % Lymph % (Auto) (25-40) % [place] % (Auto) (3-14) % Eos % (Auto) (2-4) % Baso % (Auto) (0-2) % Neut # (Auto) (8117-1522) /uL Lymph # (Auto) (4963-7917) /uL [place] # (Auto) (0-900) /uL Eos # (Auto) (0-450) /uL Baso # (Auto) (0-100) /uL ESR (0-15) MM/HR PT 42.4 H (10.1-12.7) SECONDS INR 3.7 H (0.9-1.3) ABG pH 7.37 (7.35-7.45) ABG pCO2 42.1 (35-45) mmHg ABG pO2 60 L (80-100) mmHg ABG HCO3 25 (22-26) mmol/L ABG Total CO2 26 (21-31) mmol/L ABG O2 Saturation 90 L (95-100) % ABG Base Excess -1.0 (-2-2) mmol/L FiO2 100 Sodium (137-145) mmol/L Potassium (3.4-5.1) mmol/L Chloride (98-107) mmol/L Carbon Dioxide (22-32) mmol/L BUN (9-20) mg/dL Creatinine (0.66-1.25) mg/dL Estimated GFR (>60) mL/min BUN/Creatinine Ratio (6-22) Glucose (80-110) mg/dL Lactate (0.7-2.1) mmol/L Calcium (8.4-10.2) mg/dL Magnesium 2.1 (1.6-2.3) mg/dL Total Bilirubin (0.2-1.3) mg/dL AST (17-59) IU/L ALT (<50) IU/L Alkaline Phosphatase (38-126) U/L Total Creatine Kinase (55-170) U/L CK-MB (CK-2) CK-MB (CK-2) Rel Index Troponin I (0.01-0.034) ng/mL C-Reactive Protein (<1.0) mg/dL NT-Pro-B Natriuret Pep (<450) pg/mL Total Protein (6.3-8.2) g/dL Albumin (3.5-5.0) g/dL Globulin (1.7-4.1) g/dL Albumin/Globulin Ratio (1.0-2.8) Procalcitonin (<0.5) ng/mL Chlamy pneumoniae PCR (Not Detect) Adenovirus (PCR) (Not Detect) B. pertussis DNA (PCR) (Not Detecte) B.parapertussis DNA PCR (Not Detecte) Coronavirus OC43 (PCR) (Not Detect) Coronavirus HKU1 (PCR) (Not Detect) Coronavirus 229E (PCR) (Not Detect) SARS-CoV-2 (PCR) (Negative) Coronavirus NL63 (PCR) (Not Detect) Human Metapneumovir PCR (Not Detect) Influenza Type A (PCR) (Not Detect) Influenza Type B (PCR) (Not Detect) M. pneumoniae (PCR) (Not Detect) Parainfluenza 1 (PCR) (Not Detect) Parainfluenza 2 (PCR) (Not Detect) Parainfluenza 3 (PCR) (Not Detect) Parainfluenza 4 (PCR) (Not Detect) RSV (PCR) (Not Detect) Entero/Rhino (PCR) (Not Detect) 02/23/21 02/23/21 Range/Units 15:27 15:27 WBC (4.5-11.0) X10^3/uL RBC (4.5-5.9) X10^6/uL Hgb (13.5-17.5) g/dL Hct (41-53) % MCV (80-100) fL MCH (26-34) PG MCHC (30-36) % RDW (11.6-14.8) % Plt Count (150-400) X10^3/uL Neut % (Auto) (50-75) % Lymph % (Auto) (25-40) % [place] % (Auto) (3-14) % Eos % (Auto) (2-4) % Baso % (Auto) (0-2) % Neut # (Auto) (5677-0340) /uL Lymph # (Auto) (9485-0198) /uL [place] # (Auto) (0-900) /uL Eos # (Auto) (0-450) /uL Baso # (Auto) (0-100) /uL ESR 44 H (0-15) MM/HR PT (10.1-12.7) SECONDS INR (0.9-1.3) ABG pH (7.35-7.45) ABG pCO2 (35-45) mmHg ABG pO2 (80-100) mmHg ABG HCO3 (22-26) mmol/L ABG Total CO2 (21-31) mmol/L ABG O2 Saturation (95-100) % ABG Base Excess (-2-2) mmol/L FiO2 Sodium (137-145) mmol/L Potassium (3.4-5.1) mmol/L Chloride (98-107) mmol/L Carbon Dioxide (22-32) mmol/L BUN (9-20) mg/dL Creatinine (0.66-1.25) mg/dL Estimated GFR (>60) mL/min BUN/Creatinine Ratio (6-22) Glucose (80-110) mg/dL Lactate (0.7-2.1) mmol/L Calcium (8.4-10.2) mg/dL Magnesium (1.6-2.3) mg/dL Total Bilirubin (0.2-1.3) mg/dL AST (17-59) IU/L ALT (<50) IU/L Alkaline Phosphatase (38-126) U/L Total Creatine Kinase (55-170) U/L CK-MB (CK-2) CK-MB (CK-2) Rel Index Troponin I (0.01-0.034) ng/mL C-Reactive Protein 2.6 H (<1.0) mg/dL NT-Pro-B Natriuret Pep (<450) pg/mL Total Protein (6.3-8.2) g/dL Albumin (3.5-5.0) g/dL Globulin (1.7-4.1) g/dL Albumin/Globulin Ratio (1.0-2.8) Procalcitonin (<0.5) ng/mL Chlamy pneumoniae PCR (Not Detect) Adenovirus (PCR) (Not Detect) B. pertussis DNA (PCR) (Not Detecte) B.parapertussis DNA PCR (Not Detecte) Coronavirus OC43 (PCR) (Not Detect) Coronavirus HKU1 (PCR) (Not Detect) Coronavirus 229E (PCR) (Not Detect) SARS-CoV-2 (PCR) (Negative) Coronavirus NL63 (PCR) (Not Detect) Human Metapneumovir PCR (Not Detect) Influenza Type A (PCR) (Not Detect) Influenza Type B (PCR) (Not Detect) M. pneumoniae (PCR) (Not Detect) Parainfluenza 1 (PCR) (Not Detect) Parainfluenza 2 (PCR) (Not Detect) Parainfluenza 3 (PCR) (Not Detect) Parainfluenza 4 (PCR) (Not Detect) RSV (PCR) (Not Detect) Entero/Rhino (PCR) (Not Detect) ABG Data ABG results: Patient has acute hypoxic respiratory failure with a PaO2 of 60 on 100% non-rebreather. Ph 7.37 with a pCO2 42 and a bicarb of 24. Oxygen saturation is 90% on pulse ox. Attestation: I personally reviewed and interpreted this ABG as follows: Interpretation: Acute hypoxic respiratory failure, patient pH is appropriate. Imaging Data Chest x-ray: Radiologist's Impression: [address] [id number] XRay Report Signed Patient: Karlos Argueta MR#: [id number] : 1935 Acct:[id number] Age/Sex: 85 / M Date of Service: 02/23/21 Loc: ED Accession Number: [id number] ?? Procedure: XR chest 1V Ordering Provider: Terry Estrada P.A-C PROCEDURE:? XR CHEST 1V ? INDICATIONS:? SOB ? TECHNIQUE:? One view of the chest was acquired.? ? COMPARISON:? None. ? FINDINGS:? ? Surgical changes and devices:? None.? ? Lungs and pleura: Increased interstitial markings in both lungs. Small right pleural effusion with overlying airspace disease. No pleural effusions or pneumothorax.? ? Mediastinum:? Mediastinal contours appear normal.? Cardiomegaly.? ? Bones and chest wall:? No suspicious bony lesions.? Overlying soft tissues appear unremarkable.? ? IMPRESSION:? Cardiomegaly with increased interstitial markings and small right pleural effusion with overlying airspace disease. Findings likely due to pulmonary edema. ? Dictated by: Merrick Buenrostro M.D. on 02/23/2021 at 15:10 ? ? Approved by: Merrick Buenrostro M.D. on 02/23/2021 at 15:13?? ECG Data Attestation: I personally reviewed and interpreted this ECG as follows: Interpretation: Bradycardia rate of 57 QRS of 114 QTC of 406. Patient has depression in lateral leads. T-wave in lead 3 and AVF. No elevation. MDM Narrative Medical decision making narrative: This is an 85-year-old male who comes with initially concern for right ankle infection, patient is hypoxic requiring significant increase in his O2 he appears fluid overloaded with known lung cancer. His labs reflect CHF, evidence with changes on his chest x-ray as well. Patient is hypoxic on his ABG but without any CO2 retention, alkalosis or acidosis. Patient does have a wound that is actively draining with surrounding cellulitis and was started on IV antibiotics. Plan for Lasix. Patient does not wish to be intubated, he does not wish for her road measures this was clarified with himself and his . He is not actively wheezing so no albuterol was given. There was discussion about PE study as patient is hypoxic in the setting of known lung cancer but his renal function is increased moderately from priors. After discussion with hospitalist who also saw the patient this was deferred as patient has several additional other causes a mildly supratherapeutic INR which makes this much less likely. Critical Care Time Critical Care Time Critical Care Time: Yes Total Critical Care Time: 45 Attestation: The high probability of a clinically significant, sudden or life threatening deterioration of the [cardiac, pulm] system(s) required my full and direct attention, intervention and personal management. The aggregate critical care time was [] minutes. This time is in addition to time spent performing reported procedures but includes the following: [x] Data Review and interpretation [x] Patient assessment and monitoring of vital signs [x] Documentation [x] Medication orders and management Discharge Plan Departure Patient Disposition: Admitted As Inpatient Clinical Impression: CHF (congestive heart failure), Lung cancer, Acute and chronic respiratory failure with hypoxia, Ankle wound, Cellulitis of lower extremity Admit Date/Time: 02/23/21 16:43 Admit Provider: Mo Moe
[2021-02-23 15:22] LABS: NT-proBNP (BNP-Adult 18+) 18200 pg/mL (<450); Troponin I 0.036 ng/mL (0.01-0.034)
[2021-02-23 15:38] LABS: C-Reactive Protein Quant 2.6 mg/dL (<1.0)
[2021-02-23 15:49] LABS: Adenovirus Not Detected (Not Detect); B. parapertussis Not Detected (Not Detecte); Bordetella pertussis Not Detected (Not Detecte); Chlamydophila pneumoniae Not Detected (Not Detect); Coronavirus 229E Not Detected (Not Detect); Coronavirus HKU1 Not Detected (Not Detect); Coronavirus NL 63 Not Detected (Not Detect); Coronavirus OC43 Not Detected (Not Detect); Human Metapneumovirus Not Detected (Not Detect); Human Rhinovirus/Enterovirus Not Detected (Not Detect); Influenza A Not Detected (Not Detect); Influenza B Not Detected (Not Detect); Mycoplasma pneumoniae Not Detected (Not Detect); Parainfluenza Virus 1 Not Detected (Not Detect); Parainfluenza Virus 2 Not Detected (Not Detect); Parainfluenza Virus 3 Not Detected (Not Detect); Parainfluenza Virus 4 Not Detected (Not Detect); Respiratory Syncytial Virus Not Detected (Not Detect); SARS- CoV-2 Not Detected (Not Detecte)
[2021-02-23 15:51] LABS: Erythrocyte Sedimentation Rate 44 MM/HR (0-15)
[2021-02-23] MEDS: CLINDAMYCIN 900 MG/50 ML PIGGYBACK 50 MG IV (16:06)
[2021-02-23 16:13] LABS: HCO3 ABG 25 mmol/L (22-26); Oxygen Saturation ABG 90 % (95-100); PCO2 ABG 42.1 mmHg (35-45); PO2 ABG 60 mmHg (80-100); TCO2 ABG 26 mmol/L (21-31); pH ABG 7.37 (7.35-7.45)
[2021-02-23 16:14] LABS: Fractionated Inspired Oxygen 100
[2021-02-23 16:47] LABS: Reflexed Lactate in 2 Hours Y
[2021-02-23] MEDS: FUROSEMIDE 100 MG/10 ML VIAL 80 MG IV (16:50)
--- NOTE | 2021-02-23 17:02 | DI.US.S_ITS ---
PROCEDURE: US ABDOMEN LIMITED INDICATIONS: eval for ascites? TECHNIQUE: Real-time focused scanning was performed of the abdomen, with image documentation. COMPARISON: None. FINDINGS: Nhie-ho-umumierf mount of ascites is present. IMPRESSION: Utpy-oo-lhlrkatj ascites. Dictated by: Suzi Parker M.D. on 02/23/2021 at 17:39 Approved by: Suzi Parker M.D. on 02/23/2021 at 17:39
--- NOTE | 2021-02-23 17:03 | DI.ECHO.S_ITS ---
[facility]---------+ [facility] +---------+ : : [address] : : : : [id number] : : : : Phone: [phone]+ Echocardiogram Report + + :Name: OUMOU LOVE Study Date: 02/24/2021 Height: 72 in : :[facility] ReadingLocation: Weight: 188 lb: : Gender: Male BSA: 2.1 m2 : :: 1935 Age: 85 yrs : :Reason For Study: CHF : : Performed By: BEBETO CARPENTER : :Referring: VINCE CHING : + + Interpretation Summary The left ventricle is normal in size. Left ventricular ejection fraction is estimated to be 50 +/- 5%. The interventricular septum is flattened, consistent with a right ventricular pressure/volume condition. The right ventricle is severely dilated. There has been no significant change since the previous study. Right ventricular systolic function is moderately reduced. The interatrial septum bows toward right atrium consistent with elevated left atrial pressure. There is mild to moderate mitral regurgitation. Compared to the prior echo study, there has been an increase in the severity of mitral regurgitation. There is mild to moderate aortic regurgitation. Compared to the prior echo study, there has been an increase in the severity of aortic regurgitation. The tricuspid annulus is dilated. There is severe tricuspid regurgitation. Previously moderate to severe TR. Compared to the prior echo exam, there has been an increase in TR severity. The right ventricular systolic pressure is estimated to be at least 95 mmHg based on an estimated right atrial pressure of 8 mm Hg. Previously it was 88 mmHg. There is severe pulmonary hypertension. Procedure: A two-dimensional transthoracic echocardiogram with color flow and Doppler was performed. The study quality was technically adequate. The apical views were difficult to obtain and are suboptimal in quality. The suprasternal notch views were difficult to obtain and are suboptimal in quality. Comparison is made with the echocardiogram of 03/04/2017. The patient had occasional PVCs during the exam. The patient was in atrial fibrillation with controlled ventricular rate during the exam. Left Ventricle: The left ventricle is normal in size. Left ventricular wall thickness is mildly increased. There is no thrombus. Left ventricular ejection fraction is estimated to be 50 +/- 5%. The interventricular septum is flattened, consistent with a right ventricular pressure/volume condition. There is a mild dyssynchronous contraction pattern, consistent with a conduction abnormality. E/E' med: 9.7. Right Ventricle: The right ventricle is severely dilated. There has been no significant change since the previous study. Right ventricular systolic function is moderately reduced. Atria: The left atrium is severely dilated. Both atria have remained unchanged in size since the prior echo exam. The right atrium is severely dilated. There is no Doppler evidence for an interatrial shunt. The atrial septum is aneurysmal. The interatrial septum bows toward right atrium consistent with elevated left atrial pressure. Mitral Valve: The mitral valve leaflets appear borderline thickened, but open well. There is mild mitral annular calcification. The mitral valve leaflets are mildly calcified. There is mild to moderate mitral regurgitation. Compared to the prior echo study, there has been an increase in the severity of mitral regurgitation. Aortic Valve: The aortic valve is trileaflet. The aortic valve opens well. The aortic valve is slightly calcified. There is mild to moderate aortic regurgitation. Compared to the prior echo study, there has been an increase in the severity of aortic regurgitation. Tricuspid Valve: The tricuspid annulus is dilated. There is severe tricuspid regurgitation. The right ventricular systolic pressure is estimated to be at least 95 mmHg based on an estimated right atrial pressure of 8 mm Hg. Compared to the prior echo exam, there has been an increase in TR severity. There is severe pulmonary hypertension. Pulmonic Valve: The pulmonic valve leaflets are thin and pliable; valve motion is normal. There is trace pulmonic regurgitation. Great Vessels: The aortic root is normal size. The ascending aorta is normal in size. The aortic arch could not be visualized. The IVC is dilated (diameter is greater than 2.1 cm) yet it collapses greater than 50% with a sniff. This suggests a right atrial pressure of 8 mm Hg. Pericardium/ Pleura There is a trace loculated pericardial effusion. There is an anterior echo-free space consistent with a fat pad. There is no pleural effusion. MMode/2D Measurements & Calculations LVIDd: 4.8 cm LVOT diam: 1.9 cm LVIDs: 3.6 cm Ao root diam: 4.0 cm FS: 24.2 % asc Aorta Diam: 3.6 cm IVSd: 1.00 cm LVPWd: 1.2 cm LV dueñas. diameter/BSA (cm/m^2): 2.3 LV sys. diameter/BSA (cm/m^2): 1.8 LA A2 area: 38.1 cm2 RA long axis: 9.1 cm LA A4 area: 31.9 cm2 RA area: 54.3 cm2 LA length (vol): 8.1 cm RA vol: 273.5 ml LA vol: 128.3 ml RA : 131.8 ml/m2 LA vol index: 61.8 ml/m2 IVC diam: 3.0 cm RVD1 (basal): 7.4 cm TAPSE: 1.6 cm Doppler Measurements & Calculations Ao V2 max: 122.9 cm/sec LVOT Max Codey: 62.2 cm/sec Ao V2 mean: 81.5 cm/sec LV V1 max P.5 mmHg Ao max P.0 mmHg LV V1 VTI: 13.7 cm Ao mean P.9 mmHg MILANA(I,D): 1.4 cm2 Ao V2 VTI: 26.7 cm MILANA(V,D): 1.4 cm2 sev ratio: 0.52 MILANA indexed to BSA (cm^2/m^2): 0.68 MV E max codey: 67.1 cm/sec TR max codey: 465.5 cm/sec Med Peak E' Codey: 6.9 cm/sec TR max P.7 mmHg E/E' med: 9.7 Lat Peak E' Codey: 10.0 cm/sec E/E' lat: 6.7 E/e' average: 8.2 MV dec time: 0.22 sec SV(LVOT): 37.5 ml Reading Physician:02:45 PM
[2021-02-23] MEDS: CEFAZOLIN 1 GM VIAL IV (17:49)
[2021-02-23 19:29] LABS: Lactate 2HR (Lactic Acid Rflx) 1.7 mmol/L (0.7-2.1)
--- NOTE | 2021-02-23 20:15 | P.HP_ITS ---
History of Present Illness History of Present Illness Date Patient Seen: 02/23/21 Time Patient Seen: 17:00 Chief complaint: Wound On Rt Leg, Infected Narrative: Mr. Argueta is an 85M with PMH lung cancer not on treatment with chronic respiratory failure on 5L O2, CHFrEF with severe tricuspid regurigtation, pulmonary hypertension, COPD, afib, HTN who comes to the hospital initially with concern for ulcer and infection on right leg, but found to be hypoxemic. His wif e states that the last treatment he had for his lung cancer was in October,. Since then has been off treatment. Has discussed within the last few weeks hospice with PCP. He has been chronically getting more fatigued, lethargic, wheelchair bound. He is on 5L O2 at home. He has been increasing swelling over weeks in his belly and lower extremities. Within the last three days had ulcer and erythema develop on his right leg. He came to the ED for help with this wound. He has not had cough, fevers/chills, abdominal pain, chest pain. In the ED workup was done, he was noted to be afebrile, tachypneic in the 20s, sats in the 70s on 5L, he was placed on nonrebreather. Labs notable for WBC 7.4, creatinine 2.23, troponin 0.036, BNP 96132, procalcitonin 0.11, chest xray showed pulmonary edema. Respiratory virus panel negative, COVID negative. He had ankle xray that showed no acute process. Abdominal ultrasound showed ascites. He was ordered for antibiotics and IV lasix and admitted for further treatment. Patient History Medical History (HFpEF) heart failure with preserved ejection fraction Atrial fibrillation Cataract Cirrhosis COPD (chronic obstructive pulmonary disease) (~2011) Foot pain (~2012) Hearing deficit Heart failure, systolic Hyperlipidemia Hyperparathyroidism Hypertension Ingrown toenail Lower extremity neuropathy Lung cancer (~2012) Neck pain Normal stress echocardiogram (~09/12/10) Shoulder pain Skin infection Surgical History Status post parathyroidectomy (~1982) Surgical procedure planned (~06/08/12) Family & Social History Family History Sister Hypertension Safety & Behavioral: Feels Safe in Current Yes Environment Been Physically Hurt or No Threatened By a Person Tobacco & Substance use: Smoking Status Former smoker Substance Use Type does not use Meds Home Medications and Allergies Home Medications Medication Instructions Recorded Confirmed Type digoxin 250 mcg (0.25 mg) tablet 0.125 mg PO QDAY #0 10/29/12 02/05/21 History (Lanoxin) albuterol sulfate 90 mcg/actuation 1 puff INH Q4HP PRN #1 ea 09/03/17 02/05/21 Rx aerosol inhaler (Ventolin HFA) metoprolol succinate 200 mg 200 mg PO QDAY #90 tab 02/09/18 02/05/21 Rx tablet,extended release 24 hr (Toprol XL) lidocaine 5 % topical patch 1 patch TOP DAILY #30 each 02/14/20 02/05/21 Rx furosemide 20 mg tablet (Lasix) 20 mg PO QDAY tab 05/23/20 02/05/21 History gabapentin 300 mg capsule 300 mg PO BEDTIME #90 cap 09/11/20 02/05/21 Rx ciclopirox 8 % topical solution 1 applic TOPICAL BEDTIME 28 Days 10/09/20 02/05/21 Rx #6.6 ml Handicap Placard #1 ea 11/15/20 02/05/21 Rx losartan 50 mg tablet See Rx Instructions .ROUTE 01/10/21 02/05/21 Rx .COMPLEX #90 tab warfarin 5 mg tablet See Rx Instructions PO DAILY #90 02/08/21 02/08/21 Rx tab Allergies Allergy/AdvReac Type Severity Reaction Status Date / Time Penicillins Allergy Mild RASH Verified 02/05/21 14:53 Review of Systems Review of Systems Narrative: 14 systems reviewed and negative aside from what is noted in HPI Exam Vital Signs (past 8 hours): - 02/23/21 14:02 02/23/21 14:03 02/23/21 14:20 Temperature 97.5 F L Pulse Rate 58 L 57 L 77 Respiratory Rate 17 26 H Blood Pressure 152/70 H 119/60 Pulse Oximetry 93 98 77 L 02/23/21 14:30 02/23/21 15:00 02/23/21 15:17 Temperature Pulse Rate 68 81 61 Respiratory Rate 25 H 25 H 32 H Blood Pressure 116/56 L 121/59 L Pulse Oximetry 88 L 96 97 02/23/21 15:21 02/23/21 15:30 02/23/21 16:00 Temperature Pulse Rate 71 56 L 54 L Respiratory Rate 30 H 32 H 32 H Blood Pressure 137/60 135/60 131/63 Pulse Oximetry 94 90 L 95 02/23/21 16:30 02/23/21 17:00 02/23/21 17:35 Temperature 97.0 F L Pulse Rate 54 L 55 L 60 Respiratory Rate 31 H 20 16 Blood Pressure 121/60 121/59 L 124/59 L Pulse Oximetry 88 L 86 L 70 L 02/23/21 18:13 02/23/21 18:26 Temperature Pulse Rate 44 L Respiratory Rate 16 Blood Pressure 124/59 L Pulse Oximetry 95 88 L Fraction of Inspired Oxygen 56 Oxygen Delivery Method Heated High Flow Oxygen Flow Rate 50 Narrative Exam Narrative: GEN: no acute distress HEENT: PERRL, moist mucous membranes CV: bradycardic, irregular, systolic murmurs PULM: crackles bilaterally, no wheezes ABD: soft, nontender, distended, normal bowel sounds, no organomegaly EXT: 3+ pitting edema SKIN: ulcer noted on right leg with surrounding erythema that is demarcated NEURO: awake and alert, no focal deficits, moving all extremities Objective Labs Result Diagrams: 02/23/21 14:40 02/23/21 14:40 Labs: Laboratory Results - last 24 hr 02/23/21 02/23/21 02/23/21 14:24 14:24 14:32 WBC RBC Hgb Hct MCV MCH MCHC RDW Plt Count Neut % (Auto) Lymph % (Auto) Towner % (Auto) Eos % (Auto) Baso % (Auto) Neut # (Auto) Lymph # (Auto) Towner # (Auto) Eos # (Auto) Baso # (Auto) ESR PT INR ABG pH ABG pCO2 ABG pO2 ABG HCO3 ABG Total CO2 ABG O2 Saturation ABG Base Excess FiO2 Sodium Potassium Chloride Carbon Dioxide BUN Creatinine Estimated GFR BUN/Creatinine Ratio Glucose Lactate Calcium Magnesium Total Bilirubin AST ALT Alkaline Phosphatase Total Creatine Kinase 57 CK-MB (CK-2) TNP CK-MB (CK-2) Rel Index TNP Troponin I 0.036 H C-Reactive Protein NT-Pro-B Natriuret Pep 44465 H Total Protein Albumin Globulin Albumin/Globulin Ratio Procalcitonin Nasal Screen MRSA (PCR) Chlamy pneumoniae PCR Not detected Adenovirus (PCR) Not detected B. pertussis DNA (PCR) Not detected B.parapertussis DNA PCR Not detected Coronavirus OC43 (PCR) Not detected Coronavirus HKU1 (PCR) Not detected Coronavirus 229E (PCR) Not detected SARS-CoV-2 (PCR) Negative Not detected Coronavirus NL63 (PCR) Not detected Human Metapneumovir PCR Not detected Influenza Type A (PCR) Not detected Influenza Type B (PCR) Not detected M. pneumoniae (PCR) Not detected Parainfluenza 1 (PCR) Not detected Parainfluenza 2 (PCR) Not detected Parainfluenza 3 (PCR) Not detected Parainfluenza 4 (PCR) Not detected RSV (PCR) Not detected Entero/Rhino (PCR) Not detected 02/23/21 02/23/21 02/23/21 14:40 14:40 14:40 WBC 7.4 RBC 3.65 L Hgb 10.4 L Hct 33.5 L MCV 91.9 MCH 28.6 MCHC 31.1 RDW 17.3 H Plt Count 162 Neut % (Auto) 81.5 H Lymph % (Auto) 5.5 L Towner % (Auto) 8.6 Eos % (Auto) 3.2 Baso % (Auto) 1.2 Neut # (Auto) 6000 Lymph # (Auto) 400 L Towner # (Auto) 600 Eos # (Auto) 200 Baso # (Auto) 100 ESR PT INR ABG pH ABG pCO2 ABG pO2 ABG HCO3 ABG Total CO2 ABG O2 Saturation ABG Base Excess FiO2 Sodium 141 Potassium 5.0 Chloride 109 H Carbon Dioxide 28 BUN 41 H Creatinine 2.23 H Estimated GFR 28.3 L BUN/Creatinine Ratio 18.4 Glucose 117 H Lactate 2.1 Calcium 8.7 Magnesium Total Bilirubin 0.6 AST 26 ALT 17 Alkaline Phosphatase 149 H Total Creatine Kinase CK-MB (CK-2) CK-MB (CK-2) Rel Index Troponin I C-Reactive Protein NT-Pro-B Natriuret Pep Total Protein 7.1 Albumin 3.5 Globulin 3.6 Albumin/Globulin Ratio 1.0 Procalcitonin 0.11 Nasal Screen MRSA (PCR) Chlamy pneumoniae PCR Adenovirus (PCR) B. pertussis DNA (PCR) B.parapertussis DNA PCR Coronavirus OC43 (PCR) Coronavirus HKU1 (PCR) Coronavirus 229E (PCR) SARS-CoV-2 (PCR) Coronavirus NL63 (PCR) Human Metapneumovir PCR Influenza Type A (PCR) Influenza Type B (PCR) M. pneumoniae (PCR) Parainfluenza 1 (PCR) Parainfluenza 2 (PCR) Parainfluenza 3 (PCR) Parainfluenza 4 (PCR) RSV (PCR) Entero/Rhino (PCR) 02/23/21 02/23/21 02/23/21 14:40 14:40 15:11 WBC RBC Hgb Hct MCV MCH MCHC RDW Plt Count Neut % (Auto) Lymph % (Auto) Towner % (Auto) Eos % (Auto) Baso % (Auto) Neut # (Auto) Lymph # (Auto) Towner # (Auto) Eos # (Auto) Baso # (Auto) ESR PT 42.4 H INR 3.7 H ABG pH 7.37 ABG pCO2 42.1 ABG pO2 60 L ABG HCO3 25 ABG Total CO2 26 ABG O2 Saturation 90 L ABG Base Excess -1.0 FiO2 100 Sodium Potassium Chloride Carbon Dioxide BUN Creatinine Estimated GFR BUN/Creatinine Ratio Glucose Lactate Calcium Magnesium 2.1 Total Bilirubin AST ALT Alkaline Phosphatase Total Creatine Kinase CK-MB (CK-2) CK-MB (CK-2) Rel Index Troponin I C-Reactive Protein NT-Pro-B Natriuret Pep Total Protein Albumin Globulin Albumin/Globulin Ratio Procalcitonin Nasal Screen MRSA (PCR) Chlamy pneumoniae PCR Adenovirus (PCR) B. pertussis DNA (PCR) B.parapertussis DNA PCR Coronavirus OC43 (PCR) Coronavirus HKU1 (PCR) Coronavirus 229E (PCR) SARS-CoV-2 (PCR) Coronavirus NL63 (PCR) Human Metapneumovir PCR Influenza Type A (PCR) Influenza Type B (PCR) M. pneumoniae (PCR) Parainfluenza 1 (PCR) Parainfluenza 2 (PCR) Parainfluenza 3 (PCR) Parainfluenza 4 (PCR) RSV (PCR) Entero/Rhino (PCR) 02/23/21 02/23/21 02/23/21 15:27 15:27 18:09 WBC RBC Hgb Hct MCV MCH MCHC RDW Plt Count Neut % (Auto) Lymph % (Auto) Towner % (Auto) Eos % (Auto) Baso % (Auto) Neut # (Auto) Lymph # (Auto) Towner # (Auto) Eos # (Auto) Baso # (Auto) ESR 44 H PT INR ABG pH ABG pCO2 ABG pO2 ABG HCO3 ABG Total CO2 ABG O2 Saturation ABG Base Excess FiO2 Sodium Potassium Chloride Carbon Dioxide BUN Creatinine Estimated GFR BUN/Creatinine Ratio Glucose Lactate Calcium Magnesium Total Bilirubin AST ALT Alkaline Phosphatase Total Creatine Kinase CK-MB (CK-2) CK-MB (CK-2) Rel Index Troponin I C-Reactive Protein 2.6 H NT-Pro-B Natriuret Pep Total Protein Albumin Globulin Albumin/Globulin Ratio Procalcitonin Nasal Screen MRSA (PCR) Negative for mrsa Chlamy pneumoniae PCR Adenovirus (PCR) B. pertussis DNA (PCR) B.parapertussis DNA PCR Coronavirus OC43 (PCR) Coronavirus HKU1 (PCR) Coronavirus 229E (PCR) SARS-CoV-2 (PCR) Coronavirus NL63 (PCR) Human Metapneumovir PCR Influenza Type A (PCR) Influenza Type B (PCR) M. pneumoniae (PCR) Parainfluenza 1 (PCR) Parainfluenza 2 (PCR) Parainfluenza 3 (PCR) Parainfluenza 4 (PCR) RSV (PCR) Entero/Rhino (PCR) 02/23/21 18:10 WBC RBC Hgb Hct MCV MCH MCHC RDW Plt Count Neut % (Auto) Lymph % (Auto) Towner % (Auto) Eos % (Auto) Baso % (Auto) Neut # (Auto) Lymph # (Auto) Towner # (Auto) Eos # (Auto) Baso # (Auto) ESR PT INR ABG pH ABG pCO2 ABG pO2 ABG HCO3 ABG Total CO2 ABG O2 Saturation ABG Base Excess FiO2 Sodium Potassium Chloride Carbon Dioxide BUN Creatinine Estimated GFR BUN/Creatinine Ratio Glucose Lactate 1.7 Calcium Magnesium Total Bilirubin AST ALT Alkaline Phosphatase Total Creatine Kinase CK-MB (CK-2) CK-MB (CK-2) Rel Index Troponin I C-Reactive Protein NT-Pro-B Natriuret Pep Total Protein Albumin Globulin Albumin/Globulin Ratio Procalcitonin Nasal Screen MRSA (PCR) Chlamy pneumoniae PCR Adenovirus (PCR) B. pertussis DNA (PCR) B.parapertussis DNA PCR Coronavirus OC43 (PCR) Coronavirus HKU1 (PCR) Coronavirus 229E (PCR) SARS-CoV-2 (PCR) Coronavirus NL63 (PCR) Human Metapneumovir PCR Influenza Type A (PCR) Influenza Type B (PCR) M. pneumoniae (PCR) Parainfluenza 1 (PCR) Parainfluenza 2 (PCR) Parainfluenza 3 (PCR) Parainfluenza 4 (PCR) RSV (PCR) Entero/Rhino (PCR) Assessment & Plan Assessment & Plan narrative: Mr. Argueta is an 85M with H lung cancer, chf, pulmonary hypertension, afib, copd, etoh cirrhosis who presents with right leg cellulitis and acute on chronic hypoxemic respiratory failure. 1. Acute on chronic hypoxemic respiratory failure due to acute systolic CHF exacerbation with pulmonary edema -normal wbc, procalcitonin, no cough, unlikely infection, covid and respiratory pcr negative -etiology is acute CHF exacerbation with pulmonary edema, lower extremity edema, and BNP>[id number] -no chest pain, trop 0.036 -doubt PE, as has clear other etiology, INR is 3.7 -started IV lasix 80mg, then start lasix 5mg/hr -recheck lytes tonight -ECHO in am 2. Atrial fibrillation -currently bradycardic -metop xl 200 at home, continue at 50mg xl for now -continue digoxin -INR 3.7, trend daily 3. COPD -not in acute exacerbation 4. Lung cancer -off checkpoint inhibitor since october -has had discussions about hospice 5. 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 Elevated troponin likely cardiac demand ischemia from CHF -initial trop 0.036 -trend troponins -doubt ACS 7. EtOH cirrhosis -decompensated with ascites on abdomen -continue diuresis as above 8. Right leg cellulitis, acute -started cefazolin -follow progress CODE: DNR/DNI, discussed with who is moving towards hospice, she understands he is unlikely to live much longer, she is ok with trying to get his respiratory status improved so he can go home, possibly with hospice Proxy: Charley Argueta, Dvt ppx: already anticoagulated with warfarin I have utilized all available immediate resources to obtain, update, or review the patient's current medications. Time Spent With Patient Critical Care time: I spent a total of [] minutes of critical care time on this patient's care today; this time is exclusive of procedural time.
--- NOTE | 2021-02-23 21:09 | PM.CN.EICU ---
History of Present Illness Consult details Chief complaint: Wound On Rt Leg, Infected :: This patient was seen via real time interactive two-way audiovisual telecommunication. Narrative: Mr. Argueta is a 85 year old male with history of lung cancer, chronic hypoxia respiratory failure, CHF, hypertension, and COPD admitted to the hospital for acute on chronic hypoxemia respiratory failure. Labs notale for elevated NT-BNP and ROSARIO on CKD. CXR showed bilateral cephalization with blunted costophrenic angles. COVID negative. He was startd on HFNC 60/90% and admitted to the acute care service. He was also given lasix 80 mg and had ~400 mL of urine output. Patient is a DNR/DNI per hospitalist discusssion with spouse. On arrival to ICU, his HFNC escalated to 100% and nib adjuster consulted for further management. [facility] Medical History (HFpEF) heart failure with preserved ejection fraction Atrial fibrillation Cataract Cirrhosis COPD (chronic obstructive pulmonary disease) (~2011) Foot pain (~2012) Hearing deficit Heart failure, systolic Hyperlipidemia Hyperparathyroidism Hypertension Ingrown toenail Lower extremity neuropathy Lung cancer (~2012) Neck pain Normal stress echocardiogram (~09/12/10) Shoulder pain Skin infection Surgical History Status post parathyroidectomy (~1982) Surgical procedure planned (~06/08/12) Family History Sister Hypertension Social History Smoking Status: Former smoker Tobacco: How many years used: 30 Current Medications Current Medications Medications: Home Medications digoxin 250 mcg (0.25 mg) tablet (Lanoxin) 0.125 mg PO QDAY #0 10/29/12 [History Confirmed 02/05/21] albuterol sulfate 90 mcg/actuation aerosol inhaler (Ventolin HFA) 1 puff INH Q4HP PRN #1 ea 09/03/17 [Rx Confirmed 02/05/21] metoprolol succinate 200 mg tablet,extended release 24 hr (Toprol XL) 200 mg PO QDAY #90 tab 02/09/18 [Rx Confirmed 02/05/21] lidocaine 5 % topical patch 1 patch TOP DAILY #30 each 02/14/20 [Rx Confirmed 02/05/21] furosemide 20 mg tablet (Lasix) 20 mg PO QDAY tab 05/23/20 [History Confirmed 02/05/21] gabapentin 300 mg capsule 300 mg PO BEDTIME #90 cap 09/11/20 [Rx Confirmed 02/05/21] ciclopirox 8 % topical solution 1 applic TOPICAL BEDTIME 28 Days #6.6 ml 10/09/20 [Rx Confirmed 02/05/21] Handicap Placard #1 ea 11/15/20 [Rx Confirmed 02/05/21] losartan 50 mg tablet See Rx Instructions .ROUTE .COMPLEX #90 tab 01/10/21 [Rx Confirmed 02/05/21] warfarin 5 mg tablet See Rx Instructions PO DAILY #90 tab 02/08/21 [Rx Confirmed 02/08/21] Visit Medications (administered) Generic Name Dose Route Start Last Admin Trade Name Irwinq PRN Reason Stop Dose Admin Cefazolin Sodium 1 gm 02/23/21 17:15 02/23/21 17:49 Cefazolin 1 Gm Vial IV 1 gm Q8H KENYATTA Administration Exam Vital Signs (past 8 hours): - 02/23/21 14:02 02/23/21 14:03 02/23/21 14:20 Temperature 97.5 F L Pulse Rate 58 L 57 L 77 Respiratory Rate 17 26 H Blood Pressure 152/70 H 119/60 Pulse Oximetry 93 98 77 L 02/23/21 14:30 02/23/21 15:00 02/23/21 15:17 Temperature Pulse Rate 68 81 61 Respiratory Rate 25 H 25 H 32 H Blood Pressure 116/56 L 121/59 L Pulse Oximetry 88 L 96 97 02/23/21 15:21 02/23/21 15:30 02/23/21 16:00 Temperature Pulse Rate 71 56 L 54 L Respiratory Rate 30 H 32 H 32 H Blood Pressure 137/60 135/60 131/63 Pulse Oximetry 94 90 L 95 02/23/21 16:30 02/23/21 17:00 02/23/21 17:35 Temperature 97.0 F L Pulse Rate 54 L 55 L 60 Respiratory Rate 31 H 20 16 Blood Pressure 121/60 121/59 L 124/59 L Pulse Oximetry 88 L 86 L 70 L 02/23/21 18:13 02/23/21 18:26 Temperature Pulse Rate 44 L Respiratory Rate 16 Blood Pressure 124/59 L Pulse Oximetry 95 88 L Fraction of Inspired Oxygen 56 Oxygen Delivery Method Heated High Flow Oxygen Flow Rate 50 Narrative Exam Narrative: Difficulty hearing. Awake and following commands. On HFNC. Objective Labs Result Diagrams: 02/23/21 14:40 02/23/21 14:40 Labs: Laboratory Results - last 24 hr 02/23/21 02/23/21 02/23/21 14:24 14:24 14:32 WBC RBC Hgb Hct MCV MCH MCHC RDW Plt Count Neut % (Auto) Lymph % (Auto) [place] % (Auto) Eos % (Auto) Baso % (Auto) Neut # (Auto) Lymph # (Auto) [place] # (Auto) Eos # (Auto) Baso # (Auto) ESR PT INR ABG pH ABG pCO2 ABG pO2 ABG HCO3 ABG Total CO2 ABG O2 Saturation ABG Base Excess FiO2 Sodium Potassium Chloride Carbon Dioxide BUN Creatinine Estimated GFR BUN/Creatinine Ratio Glucose Lactate Calcium Magnesium Total Bilirubin AST ALT Alkaline Phosphatase Total Creatine Kinase 57 CK-MB (CK-2) TNP CK-MB (CK-2) Rel Index TNP Troponin I 0.036 H C-Reactive Protein NT-Pro-B Natriuret Pep 87243 H Total Protein Albumin Globulin Albumin/Globulin Ratio Procalcitonin Nasal Screen MRSA (PCR) Chlamy pneumoniae PCR Not detected Adenovirus (PCR) Not detected B. pertussis DNA (PCR) Not detected B.parapertussis DNA PCR Not detected Coronavirus OC43 (PCR) Not detected Coronavirus HKU1 (PCR) Not detected Coronavirus 229E (PCR) Not detected SARS-CoV-2 (PCR) Negative Not detected Coronavirus NL63 (PCR) Not detected Human Metapneumovir PCR Not detected Influenza Type A (PCR) Not detected Influenza Type B (PCR) Not detected M. pneumoniae (PCR) Not detected Parainfluenza 1 (PCR) Not detected Parainfluenza 2 (PCR) Not detected Parainfluenza 3 (PCR) Not detected Parainfluenza 4 (PCR) Not detected RSV (PCR) Not detected Entero/Rhino (PCR) Not detected 02/23/21 02/23/21 02/23/21 14:40 14:40 14:40 WBC 7.4 RBC 3.65 L Hgb 10.4 L Hct 33.5 L MCV 91.9 MCH 28.6 MCHC 31.1 RDW 17.3 H Plt Count 162 Neut % (Auto) 81.5 H Lymph % (Auto) 5.5 L [place] % (Auto) 8.6 Eos % (Auto) 3.2 Baso % (Auto) 1.2 Neut # (Auto) 6000 Lymph # (Auto) 400 L [place] # (Auto) 600 Eos # (Auto) 200 Baso # (Auto) 100 ESR PT INR ABG pH ABG pCO2 ABG pO2 ABG HCO3 ABG Total CO2 ABG O2 Saturation ABG Base Excess FiO2 Sodium 141 Potassium 5.0 Chloride 109 H Carbon Dioxide 28 BUN 41 H Creatinine 2.23 H Estimated GFR 28.3 L BUN/Creatinine Ratio 18.4 Glucose 117 H Lactate 2.1 Calcium 8.7 Magnesium Total Bilirubin 0.6 AST 26 ALT 17 Alkaline Phosphatase 149 H Total Creatine Kinase CK-MB (CK-2) CK-MB (CK-2) Rel Index Troponin I C-Reactive Protein NT-Pro-B Natriuret Pep Total Protein 7.1 Albumin 3.5 Globulin 3.6 Albumin/Globulin Ratio 1.0 Procalcitonin 0.11 Nasal Screen MRSA (PCR) Chlamy pneumoniae PCR Adenovirus (PCR) B. pertussis DNA (PCR) B.parapertussis DNA PCR Coronavirus OC43 (PCR) Coronavirus HKU1 (PCR) Coronavirus 229E (PCR) SARS-CoV-2 (PCR) Coronavirus NL63 (PCR) Human Metapneumovir PCR Influenza Type A (PCR) Influenza Type B (PCR) M. pneumoniae (PCR) Parainfluenza 1 (PCR) Parainfluenza 2 (PCR) Parainfluenza 3 (PCR) Parainfluenza 4 (PCR) RSV (PCR) Entero/Rhino (PCR) 02/23/21 02/23/21 02/23/21 14:40 14:40 15:11 WBC RBC Hgb Hct MCV MCH MCHC RDW Plt Count Neut % (Auto) Lymph % (Auto) [place] % (Auto) Eos % (Auto) Baso % (Auto) Neut # (Auto) Lymph # (Auto) [place] # (Auto) Eos # (Auto) Baso # (Auto) ESR PT 42.4 H INR 3.7 H ABG pH 7.37 ABG pCO2 42.1 ABG pO2 60 L ABG HCO3 25 ABG Total CO2 26 ABG O2 Saturation 90 L ABG Base Excess -1.0 FiO2 100 Sodium Potassium Chloride Carbon Dioxide BUN Creatinine Estimated GFR BUN/Creatinine Ratio Glucose Lactate Calcium Magnesium 2.1 Total Bilirubin AST ALT Alkaline Phosphatase Total Creatine Kinase CK-MB (CK-2) CK-MB (CK-2) Rel Index Troponin I C-Reactive Protein NT-Pro-B Natriuret Pep Total Protein Albumin Globulin Albumin/Globulin Ratio Procalcitonin Nasal Screen MRSA (PCR) Chlamy pneumoniae PCR Adenovirus (PCR) B. pertussis DNA (PCR) B.parapertussis DNA PCR Coronavirus OC43 (PCR) Coronavirus HKU1 (PCR) Coronavirus 229E (PCR) SARS-CoV-2 (PCR) Coronavirus NL63 (PCR) Human Metapneumovir PCR Influenza Type A (PCR) Influenza Type B (PCR) M. pneumoniae (PCR) Parainfluenza 1 (PCR) Parainfluenza 2 (PCR) Parainfluenza 3 (PCR) Parainfluenza 4 (PCR) RSV (PCR) Entero/Rhino (PCR) 02/23/21 02/23/21 02/23/21 15:27 15:27 18:09 WBC RBC Hgb Hct MCV MCH MCHC RDW Plt Count Neut % (Auto) Lymph % (Auto) [place] % (Auto) Eos % (Auto) Baso % (Auto) Neut # (Auto) Lymph # (Auto) [place] # (Auto) Eos # (Auto) Baso # (Auto) ESR 44 H PT INR ABG pH ABG pCO2 ABG pO2 ABG HCO3 ABG Total CO2 ABG O2 Saturation ABG Base Excess FiO2 Sodium Potassium Chloride Carbon Dioxide BUN Creatinine Estimated GFR BUN/Creatinine Ratio Glucose Lactate Calcium Magnesium Total Bilirubin AST ALT Alkaline Phosphatase Total Creatine Kinase CK-MB (CK-2) CK-MB (CK-2) Rel Index Troponin I C-Reactive Protein 2.6 H NT-Pro-B Natriuret Pep Total Protein Albumin Globulin Albumin/Globulin Ratio Procalcitonin Nasal Screen MRSA (PCR) Negative for mrsa Chlamy pneumoniae PCR Adenovirus (PCR) B. pertussis DNA (PCR) B.parapertussis DNA PCR Coronavirus OC43 (PCR) Coronavirus HKU1 (PCR) Coronavirus 229E (PCR) SARS-CoV-2 (PCR) Coronavirus NL63 (PCR) Human Metapneumovir PCR Influenza Type A (PCR) Influenza Type B (PCR) M. pneumoniae (PCR) Parainfluenza 1 (PCR) Parainfluenza 2 (PCR) Parainfluenza 3 (PCR) Parainfluenza 4 (PCR) RSV (PCR) Entero/Rhino (PCR) 02/23/21 18:10 WBC RBC Hgb Hct MCV MCH MCHC RDW Plt Count Neut % (Auto) Lymph % (Auto) [place] % (Auto) Eos % (Auto) Baso % (Auto) Neut # (Auto) Lymph # (Auto) [place] # (Auto) Eos # (Auto) Baso # (Auto) ESR PT INR ABG pH ABG pCO2 ABG pO2 ABG HCO3 ABG Total CO2 ABG O2 Saturation ABG Base Excess FiO2 Sodium Potassium Chloride Carbon Dioxide BUN Creatinine Estimated GFR BUN/Creatinine Ratio Glucose Lactate 1.7 Calcium Magnesium Total Bilirubin AST ALT Alkaline Phosphatase Total Creatine Kinase CK-MB (CK-2) CK-MB (CK-2) Rel Index Troponin I C-Reactive Protein NT-Pro-B Natriuret Pep Total Protein Albumin Globulin Albumin/Globulin Ratio Procalcitonin Nasal Screen MRSA (PCR) Chlamy pneumoniae PCR Adenovirus (PCR) B. pertussis DNA (PCR) B.parapertussis DNA PCR Coronavirus OC43 (PCR) Coronavirus HKU1 (PCR) Coronavirus 229E (PCR) SARS-CoV-2 (PCR) Coronavirus NL63 (PCR) Human Metapneumovir PCR Influenza Type A (PCR) Influenza Type B (PCR) M. pneumoniae (PCR) Parainfluenza 1 (PCR) Parainfluenza 2 (PCR) Parainfluenza 3 (PCR) Parainfluenza 4 (PCR) RSV (PCR) Entero/Rhino (PCR) Assessment & Plan Assessment & Plan narrative: NEURO: -- Seek early mobility RESP: # Acute on chronic hypoxemia respiratory failure -- Clinical presentation and labs supportive of volume overload with possible superimposed PNA -- Will initiate aggressive diuresis to seek net negative fluid balance -- Orderd bumex 4 mg IV and metolazone 5 mg PO once -- On abx per primary hospitalist -- HOB elevation -- Aspiration precaution -- RT to titrate FiO2 to maintain goal SpO2 > 90% -- If failed bumex and lasix infusion then will need goals of care discussion # Hx of lung cancer -- Treated with check point inhibitor -- Spouse considering hospice [facility]: # A fib -- Cont metoprolol -- On coumadin to seek goal INR 2-3 # Acute on chronic decompensated CHF -- Appears hypervolemia on CXR -- Cont aggressive diuresis to seek net negative fluid balance -- On metoprolol # HTN -- Cont metoprolol -- Goal SBP < 140 ID: # Concern for PNA given severe hypoxemia -- Start linezolid/aztreonam -- Check resp cx -- Follow up cx data : # ROSARIO on CKD -- Secondary to renal venous congestion and cardiorenal syndrome -- Cont diuresis as above -- Avoid nephotoxin agents -- Daily BMP ENDO: -- Goal BS < 180 Time Spent With Patient Critical Care time: I spent a total of [] minutes of critical care time on this patient's care today; this time is exclusive of procedural time.
[2021-02-23] MEDS: FUROSEMIDE 100 MG in SODIUM CHLORIDE 0.9% 50 ML IV (21:12)
[2021-02-23 21:27] LABS: PCO2 VBG 37.9 mmHg (45-50); pH VBG 7.42 (7.33-7.43)
[2021-02-23] MEDS: metOLazone 2.5 MG TABLET 5 MG PO (21:27)
[2021-02-23 21:28] LABS: HCO3 VBG 25 mmol/L (23-28); Oxygen Saturation VBG 76 % (70-75); PO2 VBG 40 mmHg (35-45); Total CO2 VBG 26 mmol/L (24-29)
[2021-02-23] MEDS: BUMETANIDE 1 MG/4 ML VIAL 3 MG IV (21:57)
[2021-02-23] MEDS: LINEZOLID 600 MG TABLET PO (21:57)
--- NOTE | 2021-02-23 22:30 | PC.NURSE ---
ED report that pt initially came to ED for R leg wound care. Pt is being admitted for R leg cellulitis and CHF exacerbation. In ED pt was hypoxic and pursed lipped breathing with an SpO2 in the 70's on his home O2 of 5L. Upon arrival to the unit at 0, pt was on non-rebreather at 15L with SpO2 of 76%. RT immediately placed pt on HHF 50L/60%. 1939 HHF was incrementally increased up to 60L/90%. Poor wave capture on both earlobe and finger. Dr. Moe aware and changed pt from acute care to ICU care in anticipation of giving lasix drip. 2030 Spoke with tele ICU Dr. Love and initiated multiple diuretics (lasix drip, bumex, diuril) and changed abx. from ancef to azactam. Pt has been mentating well since arrival to unit. He has voided in the urinalx2 without assist and ate a sandwich and pudding. Pt has been alert and orientedx4 but is very hard of hearing (deaf R ear, hearing aid L). Total urine out is 725cc this shift via urinal.
[2021-02-23] MEDS: ACETAMINOPHEN 325 MG TABLET 650 MG PO (23:48)
[2021-02-24] VITALS (19 sets, daily range): BP systolic 105–151; BP diastolic 50–71; PULSE 48–66; RESP 12–24; TEMP 36.2–36.6; O2SAT 85–100
[2021-02-24] MEDS: AZTREONAM 1 GM in SODIUM CHLORIDE 0.9% 50 ML 100 ML IV ×3 (00:58→17:52)
[2021-02-24] MEDS: SODIUM CHLORIDE 0.9% FLUSH 10 ML IV ×3 (00:59→20:37)
[2021-02-24 01:49] LABS: Magnesium 1.9 mg/dL (1.6-2.3)
[2021-02-24 02:01] LABS: Troponin I 0.031 ng/mL (0.01-0.034)
--- NOTE | 2021-02-24 06:25 | PC.NURSE ---
Shift Note-Patient is oriented x4, fatigued, denies shortness of breath except during exertion. On HHFNC titrated between 60L/95% FIO2 to 55L/75% FIO2, SpO2 70% to 100%, fingers, toes, and earlobes are cool and cyanotic, oximetry is not always readable, lung sounds fine crackles with few scattered faint exp wheezes. Lasix gtt at 5mg/hr or 3ml/hr, voided 725ml clear yellow urine overnight. Tylenol given for generalized pain and cold toes.
[2021-02-24 07:51] LABS: Add Manual Diff / Slide Review NO; Basophils Absolute Auto 100 /uL (0-100); Basophils Percent Auto 1.3 % (0-2); Eosinophils Absolute Auto 400 /uL (0-450); Eosinophils Percent Auto 6.7 % (2-4); Hematocrit 33.4 % (41-53); Hemoglobin 10.6 g/dL (13.5-17.5); Lymphocytes Absolute Auto 600 /uL (1100-4500); Lymphocytes Percent Auto 9.4 % (25-40); Mean Corpuscular HGB Conc 31.6 % (30-36); Mean Corpuscular Hemoglobin 28.6 PG (26-34); Mean Corpuscular Volume 90.4 fL (80-100); Monocytes Absolute Auto 500 /uL (0-900); Monocytes Percent Auto 8.8 % (3-14); Neutrophils Absolute Auto 4500 /uL (1500-7000); Neutrophils Percent Auto 73.8 % (50-75); Platelet Count 142 X10^3/uL (150-400); Red Cell Distribution Width 17.1 % (11.6-14.8); White Blood Cell Count 6.1 X10^3/uL (4.5-11.0)
[2021-02-24 08:12] LABS: Prothrombin Time 46.6 SECONDS (10.1-12.7)
[2021-02-24 08:17] LABS: BUN Creatinine Ratio 19.3 (6-22); Blood Urea Nitrogen 44 mg/dL (9-20); Calcium 8.7 mg/dL (8.4-10.2); Carbon Dioxide 27 mmol/L (22-32); Chloride 108 mmol/L (98-107); Estimated Glomerular Filt Rate 27.6 mL/min (>60); Glucose 81 mg/dL (80-110); HEMOLYSIS < 15 (0-50); Magnesium 1.9 mg/dL (1.6-2.3); Phosphorous 3.7 mg/dL (2.3-3.7); Potassium 5.2 mmol/L (3.4-5.1); Sodium 141 mmol/L (137-145)
[2021-02-24 08:28] LABS: Troponin I 0.028 ng/mL (0.01-0.034)
--- NOTE | 2021-02-24 08:51 | PC.NURSE ---
Addendum entered by Derek Cortez R.N. 02/24/21 15:09: Patient continues to deny pain this shift, able to turn in bed and call for assistance as needed. Using urinal. Patient states his breathing feels pretty comfortable but easily desats with any activity. Dressing to right lower leg remains in place, CDI. Remains slow AFIB on telemetry, HR 39-50's, blood pressure remains stable. RT continues to titrate HHF settings to maintain spo2 > 90%. Call light within reach, bed alarm on for safety. Original Note: Patient sitting upright in bed this morning, stating his breathing feels comfortable other than the machine being loud. After adjusting for breakfast and attempting to eat patient desaturated to 79-85%. Noted frequent PVC's with AFIB on telemetry. RT at bedside and adjusting settings, upto 55L at 75% at this time while eating and now 91% spo2. Patient declines shortness of breath ad denies pain. Call light within reach, continue to monitor.
[2021-02-24] MEDS: METOPROLOL ER 50 MG TABLET PO (09:14)
[2021-02-24] MEDS: LINEZOLID 600 MG TABLET PO ×2 (09:14→20:37)
[2021-02-24] MEDS: FUROSEMIDE 100 MG in SODIUM CHLORIDE 0.9% 50 ML IV (11:35)
--- NOTE | 2021-02-24 12:10 | P.TELICUPN_ITS ---
Subjective Subjective :: This patient was seen via real time interactive two-way audiovisual telecommunication. Patient on high flow, comfrtabl and tolerating it well. Remains on lasix gtt, and has a net negative balance. LE US pending. Current Medications Current Medications Medications: Home Medications digoxin 250 mcg (0.25 mg) tablet (Lanoxin) 0.125 mg PO QDAY #0 10/29/12 [History Confirmed 02/24/21] metoprolol succinate 200 mg tablet,extended release 24 hr (Toprol XL) 200 mg PO QDAY #90 tab 02/09/18 [Rx Confirmed 02/24/21] furosemide 20 mg tablet (Lasix) 20 mg PO QDAY tab 05/23/20 [History Confirmed 02/24/21] gabapentin 300 mg capsule 300 mg PO BEDTIME #90 cap 09/11/20 [Rx Confirmed 02/24/21] Handicap Placard #1 ea 11/15/20 [Rx Confirmed 02/24/21] losartan 50 mg tablet See Rx Instructions .ROUTE .COMPLEX #90 tab 01/10/21 [Rx Confirmed 02/24/21] warfarin 5 mg tablet See Rx Instructions PO DAILY #90 tab 02/08/21 [Rx Confirmed 02/24/21] Visit Medications (administered) Generic Name Dose Route Start Last Admin Trade Name Freq PRN Reason Stop Dose Admin Acetaminophen 650 mg 02/23/21 17:00 02/23/21 23:48 Acetaminophen 325 Mg Tablet PO 650 mg Q6HR PRN Administration Fever/Mild Pain (1-3) Furosemide 100 mg/ Sodium 60 mls @ 3 mls/hr 02/23/21 20:00 02/24/21 11:35 Chloride IV 5 mg/hr CONT KENYATTA 3 mls/hr Administration 5 MG/HR Aztreonam 1 gm/ Sodium 50 mls @ 100 mls/hr 02/24/21 01:00 02/24/21 10:11 Chloride IV Infused Q8H KENYATTA Infusion Linezolid 600 mg 02/23/21 21:30 02/24/21 09:14 Linezolid 600 Mg Tablet PO 600 mg BID KENYATTA Administration Metoprolol Succinate 50 mg 02/24/21 09:00 02/24/21 09:14 Metoprolol Er 50 Mg Tablet PO 50 mg DAILY KENYATTA Administration Sodium Chloride 10 ml 02/23/21 23:35 02/24/21 00:59 Sodium Chloride 0.9% Flush IV 10 ml PRN PRN Administration Flush Sodium Chloride 10 ml 02/24/21 09:00 02/24/21 09:15 Sodium Chloride 0.9% Flush IV 10 ml BID KENYATTA Administration Objective Labs Result Diagrams: 02/24/21 07:15 02/24/21 07:15 Labs: Laboratory Results - last 24 hr 02/23/21 02/23/21 02/23/21 14:24 14:24 14:32 WBC RBC Hgb Hct MCV MCH MCHC RDW Plt Count Neut % (Auto) Lymph % (Auto) [place] % (Auto) Eos % (Auto) Baso % (Auto) Neut # (Auto) Lymph # (Auto) [place] # (Auto) Eos # (Auto) Baso # (Auto) ESR PT INR ABG pH ABG pCO2 ABG pO2 ABG HCO3 ABG Total CO2 ABG O2 Saturation ABG Base Excess VBG pH VBG pCO2 VBG pO2 VBG HCO3 VBG Total CO2 VBG O2 Saturation VBG Base Excess FiO2 Sodium Potassium Chloride Carbon Dioxide BUN Creatinine Estimated GFR BUN/Creatinine Ratio Glucose Lactate Calcium Phosphorus Magnesium Total Bilirubin AST ALT Alkaline Phosphatase Total Creatine Kinase 57 CK-MB (CK-2) TNP CK-MB (CK-2) Rel Index TNP Troponin I 0.036 H C-Reactive Protein NT-Pro-B Natriuret Pep 06937 H Total Protein Albumin Globulin Albumin/Globulin Ratio Procalcitonin Nasal Screen MRSA (PCR) Chlamy pneumoniae PCR Not detected Adenovirus (PCR) Not detected B. pertussis DNA (PCR) Not detected B.parapertussis DNA PCR Not detected Coronavirus OC43 (PCR) Not detected Coronavirus HKU1 (PCR) Not detected Coronavirus 229E (PCR) Not detected SARS-CoV-2 (PCR) Negative Not detected Coronavirus NL63 (PCR) Not detected Human Metapneumovir PCR Not detected Influenza Type A (PCR) Not detected Influenza Type B (PCR) Not detected M. pneumoniae (PCR) Not detected Parainfluenza 1 (PCR) Not detected Parainfluenza 2 (PCR) Not detected Parainfluenza 3 (PCR) Not detected Parainfluenza 4 (PCR) Not detected RSV (PCR) Not detected Entero/Rhino (PCR) Not detected 02/23/21 02/23/21 02/23/21 14:40 14:40 14:40 WBC 7.4 RBC 3.65 L Hgb 10.4 L Hct 33.5 L MCV 91.9 MCH 28.6 MCHC 31.1 RDW 17.3 H Plt Count 162 Neut % (Auto) 81.5 H Lymph % (Auto) 5.5 L [place] % (Auto) 8.6 Eos % (Auto) 3.2 Baso % (Auto) 1.2 Neut # (Auto) 6000 Lymph # (Auto) 400 L [place] # (Auto) 600 Eos # (Auto) 200 Baso # (Auto) 100 ESR PT INR ABG pH ABG pCO2 ABG pO2 ABG HCO3 ABG Total CO2 ABG O2 Saturation ABG Base Excess VBG pH VBG pCO2 VBG pO2 VBG HCO3 VBG Total CO2 VBG O2 Saturation VBG Base Excess FiO2 Sodium 141 Potassium 5.0 Chloride 109 H Carbon Dioxide 28 BUN 41 H Creatinine 2.23 H Estimated GFR 28.3 L BUN/Creatinine Ratio 18.4 Glucose 117 H Lactate 2.1 Calcium 8.7 Phosphorus Magnesium Total Bilirubin 0.6 AST 26 ALT 17 Alkaline Phosphatase 149 H Total Creatine Kinase CK-MB (CK-2) CK-MB (CK-2) Rel Index Troponin I C-Reactive Protein NT-Pro-B Natriuret Pep Total Protein 7.1 Albumin 3.5 Globulin 3.6 Albumin/Globulin Ratio 1.0 Procalcitonin 0.11 Nasal Screen MRSA (PCR) Chlamy pneumoniae PCR Adenovirus (PCR) B. pertussis DNA (PCR) B.parapertussis DNA PCR Coronavirus OC43 (PCR) Coronavirus HKU1 (PCR) Coronavirus 229E (PCR) SARS-CoV-2 (PCR) Coronavirus NL63 (PCR) Human Metapneumovir PCR Influenza Type A (PCR) Influenza Type B (PCR) M. pneumoniae (PCR) Parainfluenza 1 (PCR) Parainfluenza 2 (PCR) Parainfluenza 3 (PCR) Parainfluenza 4 (PCR) RSV (PCR) Entero/Rhino (PCR) 02/23/21 02/23/21 02/23/21 14:40 14:40 15:11 WBC RBC Hgb Hct MCV MCH MCHC RDW Plt Count Neut % (Auto) Lymph % (Auto) [place] % (Auto) Eos % (Auto) Baso % (Auto) Neut # (Auto) Lymph # (Auto) [place] # (Auto) Eos # (Auto) Baso # (Auto) ESR PT 42.4 H INR 3.7 H ABG pH 7.37 ABG pCO2 42.1 ABG pO2 60 L ABG HCO3 25 ABG Total CO2 26 ABG O2 Saturation 90 L ABG Base Excess -1.0 VBG pH VBG pCO2 VBG pO2 VBG HCO3 VBG Total CO2 VBG O2 Saturation VBG Base Excess FiO2 100 Sodium Potassium Chloride Carbon Dioxide BUN Creatinine Estimated GFR BUN/Creatinine Ratio Glucose Lactate Calcium Phosphorus Magnesium 2.1 Total Bilirubin AST ALT Alkaline Phosphatase Total Creatine Kinase CK-MB (CK-2) CK-MB (CK-2) Rel Index Troponin I C-Reactive Protein NT-Pro-B Natriuret Pep Total Protein Albumin Globulin Albumin/Globulin Ratio Procalcitonin Nasal Screen MRSA (PCR) Chlamy pneumoniae PCR Adenovirus (PCR) B. pertussis DNA (PCR) B.parapertussis DNA PCR Coronavirus OC43 (PCR) Coronavirus HKU1 (PCR) Coronavirus 229E (PCR) SARS-CoV-2 (PCR) Coronavirus NL63 (PCR) Human Metapneumovir PCR Influenza Type A (PCR) Influenza Type B (PCR) M. pneumoniae (PCR) Parainfluenza 1 (PCR) Parainfluenza 2 (PCR) Parainfluenza 3 (PCR) Parainfluenza 4 (PCR) RSV (PCR) Entero/Rhino (PCR) 02/23/21 02/23/21 02/23/21 15:27 15:27 18:09 WBC RBC Hgb Hct MCV MCH MCHC RDW Plt Count Neut % (Auto) Lymph % (Auto) [place] % (Auto) Eos % (Auto) Baso % (Auto) Neut # (Auto) Lymph # (Auto) [place] # (Auto) Eos # (Auto) Baso # (Auto) ESR 44 H PT INR ABG pH ABG pCO2 ABG pO2 ABG HCO3 ABG Total CO2 ABG O2 Saturation ABG Base Excess VBG pH VBG pCO2 VBG pO2 VBG HCO3 VBG Total CO2 VBG O2 Saturation VBG Base Excess FiO2 Sodium Potassium Chloride Carbon Dioxide BUN Creatinine Estimated GFR BUN/Creatinine Ratio Glucose Lactate Calcium Phosphorus Magnesium Total Bilirubin AST ALT Alkaline Phosphatase Total Creatine Kinase CK-MB (CK-2) CK-MB (CK-2) Rel Index Troponin I C-Reactive Protein 2.6 H NT-Pro-B Natriuret Pep Total Protein Albumin Globulin Albumin/Globulin Ratio Procalcitonin Nasal Screen MRSA (PCR) Negative for mrsa Chlamy pneumoniae PCR Adenovirus (PCR) B. pertussis DNA (PCR) B.parapertussis DNA PCR Coronavirus OC43 (PCR) Coronavirus HKU1 (PCR) Coronavirus 229E (PCR) SARS-CoV-2 (PCR) Coronavirus NL63 (PCR) Human Metapneumovir PCR Influenza Type A (PCR) Influenza Type B (PCR) M. pneumoniae (PCR) Parainfluenza 1 (PCR) Parainfluenza 2 (PCR) Parainfluenza 3 (PCR) Parainfluenza 4 (PCR) RSV (PCR) Entero/Rhino (PCR) 02/23/21 02/23/21 02/24/21 18:10 21:10 01:30 WBC RBC Hgb Hct MCV MCH MCHC RDW Plt Count Neut % (Auto) Lymph % (Auto) [place] % (Auto) Eos % (Auto) Baso % (Auto) Neut # (Auto) Lymph # (Auto) [place] # (Auto) Eos # (Auto) Baso # (Auto) ESR PT INR ABG pH ABG pCO2 ABG pO2 ABG HCO3 ABG Total CO2 ABG O2 Saturation ABG Base Excess VBG pH 7.42 VBG pCO2 37.9 L VBG pO2 40 VBG HCO3 25 VBG Total CO2 26 VBG O2 Saturation 76 H VBG Base Excess 0.0 FiO2 Sodium Potassium Chloride Carbon Dioxide BUN Creatinine Estimated GFR BUN/Creatinine Ratio Glucose Lactate 1.7 Calcium Phosphorus Magnesium 1.9 Total Bilirubin AST ALT Alkaline Phosphatase Total Creatine Kinase CK-MB (CK-2) CK-MB (CK-2) Rel Index Troponin I C-Reactive Protein NT-Pro-B Natriuret Pep Total Protein Albumin Globulin Albumin/Globulin Ratio Procalcitonin Nasal Screen MRSA (PCR) Chlamy pneumoniae PCR Adenovirus (PCR) B. pertussis DNA (PCR) B.parapertussis DNA PCR Coronavirus OC43 (PCR) Coronavirus HKU1 (PCR) Coronavirus 229E (PCR) SARS-CoV-2 (PCR) Coronavirus NL63 (PCR) Human Metapneumovir PCR Influenza Type A (PCR) Influenza Type B (PCR) M. pneumoniae (PCR) Parainfluenza 1 (PCR) Parainfluenza 2 (PCR) Parainfluenza 3 (PCR) Parainfluenza 4 (PCR) RSV (PCR) Entero/Rhino (PCR) 02/24/21 02/24/21 02/24/21 01:30 07:15 07:15 WBC RBC Hgb Hct MCV MCH MCHC RDW Plt Count Neut % (Auto) Lymph % (Auto) [place] % (Auto) Eos % (Auto) Baso % (Auto) Neut # (Auto) Lymph # (Auto) [place] # (Auto) Eos # (Auto) Baso # (Auto) ESR PT 46.6 H INR 4.0 H ABG pH ABG pCO2 ABG pO2 ABG HCO3 ABG Total CO2 ABG O2 Saturation ABG Base Excess VBG pH VBG pCO2 VBG pO2 VBG HCO3 VBG Total CO2 VBG O2 Saturation VBG Base Excess FiO2 Sodium Potassium Chloride Carbon Dioxide BUN Creatinine Estimated GFR BUN/Creatinine Ratio Glucose Lactate Calcium Phosphorus Magnesium Total Bilirubin AST ALT Alkaline Phosphatase Total Creatine Kinase CK-MB (CK-2) CK-MB (CK-2) Rel Index Troponin I 0.031 0.028 C-Reactive Protein NT-Pro-B Natriuret Pep Total Protein Albumin Globulin Albumin/Globulin Ratio Procalcitonin Nasal Screen MRSA (PCR) Chlamy pneumoniae PCR Adenovirus (PCR) B. pertussis DNA (PCR) B.parapertussis DNA PCR Coronavirus OC43 (PCR) Coronavirus HKU1 (PCR) Coronavirus 229E (PCR) SARS-CoV-2 (PCR) Coronavirus NL63 (PCR) Human Metapneumovir PCR Influenza Type A (PCR) Influenza Type B (PCR) M. pneumoniae (PCR) Parainfluenza 1 (PCR) Parainfluenza 2 (PCR) Parainfluenza 3 (PCR) Parainfluenza 4 (PCR) RSV (PCR) Entero/Rhino (PCR) 02/24/21 02/24/21 07:15 07:15 WBC 6.1 RBC 3.70 L Hgb 10.6 L Hct 33.4 L MCV 90.4 MCH 28.6 MCHC 31.6 RDW 17.1 H Plt Count 142 L Neut % (Auto) 73.8 Lymph % (Auto) 9.4 L [place] % (Auto) 8.8 Eos % (Auto) 6.7 H Baso % (Auto) 1.3 Neut # (Auto) 4500 Lymph # (Auto) 600 L [place] # (Auto) 500 Eos # (Auto) 400 Baso # (Auto) 100 ESR PT INR ABG pH ABG pCO2 ABG pO2 ABG HCO3 ABG Total CO2 ABG O2 Saturation ABG Base Excess VBG pH VBG pCO2 VBG pO2 VBG HCO3 VBG Total CO2 VBG O2 Saturation VBG Base Excess FiO2 Sodium 141 Potassium 5.2 H Chloride 108 H Carbon Dioxide 27 BUN 44 H Creatinine 2.28 H Estimated GFR 27.6 L BUN/Creatinine Ratio 19.3 Glucose 81 Lactate Calcium 8.7 Phosphorus 3.7 Magnesium 1.9 Total Bilirubin AST ALT Alkaline Phosphatase Total Creatine Kinase CK-MB (CK-2) CK-MB (CK-2) Rel Index Troponin I C-Reactive Protein NT-Pro-B Natriuret Pep Total Protein Albumin Globulin Albumin/Globulin Ratio Procalcitonin Nasal Screen MRSA (PCR) Chlamy pneumoniae PCR Adenovirus (PCR) B. pertussis DNA (PCR) B.parapertussis DNA PCR Coronavirus OC43 (PCR) Coronavirus HKU1 (PCR) Coronavirus 229E (PCR) SARS-CoV-2 (PCR) Coronavirus NL63 (PCR) Human Metapneumovir PCR Influenza Type A (PCR) Influenza Type B (PCR) M. pneumoniae (PCR) Parainfluenza 1 (PCR) Parainfluenza 2 (PCR) Parainfluenza 3 (PCR) Parainfluenza 4 (PCR) RSV (PCR) Entero/Rhino (PCR) Exam Vital Signs (past 8 hours): - 02/24/21 06:19 02/24/21 08:30 02/24/21 08:31 Temperature 98 F Pulse Rate 58 L 62 56 L Respiratory Rate 20 20 23 Blood Pressure 142/58 H 108/58 L 108/58 L Pulse Oximetry 100 92 85 L 02/24/21 08:56 02/24/21 09:14 02/24/21 10:37 Temperature Pulse Rate 61 54 L Respiratory Rate 16 Blood Pressure 108/58 L 105/58 L Pulse Oximetry 91 95 02/24/21 11:31 Temperature 98 F Pulse Rate 56 L Respiratory Rate 19 Blood Pressure 128/58 L Pulse Oximetry 100 Fraction of Inspired Oxygen 67 Oxygen Delivery Method Heated High Flow Oxygen Flow Rate 55 Narrative Exam Narrative: surrogate for exam is primary team Assessment & Plan Assessment & Plan narrative: Acute hypoxemic resp failure HFrEF - uf unknown possible prob gram negative pna Lung Ca afib plerual effusion of R Plan continue high flow NC - wean off as tolerated TTE adat continue lasix for goal negative balance cont coumadin, though can cnsider NOAC for easier dosing on d/c LE venous US [place] r/o DVT tnrend bmp trend INR and cbc pt/ot cont zyvox and aztreonam DNR/I , hospice would be appropirate CCT 35 min Time Spent With Patient Critical Care time: I spent a total of [] minutes of critical care time on this patient's care today; this time is exclusive of procedural time.
--- NOTE | 2021-02-24 12:11 | CM.DANOTE ---
Patient is an 85 yo male who was admitted on 02/23/21 for Wound. Pt has [place] and [place] for insurance and his PCP is Dr. Ashwin Shepherd. EMR was reviewed. Per , pt with hx of lung ca at baseline with last tx in October 2020 and pt has chronic resp failure and on 5LO2 at home. Pt currently getting lasiks and IV-Abx to determine if his AFIB and oxygen needs can improve as pt currently on HHFNC. SW met bedside with pt and spouse/LINO Whitehead and explained role and confirmed that they live at home in [place] and spouse is pt's primary CG although pt has been able to use a scooter, power lift recliner chair, walker for very short distances and support with transfers for mobility at home. Pt typically is able to get to the bathroom for toileting but on occasion he soils himself and spouse helps with sponge baths. They deny any other supportive service like macadam raker or PP CG and deny any hx of HH or SNF. Spouse states that pt has been quite independent until recently. Spouse states that they have been discussion Hospice with their PCP and spouse received a call [facility] for [facility] Info [facility] but decision made to hold off on Hospice until after pt's upcoming appt at [facility] this month. SW discussed that Hospice does not provide 24/7 care and if preference is home and they decide on [facility] then they will likely need family and PP CG assist. Spouse states they have 2 local supportive sons and a grandson that provide assist when needed and would remain involved. SW discussed likely still needing PP CG in addition and spouse acknowledges understanding. Spouse also states if pt makes improvements then she would be interested in considering SNF rehab, preference [facility] as someone they know works there, or if strong enough for home and back to baseline then HH and no HH preference. SW discussed one barrier is pt's current HHFNC oxygen as SNF and likely home cannot manage HHF oxygen. SW also discussed that if pt improves some then likely will work with hospital PT to confirm he would be appropriate for SNF and spouse acknowledges understanding. SW faxed [facility] pt's referral and left ms regarding their previous discussion with spouse and requested review as pt may likely need Hospice at d/c. SW made referral to [facility] who states currently they may not have beds available for male rehab bed but wrote down pt name and will have October review on Friday when better able to determine if they will have any openings and pt's progress. Spouse states pt's copy of Advanced Directives is somewhere at home and she will attempt to find and bring in a copy. Plan: SW to follow closely for pt's progress to determine SNF vs Hospice at d/c. CLAUDETTE Lynch Discharge Planning/Care Management Advanced directive, confirm from FAMILY Start: 02/23/21 18:59 Freq: Q24H Status: Active Protocol: Document 02/23/21 18:59 OW (Rec: 02/23/21 19:22 OW [id number]) Advance Directive, confirm on record Time 19:20 Person contacted Charley Argueta Copy received No Document 02/23/21 18:59 OW (Rec: 02/23/21 19:27 OW [id number]) Advance Directive, confirm on record Time 19:15 Person contacted Charley Kennyy Copy received No CM Discharge Assessment Start: 02/24/21 12:03 Freq: Status: Active Protocol: Document 02/24/21 12:03 BF (Rec: 02/24/21 12:11 BF [id number]) Discharge Planning Assessment Assigned Rn Dermatology CLAUDETTE Turcios DPOA/Assigned Designee Name spouse Charley Argueta Contact Information [phone] Advance Directives? Yes Advance Directives on File No History Provided By Patient,Significant Other, Medical Record Has Patient been admitted in last 30 No days? Prior Living Arrangements House Household Members spouse Type of transporation used prior to Relies on Others admit Independent with ADL's No Is patient alert and oriented? Yes: somewhat Needs Assistance With Bathing,Meal Prep,Managing Medications,Home Chores / Shopping Caregiver for Another No DME Already Rented / Owned Bath Bench,FWW / Walker Patient/Family Preference Care Home Facility Comment SNF vs Hospice pending progress Barriers to Discharge Yes Comment Currently requiring HHFNC and not accepted at SNF Discharge Plan Care Home [facility] Transportation Arrangement Pending pt progress and d/c plan. Pt has spouse and 2 sons and one grandson locally who could transport if needed. Referrals Initiated Care Home,Other Additional Comment [facility] referral made Medicare Choice List Provided Yes [facility]HH [facility], home with HNW Has Agency SNF been contacted Yes Whiteboard Updated in Patient Room with Yes name and ext. # of Rn Dermatology Review Status In Process Please Provide Date Initial DC 02/25/21 Assessment Was Performed Next Review Type Continued Stay Review
--- NOTE | 2021-02-24 12:14 | DI.US.S_ITS ---
PROCEDURE: US PERIPH VENOUS LOW EXTREM BI INDICATIONS: HYPOXIA TECHNIQUE: Real-time imaging, as well as color and pulse Doppler interrogation, were performed of the deep veins of both legs from the inguinal ligament to the popliteal fossa. COMPARISON: None. FINDINGS: Right: The common femoral, femoral and popliteal veins are normally compressible, and free of intraluminal thrombus. Color and pulse Doppler demonstrate normal phasic intravascular flow. There is normal augmentation response to distal compression maneuver. Left: The common femoral, femoral and popliteal veins are normally compressible, and free of intraluminal thrombus. Color and pulse Doppler demonstrate normal phasic intravascular flow. There is normal augmentation response to distal compression maneuver. IMPRESSION: Negative for deep venous thrombosis. Dictated by: Craig Daniel M.D. on 02/24/2021 at 16:21 Approved by: Craig Daniel M.D. on 02/24/2021 at 16:22
--- NOTE | 2021-02-24 12:27 | PM.PN.1 ---
Subjective Subjective Date Patient Seen: 02/24/21 Time Patient Seen: 08:15 Interval history: This is an 85-year-old male admitted with acute on chronic hypoxemic respiratory failure. The overnight he was on as high as 60 L of 100% FiO2 oxygen via heated high-flow nasal cannula. He is DNR DNI. He was able to be weaned somewhat to 55 L at 70% this morning, but had a desaturation with breakfast. Oxygen requirements are slightly increased at 55 L in 77% FiO2. Appreciate Critical Care recommendations, DVT study still pending. Patient does not wish for a Valero catheter at this time to track urinary output. He is voiding with minimal residual left after urination. Exam Vital Signs (past 8 hours): - 02/24/21 06:19 02/24/21 08:30 02/24/21 08:31 Temperature 98 F Pulse Rate 58 L 62 56 L Respiratory Rate 20 20 23 Blood Pressure 142/58 H 108/58 L 108/58 L Pulse Oximetry 100 92 85 L 02/24/21 08:56 02/24/21 09:14 02/24/21 10:37 Temperature Pulse Rate 61 54 L Respiratory Rate 16 Blood Pressure 108/58 L 105/58 L Pulse Oximetry 91 95 02/24/21 11:31 02/24/21 12:18 Temperature 98 F Pulse Rate 56 L 60 Respiratory Rate 19 12 Blood Pressure 128/58 L 128/50 L Pulse Oximetry 100 95 Fraction of Inspired Oxygen 67 Oxygen Delivery Method Heated High Flow Oxygen Flow Rate 55 Narrative Exam Narrative: GEN: no acute distress,fatigued and chronically ill appearing. HEENT: PERRL, moist mucous membranes CV: bradycardic, irregular, 3-4/6 systolic murmur PULM: crackles bilaterally in the bases, no wheezes ABD: soft, nontender, distended, normal bowel sounds, no organomegaly EXT: 3+ pitting edema bilateral lower extremities. SKIN: ulcer noted on right leg previously, currently bandaged, no expanding erythema. NEURO: awake and alert, no focal deficits, moving all extremities Objective Labs Result Diagrams: 02/24/21 07:15 02/24/21 07:15 Labs: Laboratory Results - last 24 hr 02/23/21 02/23/21 02/23/21 14:24 14:24 14:32 WBC RBC Hgb Hct MCV MCH MCHC RDW Plt Count Neut % (Auto) Lymph % (Auto) [place] % (Auto) Eos % (Auto) Baso % (Auto) Neut # (Auto) Lymph # (Auto) [place] # (Auto) Eos # (Auto) Baso # (Auto) ESR PT INR ABG pH ABG pCO2 ABG pO2 ABG HCO3 ABG Total CO2 ABG O2 Saturation ABG Base Excess VBG pH VBG pCO2 VBG pO2 VBG HCO3 VBG Total CO2 VBG O2 Saturation VBG Base Excess FiO2 Sodium Potassium Chloride Carbon Dioxide BUN Creatinine Estimated GFR BUN/Creatinine Ratio Glucose Lactate Calcium Phosphorus Magnesium Total Bilirubin AST ALT Alkaline Phosphatase Total Creatine Kinase 57 CK-MB (CK-2) TNP CK-MB (CK-2) Rel Index TNP Troponin I 0.036 H C-Reactive Protein NT-Pro-B Natriuret Pep 38040 H Total Protein Albumin Globulin Albumin/Globulin Ratio Procalcitonin Nasal Screen MRSA (PCR) Chlamy pneumoniae PCR Not detected Adenovirus (PCR) Not detected B. pertussis DNA (PCR) Not detected B.parapertussis DNA PCR Not detected Coronavirus OC43 (PCR) Not detected Coronavirus HKU1 (PCR) Not detected Coronavirus 229E (PCR) Not detected SARS-CoV-2 (PCR) Negative Not detected Coronavirus NL63 (PCR) Not detected Human Metapneumovir PCR Not detected Influenza Type A (PCR) Not detected Influenza Type B (PCR) Not detected M. pneumoniae (PCR) Not detected Parainfluenza 1 (PCR) Not detected Parainfluenza 2 (PCR) Not detected Parainfluenza 3 (PCR) Not detected Parainfluenza 4 (PCR) Not detected RSV (PCR) Not detected Entero/Rhino (PCR) Not detected 02/23/21 02/23/21 02/23/21 14:40 14:40 14:40 WBC 7.4 RBC 3.65 L Hgb 10.4 L Hct 33.5 L MCV 91.9 MCH 28.6 MCHC 31.1 RDW 17.3 H Plt Count 162 Neut % (Auto) 81.5 H Lymph % (Auto) 5.5 L [place] % (Auto) 8.6 Eos % (Auto) 3.2 Baso % (Auto) 1.2 Neut # (Auto) 6000 Lymph # (Auto) 400 L [place] # (Auto) 600 Eos # (Auto) 200 Baso # (Auto) 100 ESR PT INR ABG pH ABG pCO2 ABG pO2 ABG HCO3 ABG Total CO2 ABG O2 Saturation ABG Base Excess VBG pH VBG pCO2 VBG pO2 VBG HCO3 VBG Total CO2 VBG O2 Saturation VBG Base Excess FiO2 Sodium 141 Potassium 5.0 Chloride 109 H Carbon Dioxide 28 BUN 41 H Creatinine 2.23 H Estimated GFR 28.3 L BUN/Creatinine Ratio 18.4 Glucose 117 H Lactate 2.1 Calcium 8.7 Phosphorus Magnesium Total Bilirubin 0.6 AST 26 ALT 17 Alkaline Phosphatase 149 H Total Creatine Kinase CK-MB (CK-2) CK-MB (CK-2) Rel Index Troponin I C-Reactive Protein NT-Pro-B Natriuret Pep Total Protein 7.1 Albumin 3.5 Globulin 3.6 Albumin/Globulin Ratio 1.0 Procalcitonin 0.11 Nasal Screen MRSA (PCR) Chlamy pneumoniae PCR Adenovirus (PCR) B. pertussis DNA (PCR) B.parapertussis DNA PCR Coronavirus OC43 (PCR) Coronavirus HKU1 (PCR) Coronavirus 229E (PCR) SARS-CoV-2 (PCR) Coronavirus NL63 (PCR) Human Metapneumovir PCR Influenza Type A (PCR) Influenza Type B (PCR) M. pneumoniae (PCR) Parainfluenza 1 (PCR) Parainfluenza 2 (PCR) Parainfluenza 3 (PCR) Parainfluenza 4 (PCR) RSV (PCR) Entero/Rhino (PCR) 02/23/21 02/23/21 02/23/21 14:40 14:40 15:11 WBC RBC Hgb Hct MCV MCH MCHC RDW Plt Count Neut % (Auto) Lymph % (Auto) [place] % (Auto) Eos % (Auto) Baso % (Auto) Neut # (Auto) Lymph # (Auto) [place] # (Auto) Eos # (Auto) Baso # (Auto) ESR PT 42.4 H INR 3.7 H ABG pH 7.37 ABG pCO2 42.1 ABG pO2 60 L ABG HCO3 25 ABG Total CO2 26 ABG O2 Saturation 90 L ABG Base Excess -1.0 VBG pH VBG pCO2 VBG pO2 VBG HCO3 VBG Total CO2 VBG O2 Saturation VBG Base Excess FiO2 100 Sodium Potassium Chloride Carbon Dioxide BUN Creatinine Estimated GFR BUN/Creatinine Ratio Glucose Lactate Calcium Phosphorus Magnesium 2.1 Total Bilirubin AST ALT Alkaline Phosphatase Total Creatine Kinase CK-MB (CK-2) CK-MB (CK-2) Rel Index Troponin I C-Reactive Protein NT-Pro-B Natriuret Pep Total Protein Albumin Globulin Albumin/Globulin Ratio Procalcitonin Nasal Screen MRSA (PCR) Chlamy pneumoniae PCR Adenovirus (PCR) B. pertussis DNA (PCR) B.parapertussis DNA PCR Coronavirus OC43 (PCR) Coronavirus HKU1 (PCR) Coronavirus 229E (PCR) SARS-CoV-2 (PCR) Coronavirus NL63 (PCR) Human Metapneumovir PCR Influenza Type A (PCR) Influenza Type B (PCR) M. pneumoniae (PCR) Parainfluenza 1 (PCR) Parainfluenza 2 (PCR) Parainfluenza 3 (PCR) Parainfluenza 4 (PCR) RSV (PCR) Entero/Rhino (PCR) 02/23/21 02/23/21 02/23/21 15:27 15:27 18:09 WBC RBC Hgb Hct MCV MCH MCHC RDW Plt Count Neut % (Auto) Lymph % (Auto) [place] % (Auto) Eos % (Auto) Baso % (Auto) Neut # (Auto) Lymph # (Auto) [place] # (Auto) Eos # (Auto) Baso # (Auto) ESR 44 H PT INR ABG pH ABG pCO2 ABG pO2 ABG HCO3 ABG Total CO2 ABG O2 Saturation ABG Base Excess VBG pH VBG pCO2 VBG pO2 VBG HCO3 VBG Total CO2 VBG O2 Saturation VBG Base Excess FiO2 Sodium Potassium Chloride Carbon Dioxide BUN Creatinine Estimated GFR BUN/Creatinine Ratio Glucose Lactate Calcium Phosphorus Magnesium Total Bilirubin AST ALT Alkaline Phosphatase Total Creatine Kinase CK-MB (CK-2) CK-MB (CK-2) Rel Index Troponin I C-Reactive Protein 2.6 H NT-Pro-B Natriuret Pep Total Protein Albumin Globulin Albumin/Globulin Ratio Procalcitonin Nasal Screen MRSA (PCR) Negative for mrsa Chlamy pneumoniae PCR Adenovirus (PCR) B. pertussis DNA (PCR) B.parapertussis DNA PCR Coronavirus OC43 (PCR) Coronavirus HKU1 (PCR) Coronavirus 229E (PCR) SARS-CoV-2 (PCR) Coronavirus NL63 (PCR) Human Metapneumovir PCR Influenza Type A (PCR) Influenza Type B (PCR) M. pneumoniae (PCR) Parainfluenza 1 (PCR) Parainfluenza 2 (PCR) Parainfluenza 3 (PCR) Parainfluenza 4 (PCR) RSV (PCR) Entero/Rhino (PCR) 02/23/21 02/23/21 02/24/21 18:10 21:10 01:30 WBC RBC Hgb Hct MCV MCH MCHC RDW Plt Count Neut % (Auto) Lymph % (Auto) [place] % (Auto) Eos % (Auto) Baso % (Auto) Neut # (Auto) Lymph # (Auto) [place] # (Auto) Eos # (Auto) Baso # (Auto) ESR PT INR ABG pH ABG pCO2 ABG pO2 ABG HCO3 ABG Total CO2 ABG O2 Saturation ABG Base Excess VBG pH 7.42 VBG pCO2 37.9 L VBG pO2 40 VBG HCO3 25 VBG Total CO2 26 VBG O2 Saturation 76 H VBG Base Excess 0.0 FiO2 Sodium Potassium Chloride Carbon Dioxide BUN Creatinine Estimated GFR BUN/Creatinine Ratio Glucose Lactate 1.7 Calcium Phosphorus Magnesium 1.9 Total Bilirubin AST ALT Alkaline Phosphatase Total Creatine Kinase CK-MB (CK-2) CK-MB (CK-2) Rel Index Troponin I C-Reactive Protein NT-Pro-B Natriuret Pep Total Protein Albumin Globulin Albumin/Globulin Ratio Procalcitonin Nasal Screen MRSA (PCR) Chlamy pneumoniae PCR Adenovirus (PCR) B. pertussis DNA (PCR) B.parapertussis DNA PCR Coronavirus OC43 (PCR) Coronavirus HKU1 (PCR) Coronavirus 229E (PCR) SARS-CoV-2 (PCR) Coronavirus NL63 (PCR) Human Metapneumovir PCR Influenza Type A (PCR) Influenza Type B (PCR) M. pneumoniae (PCR) Parainfluenza 1 (PCR) Parainfluenza 2 (PCR) Parainfluenza 3 (PCR) Parainfluenza 4 (PCR) RSV (PCR) Entero/Rhino (PCR) 02/24/21 02/24/21 02/24/21 01:30 07:15 07:15 WBC RBC Hgb Hct MCV MCH MCHC RDW Plt Count Neut % (Auto) Lymph % (Auto) [place] % (Auto) Eos % (Auto) Baso % (Auto) Neut # (Auto) Lymph # (Auto) [place] # (Auto) Eos # (Auto) Baso # (Auto) ESR PT 46.6 H INR 4.0 H ABG pH ABG pCO2 ABG pO2 ABG HCO3 ABG Total CO2 ABG O2 Saturation ABG Base Excess VBG pH VBG pCO2 VBG pO2 VBG HCO3 VBG Total CO2 VBG O2 Saturation VBG Base Excess FiO2 Sodium Potassium Chloride Carbon Dioxide BUN Creatinine Estimated GFR BUN/Creatinine Ratio Glucose Lactate Calcium Phosphorus Magnesium Total Bilirubin AST ALT Alkaline Phosphatase Total Creatine Kinase CK-MB (CK-2) CK-MB (CK-2) Rel Index Troponin I 0.031 0.028 C-Reactive Protein NT-Pro-B Natriuret Pep Total Protein Albumin Globulin Albumin/Globulin Ratio Procalcitonin Nasal Screen MRSA (PCR) Chlamy pneumoniae PCR Adenovirus (PCR) B. pertussis DNA (PCR) B.parapertussis DNA PCR Coronavirus OC43 (PCR) Coronavirus HKU1 (PCR) Coronavirus 229E (PCR) SARS-CoV-2 (PCR) Coronavirus NL63 (PCR) Human Metapneumovir PCR Influenza Type A (PCR) Influenza Type B (PCR) M. pneumoniae (PCR) Parainfluenza 1 (PCR) Parainfluenza 2 (PCR) Parainfluenza 3 (PCR) Parainfluenza 4 (PCR) RSV (PCR) Entero/Rhino (PCR) 02/24/21 02/24/21 07:15 07:15 WBC 6.1 RBC 3.70 L Hgb 10.6 L Hct 33.4 L MCV 90.4 MCH 28.6 MCHC 31.6 RDW 17.1 H Plt Count 142 L Neut % (Auto) 73.8 Lymph % (Auto) 9.4 L [place] % (Auto) 8.8 Eos % (Auto) 6.7 H Baso % (Auto) 1.3 Neut # (Auto) 4500 Lymph # (Auto) 600 L [place] # (Auto) 500 Eos # (Auto) 400 Baso # (Auto) 100 ESR PT INR ABG pH ABG pCO2 ABG pO2 ABG HCO3 ABG Total CO2 ABG O2 Saturation ABG Base Excess VBG pH VBG pCO2 VBG pO2 VBG HCO3 VBG Total CO2 VBG O2 Saturation VBG Base Excess FiO2 Sodium 141 Potassium 5.2 H Chloride 108 H Carbon Dioxide 27 BUN 44 H Creatinine 2.28 H Estimated GFR 27.6 L BUN/Creatinine Ratio 19.3 Glucose 81 Lactate Calcium 8.7 Phosphorus 3.7 Magnesium 1.9 Total Bilirubin AST ALT Alkaline Phosphatase Total Creatine Kinase CK-MB (CK-2) CK-MB (CK-2) Rel Index Troponin I C-Reactive Protein NT-Pro-B Natriuret Pep Total Protein Albumin Globulin Albumin/Globulin Ratio Procalcitonin Nasal Screen MRSA (PCR) Chlamy pneumoniae PCR Adenovirus (PCR) B. pertussis DNA (PCR) B.parapertussis DNA PCR Coronavirus OC43 (PCR) Coronavirus HKU1 (PCR) Coronavirus 229E (PCR) SARS-CoV-2 (PCR) Coronavirus NL63 (PCR) Human Metapneumovir PCR Influenza Type A (PCR) Influenza Type B (PCR) M. pneumoniae (PCR) Parainfluenza 1 (PCR) Parainfluenza 2 (PCR) Parainfluenza 3 (PCR) Parainfluenza 4 (PCR) RSV (PCR) Entero/Rhino (PCR) [facility] Medical History (HFpEF) heart failure with preserved ejection fraction Atrial fibrillation Cataract Cirrhosis COPD (chronic obstructive pulmonary disease) (~2011) Foot pain (~2012) Hearing deficit Heart failure, systolic Hyperlipidemia Hyperparathyroidism Hypertension Ingrown toenail Lower extremity neuropathy Lung cancer (~2012) Neck pain Normal stress echocardiogram (~09/12/10) Shoulder pain Skin infection Surgical History Status post parathyroidectomy (~1982) Surgical procedure planned (~06/08/12) Family History Sister Hypertension Social History household members: spouse Smoking Status: Former smoker Tobacco: How many years used: 30 Assessment & Plan Assessment & Plan narrative: Mr. Argueta is an 85M with H lung cancer, chf, pulmonary hypertension, afib, copd, etoh cirrhosis who presented with right leg cellulitis and acute on chronic hypoxemic respiratory failure. 1. Acute on chronic hypoxemic respiratory failure due to acute systolic CHF exacerbation with pulmonary edema -normal wbc, procalcitonin, no cough, unlikely infection, covid and respiratory pcr negative. Has been on 5L at home. Currently on heated high flow at 55L/77% FiO2. Continue to wean as tolerated -etiology is acute CHF exacerbation with pulmonary edema, lower extremity edema, and BNP>20204 -no chest pain, trop 0.036 -doubt PE, as has clear other etiology, INR is 3.7. DVT study pending. -started on lasix infusion, given bumex and metolazone per ICU consultation. Continue lasix infusion today. -ECHO pending, unable to obtain today due to availability. -continue to monitor intake and output, patient refused valero. Net negative 1.1 L as of this AM. -ideally pending echo if improving with diuresis goal would be discharge home on hospice on nasal cannula. 2. Atrial fibrillation -currently borderline bradycardic -metop xl 200 at home, continue at 50mg xl for now -continue digoxin -INR 3.7, trend daily 3. COPD -not in acute exacerbation 4. Lung cancer -off checkpoint inhibitor since october -has had discussions about hospice 5. 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 Elevated troponin likely cardiac demand ischemia from CHF -initial trop 0.036 -trend troponins -doubt ACS 7. EtOH cirrhosis -decompensated with ascites on abdomen, may be HF related as well? -continue diuresis as above 8. Right leg cellulitis, acute -started cefazolin -follow progress CODE: DNR/DNI, discussed with who is moving towards hospice, she understands he is unlikely to live much longer, she is ok with trying to get his respiratory status improved so he can go home, possibly with hospice Proxy: Charley Ellie, Dvt ppx: already anticoagulated with warfarin I have utilized all available immediate resources to obtain, update, or review the patient's current medications. Time Spent With Patient Critical Care time: I spent a total of [] minutes of critical care time on this patient's care today; this time is exclusive of procedural time.
[2021-02-24] MEDS: SODIUM CHLORIDE 0.9% 250 ML 15 ML IV (14:39)
--- NOTE | 2021-02-24 16:47 | PC.NURSE ---
Evening shift note: Pt sitting up in bed watching TV, RT at bedside adjusting HHF 55L/90% for SpO2 of 94%, ultra sound at bedside to R/O DVT, Dr Levy requests to turn up Lasix gtt to 7mg/4.2 mL/hr due to limited urine output, will bladder scan if no results within 1hr. Bed low and locked, alarm on, able to use call light appropriately, will continue to monitor.
--- NOTE | 2021-02-24 20:37 | PM.ICURNDS ---
- Date Patient Seen: 02/24/21 Time Patient Seen: 20:34 :: This patient was seen via real time interactive two-way audiovisual telecommunication. Note: 85 y.o. female with acute on chronic hypoxic respiratory failure due to postulated pneumonia. HFrEF exacerbation; also with ROSARIO superimposed on CKD. Comfortable on camera on 55 L/min 90% FiO2 HFNC; patient is DNR/DNI. Hospice is being considere. Continue present management as per bedside team. Discussed with RN.
[2021-02-24] MEDS: ACETAMINOPHEN 325 MG TABLET 650 MG PO (23:25)
[2021-02-25] VITALS (19 sets, daily range): BP systolic 117–133; BP diastolic 58–65; PULSE 55–74; RESP 14–36; TEMP 35.4–36.5; O2SAT 82–98
[2021-02-25] MEDS: AZTREONAM 1 GM in SODIUM CHLORIDE 0.9% 50 ML 100 ML IV ×3 (00:57→17:36)
[2021-02-25] MEDS: SODIUM CHLORIDE 0.9% FLUSH 10 ML IV ×3 (00:58→20:37)
[2021-02-25] MEDS: FUROSEMIDE 100 MG in SODIUM CHLORIDE 0.9% 50 ML IV ×2 (03:35→20:28)
[2021-02-25] MEDS: SODIUM CHLORIDE 0.9% 250 ML 15 ML IV (06:37)
[2021-02-25 08:38] LABS: Add Manual Diff / Slide Review NO; Basophils Absolute Auto 100 /uL (0-100); Basophils Percent Auto 1.3 % (0-2); Eosinophils Absolute Auto 500 /uL (0-450); Eosinophils Percent Auto 7.3 % (2-4); Hematocrit 34.6 % (41-53); Hemoglobin 11.1 g/dL (13.5-17.5); Lymphocytes Absolute Auto 700 /uL (1100-4500); Lymphocytes Percent Auto 9.8 % (25-40); Mean Corpuscular Hemoglobin 28.6 PG (26-34); Mean Corpuscular Volume 89.4 fL (80-100); Monocytes Absolute Auto 600 /uL (0-900); Monocytes Percent Auto 8.7 % (3-14); Neutrophils Absolute Auto 5400 /uL (1500-7000); Neutrophils Percent Auto 72.9 % (50-75); Platelet Count 158 X10^3/uL (150-400); Red Blood Cell Count 3.87 X10^6/uL (4.5-5.9); Red Cell Distribution Width 16.8 % (11.6-14.8); White Blood Cell Count 7.4 X10^3/uL (4.5-11.0)
[2021-02-25 08:50] LABS: INR 3.5 (0.9-1.3); Prothrombin Time 40.2 SECONDS (10.1-12.7)
[2021-02-25 08:56] LABS: Alanine Aminotransferase 13 IU/L (<50); Albumin 3.3 g/dL (3.5-5.0); Albumin Globulin Ratio 0.9 (1.0-2.8); Alkaline Phosphatase 148 U/L (38-126); Aspartate Aminotransferase 25 IU/L (17-59); BUN Creatinine Ratio 17.4 (6-22); Bilirubin Total 0.6 mg/dL (0.2-1.3); Blood Urea Nitrogen 45 mg/dL (9-20); Calcium 8.7 mg/dL (8.4-10.2); Carbon Dioxide 30 mmol/L (22-32); Chloride 105 mmol/L (98-107); Estimated Glomerular Filt Rate 23.9 mL/min (>60); Globulin 3.6 g/dL (1.7-4.1); Glucose 84 mg/dL (80-110); HEMOLYSIS < 15 (0-50); Magnesium 1.8 mg/dL (1.6-2.3); Sodium 140 mmol/L (137-145); Total Protein 6.9 g/dL (6.3-8.2)
[2021-02-25] MEDS: LINEZOLID 600 MG TABLET PO ×2 (08:57→20:37)
[2021-02-25] MEDS: METOPROLOL ER 50 MG TABLET PO (08:57)
[2021-02-25 08:59] LABS: Potassium 5.4 mmol/L (3.4-5.1)
--- NOTE | 2021-02-25 12:52 | PM.PN.EICU ---
Subjective Subjective :: This patient was seen via real time interactive two-way audiovisual telecommunication. patient remain on high flow, but is feeling better. lasi gtti ncreased, but seems to gettign mroe alkalotic Current Medications Current Medications Medications: Home Medications digoxin 250 mcg (0.25 mg) tablet (Lanoxin) 0.125 mg PO QDAY #0 10/29/12 [History Confirmed 02/24/21] metoprolol succinate 200 mg tablet,extended release 24 hr (Toprol XL) 200 mg PO QDAY #90 tab 02/09/18 [Rx Confirmed 02/24/21] furosemide 20 mg tablet (Lasix) 20 mg PO QDAY tab 05/23/20 [History Confirmed 02/24/21] gabapentin 300 mg capsule 300 mg PO BEDTIME #90 cap 09/11/20 [Rx Confirmed 02/24/21] Handicap Placard #1 ea 11/15/20 [Rx Confirmed 02/24/21] losartan 50 mg tablet See Rx Instructions .ROUTE .COMPLEX #90 tab 01/10/21 [Rx Confirmed 02/24/21] warfarin 5 mg tablet See Rx Instructions PO DAILY #90 tab 02/08/21 [Rx Confirmed 02/24/21] Visit Medications (administered) Generic Name Dose Route Start Last Admin Trade Name Freq PRN Reason Stop Dose Admin Acetaminophen 650 mg 02/23/21 17:00 02/24/21 23:25 Acetaminophen 325 Mg Tablet PO 650 mg Q6HR PRN Administration Fever/Mild Pain (1-3) Furosemide 100 mg/ Sodium 60 mls @ 3 mls/hr 02/23/21 20:00 02/25/21 03:35 Chloride IV 7 mg/hr CONT KENYATTA 4.2 mls/hr Administration 5 MG/HR Aztreonam 1 gm/ Sodium 50 mls @ 100 mls/hr 02/24/21 01:00 02/25/21 09:28 Chloride IV 100 mls/hr Q8H KENYATTA Administration Sodium Chloride 250 mls @ 21 mls/hr 02/24/21 14:30 02/25/21 06:37 Normal Saline 0.9% IV 15 mls/hr Q24H PRN Administration Flush Linezolid 600 mg 02/23/21 21:30 02/25/21 08:57 Linezolid 600 Mg Tablet PO 600 mg BID KENYATTA Administration Metoprolol Succinate 50 mg 02/24/21 09:00 02/25/21 08:57 Metoprolol Er 50 Mg Tablet PO 50 mg DAILY KENYATTA Administration Sodium Chloride 10 ml 02/23/21 23:35 02/25/21 00:58 Sodium Chloride 0.9% Flush IV 10 ml PRN PRN Administration Flush Sodium Chloride 10 ml 02/24/21 09:00 02/25/21 08:58 Sodium Chloride 0.9% Flush IV 10 ml BID KENYATTA Administration Objective Labs Result Diagrams: 02/25/21 08:20 02/25/21 08:20 Labs: Laboratory Results - last 24 hr 02/25/21 02/25/21 02/25/21 08:20 08:20 08:20 WBC 7.4 RBC 3.87 L Hgb 11.1 L Hct 34.6 L MCV 89.4 MCH 28.6 MCHC 32.0 RDW 16.8 H Plt Count 158 Neut % (Auto) 72.9 Lymph % (Auto) 9.8 L [place] % (Auto) 8.7 Eos % (Auto) 7.3 H Baso % (Auto) 1.3 Neut # (Auto) 5400 Lymph # (Auto) 700 L [place] # (Auto) 600 Eos # (Auto) 500 H Baso # (Auto) 100 PT 40.2 H D INR 3.5 H Sodium 140 Potassium 5.4 H Chloride 105 Carbon Dioxide 30 BUN 45 H Creatinine 2.58 H Estimated GFR 23.9 L BUN/Creatinine Ratio 17.4 Glucose 84 Calcium 8.7 Magnesium 1.8 Total Bilirubin 0.6 AST 25 ALT 13 Alkaline Phosphatase 148 H Total Protein 6.9 Albumin 3.3 L Globulin 3.6 Albumin/Globulin Ratio 0.9 L Exam Vital Signs (past 8 hours): - 02/25/21 07:55 02/25/21 08:45 02/25/21 08:57 Temperature 95.8 F L Pulse Rate 61 74 69 Respiratory Rate 14 16 Blood Pressure 120/58 L 120/58 L 120/58 L Pulse Oximetry 92 92 02/25/21 11:15 02/25/21 11:45 Temperature 96.0 F L Pulse Rate 69 71 Respiratory Rate 18 20 Blood Pressure 120/58 L 133/65 Pulse Oximetry 92 91 Fraction of Inspired Oxygen 77 Oxygen Delivery Method Heated High Flow Oxygen Flow Rate 55 Narrative Exam Narrative: surrogste for exam is primary team Assessment & Plan Assessment & Plan narrative: Assessment & Plan narrative: Acute hypoxemic resp failure HFrEF - uf unknown possible prob gram negative pna Lung Ca afib plerual effusion of R Plan continue high flow NC - wean off as tolerated TTE adat continue lasix for goal negative balance may need paracentesis for help with volume ( although this is not hepatic hydrothorax, I do beleive draiining the ascites will assist i his effusion. May need throacentesis if this does not imrpove thougn) cont coumadin, though can cnsider NOAC for easier dosing on d/c LE venous US [place] r/o DVT tnrend bmp trend INR and cbc pt/ot cont zyvox and aztreonam DNR/I , hospice would be appropirate CCT 35 min Time Spent With Patient Critical Care time: I spent a total of [] minutes of critical care time on this patient's care today; this time is exclusive of procedural time.
--- NOTE | 2021-02-25 15:13 | PC.NURSE ---
Dressing to right ankle changed, open blister cleansed with normal saline and then allevyn foam bordered dressing applied. Patient states edema and wound is approved. Skin tears to patient's arms (present on admission) cleansed and allevyn dressings placed. Call light within reach.
--- NOTE | 2021-02-25 15:42 | P.PN_ITS ---
Subjective Subjective Date Patient Seen: 02/25/21 Time Patient Seen: 08:30 Interval history: This is an 85-year-old male admitted with acute on chronic hypoxemic respiratory failure secondary to volume overload from diastolic heart failure.?No acute events overnight. He feels subjectively much improved with his breathing today but still on 55L and 77% this AM. Held further diuresis today given rising bicarb. Considering diamox depending on repeat labs later today after discussion with tele-dust control engineer this morning. Exam Vital Signs (past 8 hours): - 02/25/21 07:55 02/25/21 08:45 02/25/21 08:57 Temperature 95.8 F L Pulse Rate 61 74 69 Respiratory Rate 14 16 Blood Pressure 120/58 L 120/58 L 120/58 L Pulse Oximetry 92 92 02/25/21 11:15 02/25/21 11:45 02/25/21 13:09 Temperature 96.0 F L Pulse Rate 69 71 65 Respiratory Rate 18 20 18 Blood Pressure 120/58 L 133/65 133/65 Pulse Oximetry 92 91 91 02/25/21 15:09 Temperature Pulse Rate 71 Respiratory Rate 18 Blood Pressure 133/65 Pulse Oximetry 95 Fraction of Inspired Oxygen 77 Oxygen Delivery Method Heated High Flow Oxygen Flow Rate 55 Narrative Exam Narrative: GEN: no acute distress,fatigued and chronically ill appearing. HEENT: PERRL, moist mucous membranes CV: bradycardic, irregular, 3-4/6 systolic murmur PULM: crackles bilaterally in the bases, no wheezes ABD: soft, nontender, distended, normal bowel sounds, no organomegaly EXT: 2+ pitting edema bilateral lower extremities. SKIN: ulcer noted on right leg previously, currently bandaged, no expanding erythema. NEURO: awake and alert, no focal deficits, moving all extremities Objective Labs Result Diagrams: 02/25/21 08:20 02/25/21 08:20 Labs: Laboratory Results - last 24 hr 02/25/21 02/25/21 02/25/21 08:20 08:20 08:20 WBC 7.4 RBC 3.87 L Hgb 11.1 L Hct 34.6 L MCV 89.4 MCH 28.6 MCHC 32.0 RDW 16.8 H Plt Count 158 Neut % (Auto) 72.9 Lymph % (Auto) 9.8 L [place] % (Auto) 8.7 Eos % (Auto) 7.3 H Baso % (Auto) 1.3 Neut # (Auto) 5400 Lymph # (Auto) 700 L [place] # (Auto) 600 Eos # (Auto) 500 H Baso # (Auto) 100 PT 40.2 H D INR 3.5 H Sodium 140 Potassium 5.4 H Chloride 105 Carbon Dioxide 30 BUN 45 H Creatinine 2.58 H Estimated GFR 23.9 L BUN/Creatinine Ratio 17.4 Glucose 84 Calcium 8.7 Magnesium 1.8 Total Bilirubin 0.6 AST 25 ALT 13 Alkaline Phosphatase 148 H Total Protein 6.9 Albumin 3.3 L Globulin 3.6 Albumin/Globulin Ratio 0.9 L [facility] Medical History (HFpEF) heart failure with preserved ejection fraction Atrial fibrillation Cataract Cirrhosis COPD (chronic obstructive pulmonary disease) (~2011) Foot pain (~2012) Hearing deficit Heart failure, systolic Hyperlipidemia Hyperparathyroidism Hypertension Ingrown toenail Lower extremity neuropathy Lung cancer (~2012) Neck pain Normal stress echocardiogram (~09/12/10) Shoulder pain Skin infection Surgical History Status post parathyroidectomy (~1982) Surgical procedure planned (~06/08/12) Family History Sister Hypertension Social History household members: spouse Smoking Status: Former smoker Tobacco: How many years used: 30 Assessment & Plan Assessment & Plan narrative: Mr. Argueta is an 85M with PMH lung cancer, chf, pulmonary hypertension, afib, copd, etoh cirrhosis who presented with right leg cellulitis and acute on chronic hypoxemic respiratory failure. 1. Acute on chronic hypoxemic respiratory failure due to acute systolic CHF exac erbation with pulmonary edema -normal wbc, procalcitonin, no cough, unlikely infection, covid and respiratory pcr negative. Has been on 5L at home. Currently on heated high flow at 55L/77% FiO2. Continue to wean as tolerated. Goal O2 89-96%. -etiology is acute CHF exacerbation with pulmonary edema, lower extremity edema, and BNP>[id number]. TTE showed ventricular flattening but normal EF consistent with volume overload. -no chest pain, trop 0.036 -doubt PE, as has clear other etiology, INR is 3.7. DVT study negative. -started on lasix infusion, given bumex and metolazone per ICU consultation. Lasix infusion initially at 5 mg /hr, now at 7 mg per hour. Currently diuresing very slow, but net negative. Rising creatinine this AM so hesitant to increase diuresis at this time. Consider diamox for increasing alkalosis. -continue to monitor intake and output, patient refused valero. Net negative 3L since admission. -consider paracentesis of abdominal ascites. tomorrow to possibly assist with oxygenation. though they may be resistant given patient's INR. Will hold coumadin for now. 2. Atrial fibrillation -currently borderline bradycardic -metop xl 200 at home, continue at 50mg xl for now -continue digoxin, held coumadin as noted above. -INR 3.7, trend daily 3. COPD -not in acute exacerbation 4. Lung cancer -off checkpoint inhibitor since october -has had discussions about hospice 5. 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 -will try diuresis as above and see if improved kidney function 6. Elevated troponin likely cardiac demand ischemia from CHF -initial trop 0.036 -trend troponins -doubt ACS 7. EtOH cirrhosis or possible congestive hepatopathy -decompensated with ascites on abdomen, may be HF related as well? -continue diuresis as above 8. Right leg cellulitis, acute -started cefazolin -continues to improve. can transition to PO antibiotics on discharge. CODE: DNR/DNI, discussed with who is moving towards hospice, she understands he is unlikely to live much longer, she is ok with trying to get his respiratory status improved so he can go home, possibly with hospice Proxy: Charley Argueta, Dvt ppx: already anticoagulated with warfarin I have utilized all available immediate resources to obtain, update, or review the patient's current medications. I spent 30 minutes providing critical care management this patient. This excludes time spent in performing separately billed procedures. Time Spent With Patient Critical Care time: I spent a total of [] minutes of critical care time on this patient's care today; this time is exclusive of procedural time.
--- NOTE | 2021-02-25 20:19 | PC.NURSE ---
02/25/2021 1950 Patient uses urinal independently in bed without spillage. O2 sat drops to 68% while on heated high flow nasal cannula at 55L 50%. Circuit flushed with 100% O2 with limited success (O2 sat = 81%). FiO2 increased to 70%.
--- NOTE | 2021-02-25 22:15 | PM.ICURNDS ---
- :: Case discussed with RN. Patient is pain-free and comfortable on HFNC. He is DNR/DNI. Hospice is being considered. Given entire situation, patient could be down-graded to acute care status; defer to bedside team. No recommendations/interventions from teleICU.
[2021-02-26] VITALS (27 sets, daily range): BP systolic 122–133; BP diastolic 59–73; PULSE 64–135; RESP 13–47; TEMP 35.6–36; O2SAT 87–99
[2021-02-26] MEDS: AZTREONAM 1 GM in SODIUM CHLORIDE 0.9% 50 ML 100 ML IV ×3 (01:41→17:21)
[2021-02-26 05:04] LABS: Add Manual Diff / Slide Review NO; Basophils Absolute Auto 100 /uL (0-100); Basophils Percent Auto 1.1 % (0-2); Eosinophils Absolute Auto 400 /uL (0-450); Eosinophils Percent Auto 6.5 % (2-4); Hematocrit 34.8 % (41-53); Hemoglobin 11.2 g/dL (13.5-17.5); Lymphocytes Absolute Auto 700 /uL (1100-4500); Lymphocytes Percent Auto 10.6 % (25-40); Mean Corpuscular HGB Conc 32.1 % (30-36); Mean Corpuscular Hemoglobin 28.6 PG (26-34); Mean Corpuscular Volume 88.9 fL (80-100); Monocytes Absolute Auto 500 /uL (0-900); Monocytes Percent Auto 7.9 % (3-14); Neutrophils Absolute Auto 4500 /uL (1500-7000); Neutrophils Percent Auto 73.9 % (50-75); Platelet Count 158 X10^3/uL (150-400); Red Blood Cell Count 3.91 X10^6/uL (4.5-5.9); Red Cell Distribution Width 16.8 % (11.6-14.8); White Blood Cell Count 6.1 X10^3/uL (4.5-11.0)
[2021-02-26 05:07] LABS: INR 2.8 (0.9-1.3); Prothrombin Time 32.2 SECONDS (10.1-12.7)
[2021-02-26 05:12] LABS: Alanine Aminotransferase 11 IU/L (<50); Albumin 3.3 g/dL (3.5-5.0); Albumin Globulin Ratio 0.9 (1.0-2.8); Alkaline Phosphatase 158 U/L (38-126); Aspartate Aminotransferase 26 IU/L (17-59); BUN Creatinine Ratio 17.9 (6-22); Bilirubin Total 0.6 mg/dL (0.2-1.3); Blood Urea Nitrogen 45 mg/dL (9-20); Calcium 8.6 mg/dL (8.4-10.2); Carbon Dioxide 27 mmol/L (22-32); Chloride 106 mmol/L (98-107); Estimated Glomerular Filt Rate 24.6 mL/min (>60); Globulin 3.6 g/dL (1.7-4.1); Glucose 83 mg/dL (80-110); HEMOLYSIS < 15 (0-50); Magnesium 1.8 mg/dL (1.6-2.3); Potassium 4.4 mmol/L (3.4-5.1); Sodium 139 mmol/L (137-145); Total Protein 6.9 g/dL (6.3-8.2)
[2021-02-26] MEDS: METOPROLOL ER 50 MG TABLET PO (08:37)
[2021-02-26] MEDS: LINEZOLID 600 MG TABLET PO ×2 (09:02→20:54)
[2021-02-26] MEDS: SODIUM CHLORIDE 0.9% FLUSH 10 ML IV ×2 (09:03→20:54)
--- NOTE | 2021-02-26 09:26 | CM.DPC ---
Addendum entered by Teresa Molina 02/26/21 16:33: Spoke with spouse/Charley and she confirms that she has contacted [facility] today. Informational visit scheduled for approximately 12:30pm today. Spouse in agreement to take patient home with hospice but needs to make sure she has DME prior to returning home. JOSE Original Note: DCP/continued: Received call on 02-25-21 from Liz at [facility]. Liz reports that they have received the referral and that she will call patient's spouse for informational visit. Received second call from Liz at [facility] indicating that spouse told her to check back with patient/spouse on 02-27 re: hospice need? AD COPY WRITER updated Dr. Jensen this AM. Dr. Jensen reports that she will speak with patient and spouse re: expectations of future medical treatment. In addition, it is unclear whether or not patient/spouse are waiting on provider's from [facility] to weigh in? P: Pending. JOSE
--- NOTE | 2021-02-26 11:52 | P.PN_ITS ---
Subjective Subjective Date Patient Seen: 02/26/21 Interval history: 85 y/o male admitted with acute on chronic respiratory failure secondary to Diastolic heart failure. Patient reports his breathing is better. However, he continues to require high flow oxygen to maintain saturations of 90% or higher. Exam Vital Signs (past 8 hours): - 02/26/21 04:00 02/26/21 05:00 02/26/21 05:27 Temperature Pulse Rate 64 66 72 Respiratory Rate 42 H 32 H 24 Blood Pressure 123/62 Pulse Oximetry 97 89 L 97 02/26/21 06:00 02/26/21 08:01 02/26/21 08:37 Temperature 96.8 F L Pulse Rate 70 69 76 Respiratory Rate 30 H 18 Blood Pressure 133/73 133/73 Pulse Oximetry 94 89 L 02/26/21 10:04 02/26/21 10:57 Temperature Pulse Rate 79 Respiratory Rate Blood Pressure Pulse Oximetry 91 Fraction of Inspired Oxygen 65 Oxygen Delivery Method High Flow Nasal Cannula Oxygen Flow Rate 10 Narrative Exam Narrative: ill appearing male lying in bed Const Other: Patient denies shortness of breath Resp Other: Lungs: decreased breath sounds with coarse rhonchi bilaterally Cardio Other: Irregularly irregular, nl Sl S2 GI Other: soft/ non tender/ non distended Skin Other: bruising on anterior chest Extrem Other: 2+ edema bilaterally Objective Labs Result Diagrams: 02/26/21 04:30 02/26/21 04:30 Labs: Laboratory Results - last 24 hr 02/26/21 02/26/21 02/26/21 04:30 04:30 04:30 WBC 6.1 RBC 3.91 L Hgb 11.2 L Hct 34.8 L MCV 88.9 MCH 28.6 MCHC 32.1 RDW 16.8 H Plt Count 158 Neut % (Auto) 73.9 Lymph % (Auto) 10.[address] [facility] % (Auto) 7.9 Eos % (Auto) 6.5 H Baso % (Auto) 1.1 Neut # (Auto) 4500 Lymph # (Auto) [address] [facility] # (Auto) 500 Eos # (Auto) 400 Baso # (Auto) 100 PT 32.2 H D INR 2.8 H Sodium 139 Potassium 4.4 Chloride 106 Carbon Dioxide 27 BUN 45 H Creatinine 2.52 H Estimated GFR 24.6 L BUN/Creatinine Ratio 17.9 Glucose 83 Calcium 8.6 Magnesium 1.8 Total Bilirubin 0.6 AST 26 ALT 11 Alkaline Phosphatase 158 H Total Protein 6.9 Albumin 3.3 L Globulin 3.6 Albumin/Globulin Ratio 0.9 L PFSH Medical History (HFpEF) heart failure with preserved ejection fraction Atrial fibrillation Cataract Cirrhosis COPD (chronic obstructive pulmonary disease) (~2011) Foot pain (~2012) Hearing deficit Heart failure, systolic Hyperlipidemia Hyperparathyroidism Hypertension Ingrown toenail Lower extremity neuropathy Lung cancer (~2012) Neck pain Normal stress echocardiogram (~09/12/10) Shoulder pain Skin infection Surgical History Status post parathyroidectomy (~1982) Surgical procedure planned (~06/08/12) Family History Sister Hypertension Social History household members: spouse Smoking Status: Former smoker Tobacco: How many years used: 30 Assessment & Plan Assessment & Plan narrative: : Mr. Argueta is an 85M with PMH lung cancer, chf, pu lmonary hypertension, afib, copd, etoh cirrhosis who presented with right leg cellulitis and acute on chronic hypoxemic respiratory failure. 1. Acute on chronic hypoxemic respiratory failure due to acute systolic CHF exacerbation with pulmonary edema -normal wbc, procalcitonin, no cough, unlikely infection, covid and respiratory pcr negative. Has been on 5L at home. Currently on heated high flow at 55L/77% FiO2. Continue to wean as tolerated. Goal O2 89-96%. -etiology is acute CHF exacerbation with pulmonary edema, lower extremity edema, and BNP>[id number]. TTE showed ventricular flattening but normal EF consistent with volume overload. -no chest pain, trop 0.036 -doubt PE, as has clear other etiology, INR is 3.7. DVT study negative. -started on lasix infusion, given bumex and metolazone per ICU consultation. Lasix infusion initially at 5 mg /hr, now at 7 mg per hour. Currently diuresing very slow, but net negative. Rising creatinine this AM so hesitant to increase diuresis at this time. Consider diamox for increasing alkalosis. -continue to monitor intake and output, patient refused valero. Net negative 3L since admission. -consider paracentesis of abdominal ascites. tomorrow to possibly assist with oxygenation. though they may be resistant given patient's INR. Will hold coumadin for now. 2. Atrial fibrillation --metop xl 200 at home, continue at 50mg xl for now -continue digoxin, held coumadin as noted above. -INR 2.8 -defer paracentesis -will resume coumadin 3. COPD -not in acute exacerbation 4. Lung cancer -off checkpoint inhibitor since october -has had discussions about hospice -d/w Dr. Johnson, keytruda discontinued previously -hypoxia likely realted to progression of cancer 5. 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 -will try diuresis as above and see if improved kidney function -diuresis discontinued yesterday 6. Elevated troponin likely cardiac demand ischemia from CHF -initial trop 0.036 -trend troponins -doubt ACS 7. EtOH cirrhosis or possible congestive hepatopathy -decompensated with ascites on abdomen, may be HF related as well? -continue diuresis as above, held today 8. Right leg cellulitis, acute -started cefazolin -continues to improve. can transition to PO antibiotics on discharge. CODE: DNR/DNI, discussed with who is moving towards hospice, she understands he is unlikely to live much longer, she is ok with trying to get his respiratory status improved so he can go home, possibly with hospice Plan for discharge home on hospice Time Spent With Patient Critical Care time: I spent a total of [] minutes of critical care time on this patient's care today; this time is exclusive of procedural time.
--- NOTE | 2021-02-26 13:35 | PC.NURSE ---
PT PREPARING FOR D/C TO HOME IN NEXT DAY OR SO WITH HOSPICE INVOLVEMENT- REMOVED [employer]BILE HOME [employer]ORER AND PLACED ON HFNC AT 10 LITERS PER MD RECOMMENDATIONS THIS IS THE MOST O2 THAT CAN BE DELIVERED AT HOME PER RT- INITIALLY HIS SPO2 WENT DOWN TO 78% BUT GRADUALLY INCREASED TO 92% ON THE 10 LITER -
[2021-02-26] MEDS: WARFARIN 5 MG TABLET 2.5 MG PO (17:20)
[2021-02-27] VITALS (14 sets, daily range): BP systolic 126–130; BP diastolic 69–71; PULSE 66–78; RESP 15–24; TEMP 36.4–36.6; O2SAT 76–99
[2021-02-27] MEDS: AZTREONAM 1 GM in SODIUM CHLORIDE 0.9% 50 ML 100 ML IV ×2 (01:44→08:55)
[2021-02-27] MEDS: ACETAMINOPHEN 325 MG TABLET 650 MG PO (05:54)
[2021-02-27 06:41] LABS: Add Manual Diff / Slide Review NO; Basophils Absolute Auto 100 /uL (0-100); Basophils Percent Auto 1.1 % (0-2); Eosinophils Absolute Auto 300 /uL (0-450); Eosinophils Percent Auto 4.8 % (2-4); Hematocrit 35.3 % (41-53); Hemoglobin 11.4 g/dL (13.5-17.5); Lymphocytes Absolute Auto 700 /uL (1100-4500); Lymphocytes Percent Auto 10.9 % (25-40); Mean Corpuscular HGB Conc 32.3 % (30-36); Mean Corpuscular Hemoglobin 28.6 PG (26-34); Mean Corpuscular Volume 88.6 fL (80-100); Monocytes Absolute Auto 400 /uL (0-900); Monocytes Percent Auto 7.2 % (3-14); Neutrophils Absolute Auto 4700 /uL (1500-7000); Platelet Count 179 X10^3/uL (150-400); Red Blood Cell Count 3.99 X10^6/uL (4.5-5.9); Red Cell Distribution Width 17.2 % (11.6-14.8); White Blood Cell Count 6.1 X10^3/uL (4.5-11.0)
[2021-02-27 06:46] LABS: INR 2.5 (0.9-1.3)
[2021-02-27 06:50] LABS: Alanine Aminotransferase 13 IU/L (<50); Albumin 3.3 g/dL (3.5-5.0); Albumin Globulin Ratio 0.8 (1.0-2.8); Alkaline Phosphatase 158 U/L (38-126); Aspartate Aminotransferase 31 IU/L (17-59); BUN Creatinine Ratio 17.5 (6-22); Bilirubin Total 0.6 mg/dL (0.2-1.3); Blood Urea Nitrogen 44 mg/dL (9-20); Calcium 8.8 mg/dL (8.4-10.2); Carbon Dioxide 27 mmol/L (22-32); Chloride 106 mmol/L (98-107); Estimated Glomerular Filt Rate 24.6 mL/min (>60); Globulin 3.9 g/dL (1.7-4.1); Glucose 90 mg/dL (80-110); HEMOLYSIS < 15 (0-50); Magnesium 1.7 mg/dL (1.6-2.3); Sodium 140 mmol/L (137-145); Total Protein 7.2 g/dL (6.3-8.2)
[2021-02-27] MEDS: SODIUM CHLORIDE 0.9% FLUSH 10 ML IV (08:54)
[2021-02-27] MEDS: LINEZOLID 600 MG TABLET PO (08:55)
[2021-02-27] MEDS: METOPROLOL ER 50 MG TABLET PO (08:55)
--- NOTE | 2021-02-27 11:59 | CM.DPC ---
DCP/continued: Reviewed chart. Spoke with Dr. Jensen this AM and she reports that patient can d/c home with hospice once arrangements made. CLERICAL CLERK [facility] with [facility] , she reports that DME is being delivered this AM. Liz also reports that hospice can see patient in the home on 03-01- between 10:00-11:00am. CLERICAL CLERK spoke with spouse/Charley re:above. Charley reports that DME has been delivered and that she would like to take patient home today. Charley aware that hospice will not be there until but Charley feels that she can manage at home with patient just fine. Spoke with Dr. Jensen and updated her on patient/spouse wishes. Provider in agreement to discharge patient home today with the understanding that hospice will not see patient until 03-01. RN updated. P: Home today. Hospice to see on 03-01. D/C summary to be faxed to [facility] when it becomes available. JOSE
--- NOTE | 2021-03-07 06:47 | P.DS_ITS ---
History of Present Illness History of Present Illness Date Patient Seen: 02/27/21 Chief complaint: Wound On Rt Leg, Infected Narrative: Mr. Argueta is an 85M with PMH lung cancer not on treatment with chronic respiratory failure on 5L O2, CHFrEF with severe tricuspid regurigtation, pulmonary hypertension, COPD, afib, HTN who comes to the hospital initially with concern for ulcer and infection on right leg, but found to be hypoxemic. His states that the last treatment he had for his lung cancer was in October,. Since then has been off treatment. Has discussed within the last few weeks hospice with PCP. He has been chronically getting more fatigued, lethargic, wheelchair bound. He is on 5L O2 at home. He has been increasing swelling over weeks in his belly and lower extremities. Within the last three days had ulcer and erythema develop on his right leg. He came to the ED for help with this wound. He has not had cough, fevers/chills, abdominal pain, chest pain. In the ED workup was done, he was noted to be afebrile, tachypneic in the 20s, sats in the 70s on 5L, he was placed on nonrebreather. Labs notable for WBC 7.4, creatinine 2.23, troponin 0.036, BNP 97507, procalcitonin 0.11, chest xray showed pulmonary edema. Respiratory virus panel negative, COVID negative. He had ankle xray that showed no acute process. Abdominal ultrasound showed ascites. He was ordered for antibiotics and IV lasix and admitted for further treatment. Discharge Providers Provider Date of admission: 02/23/21 16:43 Discharge Date: 02/27/21 Primary care physician: Ashwin Shepherd DO Consults: 02/23/21 17:04 Consult to Hospice Referral Routine Comment: Discharge provider: Regi Jensen MD Summary Hospital Course Discharge Diagnosis: 1. Acute on Chronic Hypoxic Respiratory Failure 2. Acute Systolic Heart Failure 3. Lung Cancer 4. Chronic Atrial Fibrillation 5. COPD 6. ROSARIO 7. Elevated Troponin likely secondary to demand ischemia 8.Alcoholic Cirrohosis 9. Right leg cellulitis Hospital Course: patient was admitted for acute on chronic respiratory failure. He was diuresed aggressively with excellent urine output. Patient was treated for acute systolic heart failure. Despite diuresis, he continued to require high flow oxygen. His INR was elevated at 3.7 and PE was felt not to be likely. We considered paracentesis to imrove pulmonary status but felt not to be indicated. The patient was treated for atrial fibrillation with metoprolol his coumadin was held. Patient had an elevated troponin which was felt to be secodary to demand ischemia. He was started on cefazolin and transitioned to oral antibiotics. As the patient was not making any progress in terms of improving oxygenation a decision was made to discharge the patient home on hospice. He was discharged on up to 10 liters of oxygen for comfort under the care of hospice. this was discussed with his oncologist who agreed with the plan. Patient was discharged home for end of life care. Status at Discharge Cognitive/behavioral status at discharge: oriented Functional status at discharge: bed bound Overall status at discharge: patient is not back to baseline Exam Vital Signs (past 8 hours): Fraction of Inspired Oxygen 65 Oxygen Delivery Method High Flow Nasal Cannula Oxygen Flow Rate 8 Narrative Exam Narrative: ill appearing male lying in bed who requires high flow oxygen Resp Other: decreased breath sounds Cardio Other: Irregularly irregular nl Sl S2 GI Other: Abd: soft/ non tender/ nondistended Extrem Other: 2+ edema bilaterally Objective Labs Result Diagrams: 02/27/21 06:30 02/27/21 06:30 [facility] Medical History (HFpEF) heart failure with preserved ejection fraction Atrial fibrillation Cataract Cirrhosis COPD (chronic obstructive pulmonary disease) (~2011) Foot pain (~2012) Hearing deficit Heart failure, systolic Hyperlipidemia Hyperparathyroidism Hypertension Ingrown toenail Lower extremity neuropathy Lung cancer (~2012) Neck pain Normal stress echocardiogram (~09/12/10) Shoulder pain Skin infection Surgical History Status post parathyroidectomy (~1982) Surgical procedure planned (~06/08/12) Family History Sister Hypertension Social History household members: spouse Smoking Status: Former smoker Tobacco: How many years used: 30 Discharge Assessment & Plan Assessment and Plan Assessment: 1. Acute on Chronic Respiratory Failure 2. Acute Systolic Heart Failure 3. Lung Cancer 4. Chronic atrial fibrillation 5. Right leg cellulitis 6. ROSARIO 7. Demand Ischmemia Patient was discharged home with hospice Discharge Plan Discharge Plan Patient Disposition: Hospice - Home Provider Discharge Comment: Hospice [facility] Discharge orders & Medications Prescriptions: New metoprolol succinate 50 mg Tablet Extended Release 24 Hr 50 mg PO DAILY Qty: 30 RF: 0 warfarin 5 mg Tablet 2.5 mg PO DAILY@1700 Qty: 14 RF: 0 morphine 10 mg/5 mL solution 10 mg PO Q6H PRN (Reason: dyspnea) Qty: 100 RF: 0 lorazepam [Ativan] 1 mg tablet 1 mg PO TID PRN (Reason: anxiety) Qty: 14 RF: 0 ondansetron HCl [Zofran] 4 mg tablet 4 mg PO Q8H PRN (Reason: nausea and vomiting) Qty: 14 RF: 0 Continued digoxin [Lanoxin] 250 MCG tablet 0.125 mg PO QDAY Qty: 0 RF: 0 gabapentin 300 mg capsule 300 mg PO BEDTIME Qty: 90 RF: 3 furosemide [Lasix] 20 mg tablet 20 mg PO QDAY RF: 0 Discontinued losartan 50 mg tablet See Rx Instructions .ROUTE .COMPLEX Qty: 90 RF: 0 metoprolol succinate [Toprol XL] 200 mg tablet extended release 24 hr 200 mg PO QDAY Qty: 90 RF: 3 warfarin 5 mg tablet See Rx Instructions PO DAILY Qty: 90 RF: 1 No Action (DME) Handicap Placard Qty: 1 RF: 0 Medication counseling provided by Pharmacist: Yes Follow up/Referrals: Ashwin Shepherd, DO [Primary Care Provider] - Discharge Health Status Multidrug resistant organism: No MDRO Diet/Activity/Treatments Diet: Diet as Tolerated Visit Report/Discharge Packet Instructions: DI for Shortness of Breath Discharge Data Primary Care Provider: Ashwin Shepherd
== END 2021-02-27 13:15 | disposition hospice, home (50) | DRG 291 ==
LOC: ED 16:27 → AC 16:44 → ICU 17:57
PROVIDERS: Internal Medicine; Physician Assistant; Admitting Provider Internal Medicine; Emergency Provider Emergency Medicine; Family Provider Family Medicine; PCP Family Medicine; Referring Provider Emergency Medicine; Visit Provider Internal Medicine
DX: I13.0 Hypertensive heart and chronic kidney disease with heart failure and stage 1 through stage 4 chronic kidney disease, or unspecified chronic kidney disease (principal); J96.21 Acute and chronic respiratory failure with hypoxia; I50.21 Acute systolic (congestive) heart failure; N18.4 Chronic kidney disease, stage 4 (severe); I24.8 Other forms of acute ischemic heart disease; L03.115 Cellulitis of right lower limb; C34.90 Malignant neoplasm of unspecified part of unspecified bronchus or lung; L97.319 Non-pressure chronic ulcer of right ankle with unspecified severity; I48.19 Other persistent atrial fibrillation; N17.9 Acute kidney failure, unspecified; K70.31 Alcoholic cirrhosis of liver with ascites; J44.9 Chronic obstructive pulmonary disease, unspecified; Z99.81 Dependence on supplemental oxygen; Z87.891 Personal history of nicotine dependence; Z20.822 Contact with and (suspected) exposure to COVID-19; Z66 Do not resuscitate
CPT/HCPCS: 36415; 36600; 71045; 73600; 76705; 80048; 80053; 82550; 82805; 83605; 83735; 83880; 84100; 84145; 84484; 85025; 85610; 85651; 86140; 87040; 87070; 87075; 87205; 87633; 87635; 87797; 93005; 93306; 93970; 94762; 99285; 99291; 99292; C9803; J0690; J1940